=== PATIENT | female | born 1990 | race Caucasian/White ===

== ENCOUNTER → 2018-04-19 16:23 | Outpatient (CLI) | payer BC, SELFPAY | LOC: RAD 16:27 | PROVIDERS: Family Provider Family Medicine; PCP Family Medicine; Visit Provider Family Medicine | DX: M79.672 Pain in left foot (principal) | CPT/HCPCS: 73630 ==

== ENCOUNTER 2022-06-10 17:26 | Emergency (ER) | payer BC, SELFPAY ==
[2022-06-10 17:27] VITALS: BP 125/99; PULSE 90; RESP 15; TEMP 36.8; O2SAT 99; BMI 20.1
--- NOTE | 2022-06-10 17:59 | CT_ITS ---
STUDY: CT ABDOMEN AND PELVIS WITHOUT CONTRAST REASON FOR EXAM: Female, 31 years old. Right flank pain RADIATION DOSAGE (If Supplied By Facility): CTDIvol = ( 6.04 ) mGy, DLP = ( 259.71 ) mGycm TECHNIQUE: Transaxial images were obtained from the dome of the diaphragm to the symphysis pubis without oral contrast, and without intravenous contrast. Sagittal and coronal images were reconstructed. Individualized dose optimization techniques were used for this CT. COMPARISON: None. FINDINGS: The visualized lung bases are unremarkable. The visualized portions of the heart are within normal limits. Normal liver. Normal gallbladder and extrahepatic biliary system. Normal spleen. Normal pancreas. Normal bilateral adrenal glands. Normal right kidney. Normal left kidney. No stones or hydronephrosis. Normal visualized stomach. Normal small intestine. Normal colon. There is moderate stool. There is non-visualization of the appendix. Normal abdominal aorta. Normal inferior vena cava. Normal retroperitoneum. Normal urinary bladder. Normal visualized uterus. There is no free fluid in the abdomen or pelvis. Normal abdominal wall. Normal osseous structures. CT/Abdomen/Pelvis without Cont IMPRESSION: No mass or obstruction. No stones or hydronephrosis. Moderate stool. Electronically Signed: Mars Ford MD at 19:51 EDT ,
--- NOTE | 2022-06-10 18:00 | EDS_ITS ---
HPI History of Present Illness Chief Complaint: Abd Pain Informant: patient Onset/Context/Timing Onset: Yesterday Context: Gradual Onset Current Severity: Mild Maximum Severity: Moderate Narrative Narrative: Patient presents with right flank pain. She states pain started last evening. She was recently treated for UTI and completed a course of Bactrim. She states she still has slight burning at the end of urination but not nearly as severe as she had previously. No fever or chills. She denies any prior abdominal surgeries. No history of ovarian cyst. PFSH PFSH Medical History no medical history no medical history Home Medications ibuprofen 200 mg tablet 200 mg PO TID-QID PRN 11/29/17 [History Last Taken Unknown] azithromycin 250 mg tablet See Rx Instructions PO .COMPLEX #6 tabs 08/01/21 [Rx Last Taken Unknown] benzonatate 100 mg capsule 200 mg PO TID PRN cough #30 caps 08/01/21 [Rx Last Taken Unknown] Allergy/AdvReac Type Severity Reaction Status Date / Time No Known Allergies Allergy Verified 06/10/22 17:27 Social History Smoking Status: Never smoker alcohol intake: never ROS ROS ED Constitutional Constitutional ED: Denies chills or fever(s) Eyes Eyes: Denies change in vision or discharge from eye(s) ENT ENT ED: Denies discharge from eye(s), rhinorrhea or sore throat Cardiovascular Cardiovascular: Denies chest pain or palpitations Respiratory/Chest Respiratory/Chest: Denies cough or dyspnea Gastrointestinal Gastrointestinal: Reports abdominal pain; Denies diarrhea, nausea or vomiting Genitourinary Genitourinary ED: Reports dysuria Musculoskeletal Musculoskeletal: Denies back pain or extremity pain Integumentary Denies Abrasions or rash Neurologic Neurologic: Denies headache(s) or weakness Allergic/Immunologic Allergic/Immunologic ED: Denies lip swelling or urticaria EXAM Physical Exam Const Vital Signs: 06/10/22 17:27 06/10/22 19:47 Temperature 98.3 F Temperature Source Temporal Pulse Rate 90 Respiratory Rate 15 Blood Pressure 125/99 H Blood Pressure Mean 107 Pulse Ox 99 100 Oxygen Delivery Method Room Air Room Air Positive well nourished and well developed General Appearance ED: well developed HEENT Reports normocephalic and head/scalp atraumatic Eyes PERRL and EOMs intact bilaterally Neck supple Chest Wall inspection of chest normal and palpation of chest normal Resp normal respiratory effort and clear to auscultation bilaterally Cardio regular rate and regular rhythm GI non-tender Auscultation: hypoactive bowel sounds Palpation: soft Back/Spine General Back: CVA tenderness right Extremity normal to inspection Neuro oriented x3 and no sensory deficits noted Sensorium / Orientation: alert Motor Exam: strength 5/5 throughout Psych mental status grossly normal Skin no rashes or lesions noted MDM MDM MDM Narrative Medical decision making narrative: Patient given Toradol and IV fluids. Lab work obtained along with a CT flank. Urinalysis ordered. Lab Data Attestation: I reviewed the patient's lab results. Labs: Laboratory Results - last 24 hr 06/10/22 06/10/22 06/10/22 18:10 18:10 18:10 WBC 8.6 RBC 4.28 Hgb 13.9 Hct 40.5 MCV 94.6 MCH 32.5 H MCHC 34.3 RDW Std Deviation 44.1 H RDW Coeff of Jaye 12.7 Plt Count 280 MPV 9.7 Immature Gran % (Auto) 0.500 Neut % (Auto) 67.6 Lymph % (Auto) 21.6 [place] % (Auto) 8.9 Eos % (Auto) 0.8 Baso % (Auto) 0.6 Absolute Neuts (auto) 5.8 Absolute Lymphs (auto) 1.86 Nucleated RBC % 0 Sodium 139 Potassium 3.6 Chloride 107 Carbon Dioxide 25.0 Anion Gap 7 BUN 7 Creatinine 0.82 Estim Creat Clear Calc 80.23 Est GFR (MDRD) Af Amer 103 Est GFR (MDRD) Non-Af 85 BUN/Creatinine Ratio 8.5 L Glucose 89 Calcium 9.8 Serum , Qual NEGATIVE Urine Color Urine Clarity Urine pH Ur Specific [place] Urine Protein Urine Glucose (UA) Urine Ketones Urine Occult Blood Urine Nitrite Urine Bilirubin Urine Urobilinogen Ur Leukocyte Esterase Urine RBC Urine WBC Ur Squamous Epith Cells Urine Bacteria Urine Mucus 06/10/22 18:20 WBC RBC Hgb Hct MCV MCH MCHC RDW Std Deviation RDW Coeff of Jaye Plt Count MPV Immature Gran % (Auto) Neut % (Auto) Lymph % (Auto) [place] % (Auto) Eos % (Auto) Baso % (Auto) Absolute Neuts (auto) Absolute Lymphs (auto) Nucleated RBC % Sodium Potassium Chloride Carbon Dioxide Anion Gap BUN Creatinine Estim Creat Clear Calc Est GFR (MDRD) Af Amer Est GFR (MDRD) Non-Af BUN/Creatinine Ratio Glucose Calcium Serum , Qual Urine Color Straw Urine Clarity Clear Urine pH 8.0 Ur Specific [place] 1.010 Urine Protein Negative Urine Glucose (UA) Normal Urine Ketones Negative Urine Occult Blood Negative Urine Nitrite Negative Urine Bilirubin Negative Urine Urobilinogen Normal Ur Leukocyte Esterase Negative Urine RBC 0 SEEN Urine WBC 0 SEEN Ur Squamous Epith Cells 0-5 SEEN Urine Bacteria RARE Urine Mucus 0 SEEN Radiography Diagnostic Testing: Clinical Impression(s) from Imaging Studies Abdomen/Pelvis CT 06/10/22 17:59 IMPRESSION: No mass or obstruction. No stones or hydronephrosis. Moderate stool. Electronically Signed: Mars Ford MD at 19:51 EDT , Treatment and Re-Evaluation Narrative: CBC and chemistry studies unremarkable. test negative. Urinalysis reveals no sign of acute infection. CT flank reveals no mass or obstruction. Moderate stool noted. On repeat evaluation patient resting comfortably. Test results discussed with patient and at bedside. She was advised that her CT scan does show some constipation and she will fruit or nut picker a laxative. Discharge Plan Triage Chief Complaint: Abd Pain ED Provider: Evie Sanchez Dx/Rx/DC Orders Clinical Impression: Right flank pain, Constipation Instructions: ED Abdominal Pain Unkn Cause Fem, ED Constipation (Adult) Prescriptions: No Action ibuprofen 200 mg tablet 200 mg PO TID-QID PRN azithromycin 250 mg tablet See Rx Instructions PO .COMPLEX Qty: 6 0RF Rx Instructions: take 500 mg today (day 1), then 250 mg for 4 days (days 2-5) PO benzonatate 100 mg capsule 200 mg PO TID PRN (Reason: cough) Qty: 30 0RF Primary Care Provider: Ayden Esparza Referrals: Ayden Esparza DO [Primary Care Provider] - 1 Week if not improving Disposition Disposition: Home, Self Care
[2022-06-10] MEDS: Ketorolac 30 MG/ML Syringe IV (18:17)
[2022-06-10] MEDS: 0.9% Normal Saline 1,000 ML 150 ML IV (18:17)
[2022-06-10 18:25] LABS: Mucous, Urine 0 SEEN /hpf (<or=2+); Red Blood Cells-Urine 0 SEEN /hpf (0-5); White Blood Cells 0 SEEN /hpf (0-5)
[2022-06-10 18:27] LABS: Absolute Lymphocyte Count 1.86 X10^3/uL (0.83-4.51); Absolute Neutrophil Count 5.8 X10^3/uL (2.0-7.7); Basophil# 0.05 X10^3/uL; Basophil% 0.6 % (0-1); Eosinophil# 0.07 X10^3/uL; Eosinophils% 0.8 % (0-5); Hematocrit 40.5 % (37-47); Hemoglobin 13.9 g/dL (12.0-15.0); Lymphocyte # 1.86 X10^3/ul (0.83-4.51); Lymphocyte % 21.6 % (19-41); Mean Corp Hgb Conc 34.3 g/dL (32-36); Mean Corpuscular Hgb 32.5 pg (27.0-32.0); Mean Corpuscular Volume 94.6 fL (81-99); Mean Platelet Vol. 9.7 fl (6.2-12.0); Monocyte# 0.77 X10^3/uL; Monocyte% 8.9 % (0-10); NRBC Flagged by Analyzer 0 % (0-5); Neutrophil # 5.82 X10^3/uL (2.7-7.7); Neutrophil % 67.6 % (47-70); Platelet Count 280 K/mm3 (150-450); RBC Distribution Width CV 12.7 % (11.6-14.6); RBC Distribution Width SD 44.1 fl (35.1-43.9); Red Blood Count 4.28 M/mm3 (4.2-5.4); White Blood Count 8.6 K/mm3 (4.4-11.0)
[2022-06-10 18:35] LABS: Color, Urine Straw (Yellow); Glucose, Dipstick Normal (Normal); Ketone-Dipstick Negative (Negative); Leukocyte Esterase-Dipstick Negative /ul (Negative); Nitrite-Dipstick Negative (Negative); Occult Blood-Urine Negative /ul (Negative); Protein-Dipstick Negative (Negative); Urine Bilirubin Dipstick Negative (Negative); Urine Clarity Clear (Clear); Urine Urobilinogen Normal (Normal)
[2022-06-10 18:39] LABS: Anion Gap 7 (5-15); BUN 7 mg/dL (7-18); BUN/Creat Ratio 8.5 RATIO (10-20); Calcium,Total 9.8 mg/dL (8.5-10.1); Chloride 107 mmol/L (98-107); Creatinine, Serum 0.82 mg/dL (0.55-1.02); EST Glomerular Filtration Rate 85 mL/min (>60); Est Glom Filt Rate - Afr Amer 103 mL/min (>60); Estimated Creatinine Clearance 80.23 ml/min; Glucose 89 mg/dL (74-106); Potassium 3.6 mmol/L (3.5-5.1); Sodium Level 139 mmol/L (136-145)
[2022-06-10 18:41] LABS: Bacteria RARE /hpf (None Seen); Squamous Epithelial Cells - UA 0-5 SEEN /hpf (5-10)
[2022-06-10 19:04] LABS: Internal QC Validated? YES +Cl - CLEAR BKGD; Pregnancy, Serum, hCG Quali. NEGATIVE Negative
[2022-06-10 19:47] VITALS: O2SAT 100
[2022-06-10 20:34] VITALS: BP 106/75; PULSE 67; RESP 18; TEMP 36.8; O2SAT 98
== END 2022-06-10 20:41 | disposition home or self-care (01) ==
PROVIDERS: Emergency Provider Emergency Medicine; PCP Family Medicine; Visit Provider Emergency Medicine
DX: R10.9 Unspecified abdominal pain (principal); K59.00 Constipation, unspecified
CPT/HCPCS: 74176; 80048; 81001; 84703; 85025; 96374; 99283; J7030; A4216

== ENCOUNTER 2025-07-08 17:34 | Emergency (ER) | payer BC, SELFPAY ==
[2025-07-08 17:34] VITALS: BP 117/72; PULSE 82; RESP 16; TEMP 36.2; O2SAT 100; BMI 21.7
--- NOTE | 2025-07-08 18:01 | ED.VIS.FEGU ---
HPI HPI - Female History of Present Illness Chief Complaint: Vag Bld, Preg Informant: patient Pain Pain: Positive for Pelvic Pain (With heavy bleeding. Currently pain-free.) Quality: Positive for Cramping Current Severity: Gone Maximum Severity: Mild Bleeding Issue: Positive for Vaginal bleeding and Passing clots Onset: Days Context: Gradual Onset Timing: Intermittent Current Severity: Similar to period Associated Symptoms Associated Symptoms: Negative for Dysuria, Frequency or Urgency Test: Positive Sexually: Positive for Active Control: No control P: 2 Ab: 0 Narrative Narrative: 34-year-old female G3, P2 Ab0. Currently about 7 weeks . Has not seen an COUNTER CONTROL OPERATOR as of yet. Went to the care center. Had a positive test there. States she found out she was about 2 weeks ago with a home test. For the last week she has had intermittent vaginal bleeding heavy like a period and with clots. She has pelvic cramping with the bleeding but currently is completely pain-free. And currently is not bleeding. No fever. No dysuria. 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 Denies recent illness. No dysuria. Constitutional Constitutional ED: Denies chills or fever(s) Eyes Eyes: Denies blurry vision ENT ENT ED: Denies ear pain Cardiovascular Cardiovascular: Denies chest pain Respiratory/Chest Respiratory/Chest: Denies cough Gastrointestinal Gastrointestinal: Denies abdominal pain Genitourinary Genitourinary ED: Denies dysuria Musculoskeletal Musculoskeletal: Denies arthralgias Integumentary Denies abscess Neurologic Neurologic: Denies headache(s) Psychiatric Psychiatric: Denies anxiety Endocrine Endocrinology: Denies heat intolerance Hematologic/Lymphatic Hematologic/Lymphatic: Denies easy bleeding, easy bruising or lymphadenopathy Allergic/Immunologic Allergic/Immunologic ED: Denies mouth swelling, tongue swelling or urticaria EXAM Physical Exam Narrative Exam Narrative: Well-appearing 34-year-old female. Vital signs stable afebrile. Current blood pressure 117/72. Heart rate 82. She does not look septic toxic she is in no distress. She is companied by a male. H EENT exam pupils round react to light. Moist membranes. Neck nontender. Lungs clear to auscultation bilaterally. Heart regular rhythm rate about 80 no murmur. Chest wall and ribs nontender. Abdomen soft, nontender, nondistended normal bowel sounds without peritoneal suspect. Absolutely no reproducible tenderness. No uterine or suprapubic tenderness. Moving all 4 extremities. Nontender no edema. Neurologically she is awake alert. Answering questions following commands. Back nontender. Benign exam. Const Vital Signs: 07/08/25 17:34 07/08/25 19:54 07/08/25 21:00 Temperature 97.1 F L Temperature Source Temporal Pulse Rate 82 73 72 Respiratory Rate 16 18 18 Blood Pressure 117/72 115/70 Blood Pressure Mean 87 85 Pulse Ox 100 100 100 Oxygen Delivery Method Room Air Room Air Room Air MDM MDM MDM Narrative Medical decision making narrative: 34-year-old female G3, P2 Ab0 currently around 7 weeks with vaginal bleeding intermittent cramping. Currently is not bleeding nor cramping. Quant will be obtained. We know her blood type is a positive from prior labs. And a CBC will be obtained. If her quant is greater than 1500 I will obtain ultrasound. If not she will be discharged to follow-up with [facility] CONTROL OPERATOR. Repeat exam patient is doing well at 7:45 PM. They are aware of the quant and ultrasound has been ordered. I spoke to Dr. Lexi Fernandez around 10:40 PM. Patient will get a repeat quant in 48 hours. Follow-up with their office. Patient left prior to discharge. Had security look for they could not find her. I called and left a message on her cell phone to go over home-going instruction with her and her ultrasound results. She has been ordered an outpatient quant to be done in 2 days and follow-up with the [facility] CONTROL OPERATOR group. History & Record Review Discussion w/independent historian: Patient and Significant other Additional record(s) reviewed:: Prior inpatient record, Prior outpatient record, Prior ED visit and Prior labs Lab Data Attestation: I reviewed the patient's lab results. Lab results narrative: CBC shows a white count of 13.2. H&H of 10.0 and 29. Platelets 285. Quantitative hCG is 7,388. Transvaginal pelvic ultrasound shows a complex hypoechoic lesion in the endometrium measuring 19 mm. Questionable gestational sac. Labs: Laboratory Results - last 24 hr 07/08/25 18:12 WBC 13.2 H RBC 3.13 L Hgb 10.0 L Hct 29.3 L MCV 93.6 MCH 31.9 MCHC 34.1 RDW Std Deviation 44.9 H RDW Coeff of Jaye 13.2 Plt Count 285 MPV 9.5 Immature Gran % (Auto) 0.500 Neut % (Auto) 77.7 H Lymph % (Auto) 13.7 L [place] % (Auto) 6.8 Eos % (Auto) 1.0 Baso % (Auto) 0.3 Absolute Neuts (auto) 10.3 H Absolute Lymphs (auto) 1.81 Nucleated RBC % 0 HCG, Quant 7388 H Radiography Diagnostic Testing: Clinical Impression(s) from Imaging Studies Obstetrics Ultrasound 07/08/25 19:37 IMPRESSION: Complex hypoechoic lesion in the endometrium measuring up to 19 mm. This is questionable gestational sac. Beta HCG level is 7300. Repeat pelvic ultrasound in 10-14 days is recommended. Reading Location: [id number] Discharge Plan Triage Chief Complaint: Vag Bld, Preg ED Provider: Nando Espana Dx/Rx/DC Orders Clinical Impression: First trimester , Vaginal bleeding, Threatened miscarriage Instructions: Miscarriage Threatened Prescriptions: No Action lisdexamfetamine 50 mg capsule 50 mg PO DAILY Other Ambulatory Orders: hCG Titer Quant., Serum (Stat) Timeframe: [id number] Facility: [facility] - Location: Laboratory Ordered By: Dr. Nando Espana Primary Care Provider: Care Physician,No Primary Referrals: Ayden Esparza DO [Non-Staff, Medical] Lexi Fernandez MD [Med Staff - Active Staff, Obstetrics-Gynecology (OBGYN)] Care Physician,No Primary [Primary Care Provider, Medical] - As soon as possible Activity Restrictions/Additional Instructions: I spoke to the COUNTER CONTROL OPERATOR doctor on-call Dr. Lexi Fernandez. They want you to get a repeat quant in 48 hours that the blood test we did tonight. Call them Wednesday morning to be seen in their office later this week after you get the second quant. They will reevaluate you look at your ultrasound results and your blood tests and go from there. Return to the emergency department if you are feeling worse having really heavy bleeding or severe pain. It is very important you follow-up. Print Language: [place] Disposition Disposition: Home, Self Care
--- NOTE | 2025-07-08 18:22 | ED.RN ---
pt refused saline lock. requested straight stick for blood sample. updated.
--- OUTSIDE RECORDS SUMMARY | 2025-07-08 18:22 | XMS RPT_ITS | CCD ---
Author Organization [facility] Care Team Providers Care Director Of Corporate Strategy Name Role Phone Milan Velarde Primary Care Provider Kendra Guzman (Career Development Specialist Travel Agent) Primary Care Provid er Ian ELECTRIC RAZOR MECHANIC.Kendra FOSTER Primary Care Provider KENDRA GUZMAN Attending Unavailable KENDRA GUZMAN Primary Care Unavailable Ian ELECTRIC RAZOR MECHANIC.Kendra FOSTER Primary Care Provider Ian ELECTRIC RAZOR MECHANIC.Kendra FOSTER Primary Care Provider Karuna Mcdonald Attending Unavailable Ayden Esparza Referring Unavailable Ayden Esparza Primary Care Unavailable CECILIA RUSHING Referring Unavailable CECILIA RUSHING Attending Unavailable KENDRA GUZMAN Primary Care Unavailable CECILIA RUSHING Attending Unavailable KENDRA GUZMAN Primary Care Unavailable CECILIA RUSHING Referring Unavailable CECILIA RUSHING Referring Unavailable CECILIA RUSHING Attending Unavailable KENDRA GUZMAN Primary Care Unavailable CECILIA RUSHING Referring Unavailable KENDRA GUZMAN Primary Care Unavailable Medications Current Medications Medication Drug Class(es) Dates Sig (Normalized) Sig (Original) azithromycin 250 mg oral tablet (1 source) Macrolide Antimicrobial Start: 08-01-2021 Azithromycin Active 0 PO .COMPLEX August 01, 2021 1:00am take 500 mg today (day 1), then 250 mg for 4 days (days 2-5) PO benzonatate 100 mg oral capsule (1 source) Non-narcotic Antitussive Start: 08-01-2021 take 200 mg by mouth three times daily Benzonatate Active 200 MG PO THREE TIMES A DAY August 01, 2021 1:00am busPIRone hydrochloride 10 mg oral tablet (1 source) Start: 10-19-2016 End: 06-09-2022 take 1 tablet by mouth three times daily busPIRone (BUSPAR) 10 mg tablet Indications: Anxiety state Take 1 tablet by mouth three times daily. 90 tablet 1 10/19/2016 06/09/2022 Discontinued Comment on above: Take 1 tablet by kaylah th three times daily. Ethinyl Estradiol / norgestimate (2 sources) Progestin, Estrogen Start: 06-01-2016 End: 06-09-2022 take 1 tablet by mouth once daily PREVIFEM 0.25-35 mg-mcg per tablet Indications: Encounter for gynecological examination (general) (routine) without abnormal findings , Oral contraceptive prescribed Take 1 tablet by mouth once daily. 1 Package 11 06/01/2016 06/09/2022 Discontinued Start: 06-01-2016 take 1 tablet by kaylah th once daily PREVIFEM 0.25-35 mg-mcg per tablet Indications: Encounter for gynecological examination (general) (routine) without abnormal findings , Oral contraceptive prescribed Take 1 tablet by mouth once daily. 1 Package 11 06/01/2016 Active Comment on above: Take 1 tablet by kaylah th once daily. ibuprofen 200 mg oral tablet (1 source) Nonsteroidal Anti-inflammatory Drug Start: 018 take 200 mg by mouth three to four times daily Ibuprofen Active 200 MG PO 3 to 4 times per day November 29, 2017 12:00am lisdexamfetamine dimesylate 50 mg oral capsule (20 sources) Central Nervous System Stimulant Start: 024 End: 025 take 1 capsule by mouth once daily lisdexamfetamine (VYVANSE) 50 mg capsule Indications: ADHD (attention deficit hyperactivity disorder), inattentive type Take 1 capsule by mouth once daily for 30 days. Patient should start on June 18, 2025. 30 capsule 06/18/2025 07/18/2025 Active Start: 03-28-2024 End: 05-31-2024 take 1 capsule by mouth once daily lisdexamfetamine (VYVANSE) 40 mg capsule Indications: ADHD (attention deficit hyperactivity disorder), inattentive type Take 1 capsule by mouth once daily for 30 days. 30 capsule 05/01/2024 05/16/2024 Discontinued (Course of therapy completed) nitrofurantoin, macrocrystals 25 mg / nitrofurantoin, monohydrate 75 mg oral capsule (3 sources) Nitrofuran Antibacterial Start: 06-09-2022 End: 06-14-2022 take 1 capsule by mouth twice daily nitrofurantoin monohydrate and macrocrystal (MACROBID) 100 mg capsule Indications: Dysuria Take 1 capsule by mouth twice daily for 5 days. 10 capsule 0 06/09/2022 06/14/2022 Active Comment on above: Take 1 capsule by mo uth twice daily for 5 days. Completed/Discontinued Medications Medication Drug Class(es) Dates Sig (Normalized) Sig (Original) 24 hr amphetamine aspartate 5 mg / amphetamine sulfate 5 mg / dextroamphetamine saccharate 5 mg / dextroamphetamine sulfate 5 mg extended release oral capsule (20 sources) Central Nervous System Stimulant Start: 05-28-2023 End: 03-28-2024 take 1 capsule by mouth once daily amphetamine-dextro amphetamine XR (ADDERALL XR) 20 mg capsule Indications: ADHD (attention deficit hyperactivity disorder), inattentive type Take 1 capsule by mouth once daily for 30 days. 30 capsule 0 02/22/2024 03/28/2024 Discontinued (Course of therapy completed) Start: 01-23-2023 take 1 capsule by mo uth once daily amphetamine-dextroamphetamine XR (ADDERA LL XR) 20 mg biphasic capsule Indications: ADHD (attention deficit hyperactivity disorder), inattentive type Take 1 capsule by mouth once daily for 30 days. 30 capsule 0 04/13/2023 Active Start: 10-21-2022 End: 12-25-2022 take 1 capsule by mouth once daily amphetamine-dextroamphetamine XR (ADDERA LL XR) 20 mg 24 hr capsule Indications: ADHD (attention deficit hyperactivity disorder), inattentive type Take 1 capsule by mouth once daily for 30 days. 30 capsule 0 11/25/2022 12/25/2022 Active Start: 2022 End: 10-21-2022 take 1 capsule by mouth once daily amphetamine-dextroamphetamine XR (ADDERA LL XR) 10 mg 24 hr capsule Indications: ADHD (attention deficit hyperactivity disorder), inattentive type Take 1 capsule by mouth once daily for 30 days. 30 capsule 0 2022 10/21/2022 Discontinued Comment on above: Take 1 capsule by mo ut once daily for 30 days. Take 1 capsule by mo ut once daily for 30 days. Do not start before January 23, 2023. Take 1 capsule by mo ut once daily for 30 days. Do not start before February 22, 2023. Take 1 capsule by mo ut once daily for 30 days. Do not start before June 27, 2023. Take 1 capsule by mo ut once daily for 30 days. Do not start before July 27, 2023. FLUoxetine 10 mg oral capsule (10 sources) Serotonin Reuptake Inhibitor Start: End: take 3 capsules by mouth once daily FLUoxetine (PROZAC) 10 mg capsule Take 3 capsules by mouth once daily. 90 capsule 1 12/24/2023 03/28/2024 Discontinued (Course of therapy completed) Start: 06-18-2023 End: 08-17-2023 take 1 capsule by mouth once daily FLUoxetine (PROZAC) 40 mg capsule Take 1 capsule by mouth once daily. 30 capsule 1 06/18/2023 08/17/2023 Active Start: 05-28-2023 End: 06-18-2023 take 1 capsule by mouth once daily FLUoxetine (PROZAC) 20 mg capsule Take 1 capsule by mouth once daily. 30 capsule 0 05/28/2023 06/18/2023 Discontinued Comment on above: Take 1 capsule by mo [facility] once daily. Take 3 capsules by [facility] once daily. sertraline 50 mg oral tablet (2 sources) Serotonin Reuptake Inhibitor Start: 10-07-2016 End: 11-29-2017 take 50 mg by mouth once daily Sertraline Discontinued 50 MG PO DAILY October 07, 2016 1:00am November 29, 2017 11:42am Start: 07-27-2016 End: 06-09-2022 take 1 tablet by mouth once daily sertraline (ZOLOFT) 100 mg tablet Indications: Anxiety state Take 1 tablet by mouth once daily. 30 tablet 5 07/27/2016 06/09/2022 Discontinued Comment on above: [facility] venlafaxine 75 mg extended release oral capsule (12 sources) Serotonin and Norepinephrine Reuptake Inhibitor Start: 11-26-19 End: 06-16-20 take 1 capsule by mouth once daily venlafaxine ER (EFFEXOR XR) 37.5 mg 24 hr capsule Take 1 capsule by mouth once daily. 30 capsule 0 05/17/2023 06/16/2023 Active Start: 08-26-2022 End: 05-17-2023 take 1 capsule by mouth once daily venlafaxine ER (EFFEXOR XR) 75 mg 24 hr capsule Take 1 capsule by mouth once daily. Take with 37.5 mg dose. 90 capsule 0 12/24/2022 05/17/2023 Discontinued (Discontinued by Patient) Start: 07-22-2022 End: 09-04-2022 take 1 tablet by mouth once daily at mealtime, then take 2 tablets by mouth once daily at mealtime venlafaxine (EFFEXOR) 25 mg tablet Take 1 tablet by mouth daily with food for 14 days, THEN 2 tablets daily with food. 74 tablet 0 07/22/2022 08/26/2022 Discontinued (Course of therapy completed) Comment on above: Take 1 tablet by kaylah daily with food for 14 days, THEN 2 tablets daily with food. Take 1 capsule by mo uth once daily. Take 1 capsule by mo uth once daily. Take with 37.5 mg dose. Take 1 capsule by mo uth once daily. Take with 75 mg dose. Problems Active Problems Problem Classification Problem Date Documented Da te Episodic/Chronic Abdominal pain (1 source) Right flank pain; Translations: [Unspecified abdominal pain] Episodic Acute bronchitis (1 source) Acute bronchitis; Translations: [Acute bronchitis, unspecified] Episodic Administrative/social admission (2 sources) Stress; Translations: [Other specified problems related to psychosocial circumstances] 09-18-2024 Episodic Anxiety disorders (20 sources) Anxiety state; Translations: [Generalized anxiety disorder] Onset: 06-01-2016 06-01-2016 Chronic Attention-deficit, conduct, and disruptive behavior disorders (20 sources) Attention deficit hyperactivity disorder, predominantly inattentive type; Translations: [Attention-deficit hyperactivity disorder, predominantly inattentive type] Onset: 2022 Chronic Attention-deficit, conduct, and disruptive behavior disorders (1 source) Attention-deficit hyperactivity disorder, unspecified type; Translations: [Attention-deficit hyperactivity disorder, unspecified type] Onset: 02-21-2024 Chronic Attention-deficit, conduct, and disruptive behavior disorders (1 source) Attention-deficit hyperactivity disorder, predominantly inattentive type; Translations: [ADHD (attention deficit hyperactivity disorder), inattentive type] Onset: 2022 Chronic Contraceptive and procreative management (2 sources) Encounter for initial prescription of contraceptive pills; Translations: [Encounter for other general counseling and advice on contraception] Onset: 02-21-2024 06-01-2016 Episodic Genitourinary symptoms and ill-defined conditions (2 sources) Dysuria; Translations: [Dysuria] Onset: 06-09-2022 Episodic Nonspecific chest pain (1 source) Chest pain; Translations: [Chest pain, unspecified] Episodic Other aftercare (3 sources) Long-term current use of drug therapy; Translations: [Other terminal worker (current) drug therapy] 09-18-2024 Episodic Other gastrointestinal disorders (1 source) Constipation; Translations: [Constipation, unspecified] Episodic Other nutritional; endocrine; and metabolic disorders (1 source) Weight gain; Translations: [Abnormal weight gain] 03-28-2024 Episodic Other skin disorders (1 source) Callosity; Translations: [Corns and callosities] Episodic Substance-related disorders (1 source) Psychoactive substance-induced withdrawal syndrome; Translations: [Other psychoactive substance use, unspecified with withdrawal, unspecified] 05-17-2023 Episodic Unclassified (1 source) NO SHOW 11-16-2023 Past or Other Problems Problem Classification Problem Date Documented Da te Episodic/Chronic Other aftercare (20 sources) Patient encounter status; Translations: [Encounter for therapeutic drug level monitoring] Onset: 2022 Episodic Other aftercare (1 source) Other senior living (current) drug therapy; Translations: [Encounter for long-term (current) use of medications] Onset: 09-05-2024 Episodic Results Test Name Value Interpretation Reference Range Facility CNOVon 04-03-2025 CNOV Office Visit (PSWSTR ) DILLAN MELO ([id number]) 1990 F Date Time Provider Department 04/03/25 2:30 PM CECILIA RUSHING PSWSTR During your visit today, we recorded the following information about you: Pulse Respiration Blood pressure Weight 88/minute 16/minute 110/72 55.5 kg Cecilia Rushing, ELECTRIC RAZOR MECHANIC.INSTRUCTOR ROBOTICS 04/09/2025 11:53 PM Signed FOLLOW UP - PSYCHIATRIC PROGRESS NOTE Visit Type:In person Recording using ambient i.[employer] electronics software for draft documentation of the visit was discussed with the patient/authorized regional sales representative; all questions welcomed and answered. Patient/authorized regional sales representative agreed to proceed CC: Outpatient follow-up and safety monitoring of previously prescribed psychiatric medication, psychotherapy or other treatment HPI: Patient is a 34-year-old female with a history of ADHD and JOHANN, presenting for follow-up and medication management. Patient reports that life has remained "the same" since her last visit approximately 8 months ago, describing her current state as "okay" but "busy." She attributes much of her busyness to her children's activities and her new relationship with her boyfriend of 6 months. She expresses a desire for more free time, noting that her schedule feels "self-inflicted" due to her commitments. She reports that her current dose of Vyvanse 50 mg is effective in managing her ADHD symptoms, stating that it lasts well enough throughout the day. She notes that taking the medication too late on weekends can make it harder to fall asleep at her desired time. She feels that her focus and concentration at work are good, and she is able to keep up without feeling stressed. Her supervisors have always known her as a good employee since she started the medication around the same time she began her current job. She does not report any issues with anxiety, stating that she does not feel overly anxious. She describes herself as a "grazer" when it comes to eating, often consuming small bites throughout the day. She acknowledges a tendency to eat sweets and carbohydrates, particularly donuts, and expresses a desire to improve her dietary choices. She has not explored protein shakes or smoothies but is open to the idea. She reports eating more meat than usual due to her boyfriend's interest in smoking meats. She has two daughters, ages 13 and 14, whom she describes as "a little immature" in a positive way. They attend a Protestant school, which she believes helps maintain their naivety. She allows them to watch TV during the summer but monitors their alexa usage, noting that they are obedient and do not try to sneak apps like ApoVaxt. Her daughters are involved in team sports and drama programs outside of school, which keeps them busy. She shares custody of her daughters with her ex-, who lost his job twice a few months ago, causing temporary stress due to delayed child support payments. Her daughters spend time with him a couple of times a week during the summer. She receives help from her grandparents for pick-ups and drop-offs when needed. She describes herself as introverted and notes that her new relationship has been an adjustment, as she was used to being alone. Her boyfriend wants to see her as much as possible, but she prefers to meet once a week. She feels that her boyfriend is making efforts to be present with her children, which she appreciates. She reports no new physical health issues or medications. She denies any recent car accidents but admits to speeding due to running late frequently. She describes "time blindness" as a challenge, often losing track of time and running late for work. Her workplace is strict about punctuality, and she has had to take half days when running late. Risks and benefits of the medication, including any black box warnings, were discussed with the patient. Interval Progress: Slightly improved PATIENT DATA: Generalized Anxiety Disorder Scale (JOHANN-7) 06/18/2023 09/07/2023 09/05/2024 JOHANN - 7 SCORES Score 5 1 0 (0-4) minimal anxiety, (5-9) mild anxiety, (10-14) moderate anxiety, (15-21) severe anxiety Patient Health Questionnaire (PHQ-9) 06/18/2023 09/07/2023 09/05/2024 PHQ-9 Score 2 0 0 Data saved with a previous flowsheet row definition (0-4) minimal depression, (5-9) mild depression, (10-14) moderate depression, (15-19) moderately severe depression, (20-27) severe depression PROMIS Global Health 09/21/2022 12/24/2022 05/28/2023 PROMIS Global Health - (T-Scores - the mean of general population = 50. Five points is a clinically meaningful difference.) Physical T-Score 57.7 54.1 54.1 Mental T-Score 45.8 38.8 25.1 PAST MEDICAL HISTORY Diagnosis Date Altered bowel function Anxiety state Diarrhea Oral contraceptive prescribed PAST SURGICAL HISTORY Procedure Laterality Date NONE Current Outpati (more content not included)... Normal [facility] Comprehensive metabolic 2000 panelon 12-16-2024 Albumin [Mass/Vol] 4.4 g/dL Normal 3.9-4.9 [facility] Comment on above: Order Comment: Speci men Type: BLOOD SPECIMEN Ordering Facility: [facility] Address: [address] [place] [address] Performed By: #### 2 4323-8 #### [facility] CLIA [id number] [address] [place] [address] [place] ALP [Catalytic activity/Vol] 44 U/L Normal 34-123 [facility] Comment on above: Order Comment: Speci men Type: BLOOD SPECIMEN Ordering Facility: [facility] Address: [address] [place] [address] Performed By: #### 2 4323-8 #### [facility] CLIA [id number] [address] [place] [address] [place] ALT [Catalytic activity/Vol] 13 U/L Normal 7-38 [facility] Comment on above: Order Comment: Speci men Type: BLOOD SPECIMEN Ordering Facility: [facility] Address: [address] [place] [address] Performed By: #### 2 4323-8 #### [facility] CLIA [id number] [address] [place] [address] [place] Anion gap [Moles/Vol] 11 mmol/L Normal 8-15 [facility] Comment on above: Order Comment: Speci men Type: BLOOD SPECIMEN Ordering Facility: [facility] Address: [address] [place] [address] Performed By: #### 2 4323-8 #### [facility] CLIA [id number] [address] [place], [place] [id number] [place] AST [Catalytic activity/Vol] 24 U/L Normal 13-35 [facility] Comment on above: Order Comment: Speci men Type: BLOOD SPECIMEN Ordering Facility: [facility] Address: [address] [place] [address] Performed By: #### 2 4323-8 #### [facility] CLIA [id number] [address] [place] [address] [place] Bilirubin [Mass/Vol] 0.3 mg/dL Normal 0.2-1.3 [facility] Comment on above: Order Comment: Speci men Type: BLOOD SPECIMEN Ordering Facility: [facility] Address: [address] [place] [address] Performed By: #### 2 4323-8 #### [facility] CLIA [id number] [address] [place] [address] [place] Calcium [Mass/Vol] 9.7 mg/dL Normal 8.5-10.2 [facility] Comment on above: Order Comment: Speci men Type: BLOOD SPECIMEN Ordering Facility: [facility] Address: [address] [place] [address] Performed By: #### 2 4323-8 #### [facility] CLIA [id number] [address] [place], [place] [id number] [place] Chloride [Moles/Vol] 105 mmol/L Normal 98-107 [facility] Comment on above: Order Comment: Speci men Type: BLOOD SPECIMEN Ordering Facility: [facility] Address: [address] [place] [address] Performed By: #### 2 4323-8 #### [facility] CLIA [id number] [address] [place], [place] [address] [place] CO2 [Moles/Vol] 24 mmol/L Normal 22-30 [facility] Comment on above: Order Comment: Speci men Type: BLOOD SPECIMEN Ordering Facility: [facility] Address: [address] [place] [address] Performed By: #### 2 4323-8 #### [facility] CLIA [id number] [address] [place] [address] [place] Creatinine [Mass/Vol] 0.70 mg/dL Normal 0.58-0.96 [facility] Comment on above: Order Comment: Speci men Type: BLOOD SPECIMEN Ordering Facility: [facility] Address: [address] [place] [address] Performed By: #### 2 4323-8 #### [facility] CLIA [id number] [address] [place] [address] [place] Creatinine and Glomerular filtration rate.predicted panel (S/P/Bld) 116 mL/min/1.73m??? Normal >=60 [facility] Comment on above: Order Comment: Speci men Type: BLOOD SPECIMEN Ordering Facility: [facility] Address: [address] [place] [address] Result Comment: Samantha mated Glomerular Filtration Rate (eGFR) is calculated using the 2020 CKD-EPI creatinine equation. This equation utilizes serum creatinine, sex, and age as parameters. The creatinine assay has traceable calibration to isotope dilution-mass spectrometry. Refer to KDIGO guidelines for clinical interpretation. In patients with unstable renal function, e.g. those with acute kidney injury, the eGFR may not accurately reflect actual GFR. Performed By: #### 2 4323-8 #### [facility] CLIA [id number] [address] [place], [place] [address] [place] Glucose [Mass/Vol] 62 mg/dL Low 74-99 [facility] Comment on above: Order Comment: Speci men Type: BLOOD SPECIMEN Ordering Facility: [facility] Address: [address] [place] [address] Result Comment: The [place] Diabetes Association (ADA) provides guidance for cutoff values for fasting glucose and random glucose. The ADA defines fasting as no caloric intake for at least 8 hours. Fasting plasma glucose results between 100 to 125 mg/dL indicate increased risk for diabetes (prediabetes). Fasting plasma glucose results greater than or equal to 126 mg/dL meet the criteria for diagnosis of diabetes. In the absence of unequivocal hyperglycemia, results should be confirmed by repeat testing. In a patient with classic symptoms of hyperglycemia or hyperglycemic crisis, random plasma glucose results greater than or equal to 200 mg/dL meet the criteria for diagnosis of diabetes. Reference: Standards of Medical Care in Diabetes 2016, [place] Diabetes Association. Diabetes Care. 2016.39(Suppl 1). Performed By: #### 2 4323-8 #### [facility] CLIA [id number] [address] [place] [address] [place] Potassium [Moles/Vol] 5.2 mmol/L High 3.7-5.1 [facility] Comment on above: Order Comment: Speci men Type: BLOOD SPECIMEN Ordering Facility: [facility] Address: [address] [place] [address] Performed By: #### 2 4323-8 #### [facility] CLIA [id number] [address] [place] [address] [place] Protein [Mass/Vol] 7.1 g/dL Normal 6.3-8.0 [facility] Comment on above: Order Comment: Speci men Type: BLOOD SPECIMEN Ordering Facility: [facility] Address: [address] [place] [address] Performed By: #### 2 4323-8 #### [facility] CLIA [id number] [address] [place] [address] [place] Sodium [Moles/Vol] 140 mmol/L Normal 136-144 [facility] Comment on above: Order Comment: Speci men Type: BLOOD SPECIMEN Ordering Facility: [facility] Address: [address] [place] [address] Performed By: #### 2 4323-8 #### [facility] CLIA [id number] [address] [place], [place] [address] [place] Urea nitrogen [Mass/Vol] 10 mg/dL Normal 7-21 [facility] Comment on above: Order Comment: Speci men Type: BLOOD SPECIMEN Ordering Facility: [facility] Address: [address] [place] [address] Performed By: #### 2 4323-8 #### [facility] CLIA [id number] [address] [place] [address] [place] TOXICOLOGY SCREEN, ROUTINE U RINEon 12-16-2024 Amphetamines Confirm (U) [Mass/Vol] Positive Abnormal Negative [facility] Comment on above: Order Comment: Speci men Type: URINE SPECIMEN Ordering Facility: [facility] Address: [address] [place] [address] Result Comment: Cuto ff threshold at 1000 ng/mL. Performed By: #### U TOX2 #### [facility] CLIA [id number] [address] [place] [address] [place] BARBITURATES, URINE Negative Normal Negative [facility] Comment on above: Order Comment: Speci men Type: URINE SPECIMEN Ordering Facility: [facility] Address: [address] [place] [address] Result Comment: Cuto ff threshold at 200 ng/mL. Performed By: #### U TOX2 #### [facility] CLIA [id number] [address] [place] [address] [place] BENZODIAZEPINES, UR Negative Normal Negative [facility] Comment on above: Order Comment: Speci men Type: URINE SPECIMEN Ordering Facility: [facility] Address: [address] [place] [address] Result Comment: Cuto ff threshold at 200 ng/mL. Performed By: #### U TOX2 #### [facility] CLIA [id number] [address] [place] [address] [place] Cannabinoids Screen Ql (U) Negative Normal Negative [facility] Comment on above: Order Comment: Speci men Type: URINE SPECIMEN Ordering Facility: [facility] Address: [address] [place] [address] Result Comment: Cuto ff threshold at 50 ng/mL. Performed By: #### U TOX2 #### [facility] CLIA [id number] [address] [place] [address] [place] Cocaine Ql (U) Negative Normal Negative [facility] Comment on above: Order Comment: Speci men Type: URINE SPECIMEN Ordering Facility: [facility] Address: [address] [place] [address] Result Comment: Cuto ff threshold at 300 ng/mL. Performed By: #### U TOX2 #### [facility] CLIA [id number] [address] [place] [address] [place] Ethanol (U) [Mass/Vol] <11 Normal <11 [facility] Comment on above: Order Comment: Speci men Type: URINE SPECIMEN Ordering Facility: [facility] Address: [address] [place] [address] Performed By: #### U TOX2 #### [facility] CLIA [id number] [address] [place] [address] [place] Opiates Screen Ql (U) Negative Normal Negative [facility] Comment on above: Order Comment: Speci men Type: URINE SPECIMEN Ordering Facility: [facility] Address: [address] [place] [address] Result Comment: Cuto ff threshold at 300 ng/mL. Performed By: #### U TOX2 #### [facility] CLIA [id number] [address] [place] [address] [place] oxyCODONE cutoff Screen (U) [Mass/Vol] Negative Normal Negative [facility] Comment on above: Order Comment: Speci men Type: URINE SPECIMEN Ordering Facility: [facility] Address: [address] [place] [address] Result Comment: Cuto ff threshold at 100 ng/mL. Performed By: #### U TOX2 #### [facility] CLIA [id number] [address] [place] [address] [place] Phencyclidine Ql (U) Negative Normal Negative [facility] Comment on above: Order Comment: Speci men Type: URINE SPECIMEN Ordering Facility: [facility] Address: [address] [place] [address] Result Comment: Cuto ff threshold at 25 ng/mL. Performed By: #### U TOX2 #### [facility] CLIA [id number] [address] [place] [address] [place] [facility] C[facility] Telephone (PSWSTR) DILLAN MELO ([id number]) 1990 F Date Time Provider Department 12/08/24 CECILIA RUSHING PSWSTR During your visit today, we recorded the following information about you: Isaura Gann LPN 12/08/2024 3:42 PM Signed Please add order for labs prior to patient appointment. Thank you, ASHWINI Morales Nishi J, APRN.[facility] 12/11/2024 10:43 AM Signed Addended by: CECILIA RUSHING on: 12/11/2024 10:43 AM Modules accepted: Orders Cecilia Rushing APRN.[facility] 12/11/2024 10:44 AM Signed Please notify patient that the lab orders have been placed. There is one urine and one blood lab work. She does not have to fast for these labs. She will also need to complete EKG but it can be done during her next in person appointment. Isaura Gann LPN 12/11/2024 1:47 PM Signed Pt aware of orders. Isaura Gann LPN Allergies As of Date: 12/08/2024 (No Known Allergies) Date Reviewed: 09/05/2024 Reviewed by: Isaura Gann LPN - Fully Assessed Primary Visit Diagnosis:Encounter for long-term (current) use of medications [Z79.899] Order(s):TOXICOLOGY SCREEN, ROUTINE URINE [SQUTOX2] Order #: [id number] FUTURE COMPREHENSIVE METABOLIC PANEL [SQCMP] Order #: [id number] FUTURE ECG COMPLETE [ECG01] Order #: [id number] FUTURE Prescriptions as of 12/11/2024 - lisdexamfetamine (VYVANSE) 50 mg capsule Take 1 capsule by mouth once daily for 30 days. - lisdexamfetamine (VYVANSE) 50 mg capsule Take 1 capsule by mouth once daily for 30 days. Patient should start on October 05, 2024. - lisdexamfetamine (VYVANSE) 50 mg capsule Take 1 capsule by mouth once daily for 30 days. Patient should start on November 04, 2024. Problem List As Of Date 12/08/2024 Noted Resolved JOHANN (generalized anxiety disorder) [F41.1] Oral contraceptive prescribed [Z30.011] Encounter for therapeutic drug level monitoring*2022 ADHD (attention deficit hyperactivity disorder)*2022 Encounter Status:Closed by ISAURA GANN on 12/08/24 [facility] CNOVon 09-05-2024 CNOV Office Visit (PSWSTR ) DILLAN MELO ([id number]) 1990 F Date Time Provider Department 09/05/24 2:00 PM CECILIA RUSHING PSWSTR During your visit today, we recorded the following information about you: Pulse Respiration Blood pressure Weight 72/minute 16/minute 122/76 57.4 kg Cecilia Rushing, ELECTRIC RAZOR MECHANIC.[facility] 09/18/2024 11:26 PM Signed FOLLOW UP - PSYCHIATRIC PROGRESS NOTE PATIENT: Dillan Melo DATE: September 05, 2024 Visit Type:In person All information is from Patient report except when noted. This evaluation is NOT intended for forensic, disability or child custody purposes. CC: Presenting today for follow up regarding psychiatric medication management. HPI: Treatment Plan from Last Visit on 05/16/2024: TREATMENT PLAN: Increase Vyvanse to 50 mg to address ADHD symptoms. If patient continues to struggle with executive dysfunction concerns, discuss engagement in neuro divergence IOP through [facility]. Order urine tox screen and CMP at the next appointment. Practice gamifying tasks to increase urgency to help you complete them on time. Today Dillan shares that she spontaneously planned a trip to [place]. Shares that her kids are excited to go to [place]. Shares that sometimes she won't take her Vyvanse on the weekends when she sleeps in too much. The increase in Vyvanse has helped with her symptoms. Denies any side effects from the medicine. Does not notice it wearing off during the day. No dry mouth side effects. Denies changes in her overall physical health. I am one point from being fired" due to tardiness to work. She misunderstood the new policy. I have to have perfect attendance for the next 5 months". She is stressed about this and wonders if she should find a new job. She has gotten a real good review and her productivity is good. 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 She shares that her executive functioning has improved. Sometimes will have situation stress. Trying to work through changing the thought patterns". Also has stress about missing work for having appointments. Discussed talking to HR about intermittent FMLA paperwork. Discussed completing lab work for monitoring. Interval Progress: Slightly improved PATIENT DATA: Generalized Anxiety Disorder Scale (OJHANN-7) 06/18/2023 09/07/2023 09/05/2024 JOHANN - 7 SCORES Score 5 1 0 (0-4) minimal anxiety, (5-9) mild anxiety, (10-14) moderate anxiety, (15-21) severe anxiety Patient Health Questionnaire (PHQ-9) 06/18/2023 09/07/2023 09/05/2024 PHQ-9 Score 2 0 0 (0-4) minimal depression, (5-9) mild depression, (10-14) moderate depression, (15-19) moderately severe depression, (20-27) severe depression PAST MEDICAL HISTORY Diagnosis Date Altered bowel function Anxiety state Diarrhea Oral contraceptive prescribed PAST SURGICAL HISTORY Procedure Laterality Date NONE ALLERGIES No Known Allergies Current Outpatient Medications on File Prior to Visit Medication Sig lisdexamfetamine (VYVANSE) 50 mg capsule Take 1 capsule by mouth once daily for 30 days. No current facility-administered medications on file prior to visit. ROS: See HPI PFSH: See HPI VITAL SIGNS: 09/05/24 1357 BP: 122/76 Pulse: 72 Resp: 16 Weight: 57.4 kg (126 lb 9.6 oz) Last 3 Encounter BP Readings: Date: BP: 09/05/2024 122/76 05/16/2024 114/68 03/28/2024 117/81 MENTAL STATUS EXAMINATION: Appearance: Well dressed, well groomed Behavior: Behaves appropriately during the encounter Social relatedness: Euthymic Speech/Language: The patient demonstrates appropriate tone, prosody, silva, phonetics, and syntax Mood: stressed Affect: Full and appropriate to topic Orientation: Person, Place, Time and Situation Associations: Intact and linear Hallucinations: None Delusions: None Suicidal Ideation: No suicidal ideation, intent or plan. Homicidal Ideation: No homicidal ideation, intent or plan. Insight: Appropriate Judgment: Appropriate DATA REVIEWED: Psychiatric scales, Electronic medical record, and The PDMP report was reviewed and found to be appropriate without any signs of misuse or diversion. DIAGNOSIS: Encounter for long-term (current) use of medications Adhd (attention deficit hyperactivity disorder), inattentive type (primary encounter diagnosis) Johann (generalized anxiety disorder) Psychosocial stressors GAF: -70-61 Some mild symptoms or some difficulty in social, occupational, or school functioning, but generally functioning pretty well. TREATMENT PLAN: Continue Vyvanse at the 50 mg dose to address ADHD symptoms. Complete monitoring lab work prior to the next appointment. Will complete EKG for monitoring if patient continues to notice benefit from Vyvanse at this dose. Encourage (more content not included)... Normal [facility] CNOVon 05-16-2024 CNOV Office Visit (PSWSTR ) DILLAN MELO ([id number]) 1990 F Date Time Provider Department 05/16/24 8:30 AM CECILAI RUSHING PSWSTR During your visit today, we recorded the following information about you: Pulse Respiration Blood pressure Weight 68/minute 16/minute 114/68 58.1 kg Cecilia Rushing, ELECTRIC RAZOR MECHANIC.[employer] 05/16/2024 9:06 AM Signed FOLLOW UP - PSYCHIATRIC PROGRESS NOTE PATIENT: Dillan Melo DATE: May 16, 2024 Visit Type:In person All information is from Patient report except when noted. This evaluation is NOT intended for forensic, disability or child custody purposes. CC: Presenting today for follow up regarding psychiatric medication management. HPI: Treatment Plan from Last Visit on 03/28/2024: Discontinue Prozac as patient has already stopped taking it due to weight gain related to it and improvement in anxiety when ADHD symptoms were treated with a stimulant. Discontinue Adderall due to lack of efficacy and struggles with duration of action of this medication to manage her symptoms in multiple setting. Start Vyvanse to address ADHD symptoms especially targeting her executive dysfunction. Start 40 mg and share update in a ARI message to assess if dose is adequate and the duration of action is supportive. Consider increasing the dose to 50 mg if needed. Will order monitoring lab work at the next appointment. Today Dillan shares that I am doing okay. Has adjustmented well to the Vyvanse. Notices it helping with her concentration and mood. Takes Vyvanse around 7 am and does not experience a crash like she did in energy with Adderall. Wishes that her forgetfulness would improve. Still struggles to prioritize at work. Works better if she is under pressure or has a lot of demands. Discussed gamifying some of her work related tasks. I wish that I had Vyvanse in my life a long time ago as it would have made a lot of things better". Discussed increasing Vyvanse to 50 mg. Denies any concerns with physical health. Able to keep up with the demands related to work even though work load has increased due to staffing shortage. Will need to order lab work next time for monitoring purposes. Interval Progress: Slightly improved PATIENT DATA: Generalized Anxiety Disorder Scale (JOHANN-7) 05/28/2023 06/18/2023 09/07/2023 JOHANN - 7 SCORES Score 16 5 1 (0-4) minimal anxiety, (5-9) mild anxiety, (10-14) moderate anxiety, (15-21) severe anxiety Patient Health Questionnaire (PHQ-9) 05/28/2023 06/18/2023 09/07/2023 PHQ-9 Score 4 2 0 (0-4) minimal depression, (5-9) mild depression, (10-14) moderate depression, (15-19) moderately severe depression, (20-27) severe depression PAST MEDICAL HISTORY Diagnosis Date Altered bowel function Anxiety state Diarrhea Oral contraceptive prescribed PAST SURGICAL HISTORY Procedure Laterality Date NONE ALLERGIES No Known Allergies Current Outpatient Medications on File Prior to Visit Medication Sig lisdexamfetamine (VYVANSE) 40 mg capsule Take 1 capsule by mouth once daily for 30 days. No current facility-administered medications on file prior to visit. ROS: See HPI PFSH: See HPI VITAL SIGNS: 05/16/24 0832 BP: 114/68 Pulse: 68 Resp: 16 Weight: 58.1 kg (128 lb) Last 3 Encounter BP Readings: Date: BP: 05/16/2024 114/68 03/28/2024 117/81 09/07/2023 116/74 MENTAL STATUS EXAMINATION: Appearance: Well dressed, well groomed Behavior: Behaves appropriately during the encounter Social relatedness: Euthymic Speech/Language: The patient demonstrates appropriate tone, prosody, silva, phonetics, and syntax Mood: euthymic Affect: Full and appropriate to topic Orientation: Person, Place, Time and Situation Associations: Intact and linear Hallucinations: None Delusions: None Suicidal Ideation: No suicidal ideation, intent or plan. Homicidal Ideation: No homicidal ideation, intent or plan. Insight: Appropriate Judgment: Appropriate DATA REVIEWED: Psychiatric scales, Electronic medical record, and The PDMP report was reviewed and found to be appropriate without any signs of misuse or diversion. DIAGNOSIS: Adhd (attention deficit hyperactivity disorder), inattentive type (primary encounter diagnosis) Johann (generalized anxiety disorder) GAF: -70-61 Some mild symptoms or some difficulty in social, occupational, or school functioning, but generally functioning pretty well. TREATMENT PLAN: Increase Vyvanse to 50 mg to address ADHD symptoms. If patient continues to struggle with executive dysfunction concerns, discuss engagement in neuro divergence IOP through [facility]. Order urine tox screen and CMP at the next appointment. Practice gamifying tasks to increase urgency to help you complete them on time. MEDICATION CHANGES: See above Risks and benefits of the medication, includ (more content not included)... Normal [facility] Internal Medicine Office Vis pamela 02-18-2024 Internal Medicine Office Visit [facility] [address] [place] [id number] OFFICE VISIT Date of Service: 02/21/24 MR#: [id number] Acct: [id number] Name: DILLAN MELO Rep #: [id number] : 1990 Provider: Dr. Karuna mcneil MD Age/Sex: 33/F Location: [facility] Status: Signed Intake Vital Signs 06/10/22 17:27 02/21/24 14:25 Height 5 ft 3 in 5 ft 3 in Weight: 125 lb BMI 22.1 BP 120/60 Blood Pressure Location Lt brachial Position Sitting Respiration 16 Pulse 93 Pulse Source Monitor Temp 97.6 F L Temp Source Temporal Pulse Oximetry (%) 99 Oxygen Delivery Method room air Intake Visit Reasons: EST NEW PT - PPWK SENT Chief Complaint: est care Farm Product Purchaser Required: No Accompanied by: Self Is patient in pain?: No Allergies No Known Allergies Allergy (Verified 02/21/24 14:22) Medications ???Medication ???Instructions ???Recorded ???Confirmed ???Type NK 02/21/24 02/21/24 History PFSH Medical History ADHD Surgical History (Updated 02/21/24 @ 14:[address] Karuna Mcdonald MD) No pertinent past surgical history Family History Grandmother Cancer breast Colon cancer Social History (Updated 02/21/24 @ 14:[address] 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 She hasn't had a PCP before. She is due for some routine blood work. She is due for a pap smear. She doesn't want any immunizations. She doesn't smoke and doesn't take any prescription medications. She reports she is eating healthy and staying somewhat active. The patient was diagnosed with ADHD about 1.5 years ago. She was seeing a counselor while going through a divorce and was told she may have it. She did see a psychiatrist a few months ago through [facility] who started her on Adderall. She reports she stopped it about 2 months ago as she wasn't sure that she needed it any longer. She states she has been struggling since stopping it reporting she didn't realize how much it helped her. She reports she is disorganized, overstimulated and has a difficult time focusing on things. She denies any current concerns about depression or anxiety nor any thoughts of suicide. The patient is interested in getting an IUD placed and would like to discuss with an OBGYN. She has no other questions or concerns at this time. Medications reviewed: Yes Dillan likes to exercises by roller skating. They watch their diet for sodium, low fat, and low cholesterol most of the time. List of current specialists seen: None End of life planning discussed including patient's advanced directive wishes: Discussed. Patient doesn't have one in place. I am willing to follow Dillan's advanced directives PHQ-2/Depression screen They in the past two weeks denies having felt down, depressed, hopeless or with little interest or pleasure in doing things. Hearing evaluation: Normal ROS Const Constitutional: No body ache, chills, excessive sweating, fatigue, fever(s), frequent falls, headache(s), snoring, weakness, weight change or change in appetite Eyes Eyes: No blurry vision, change in vision, eye pain or Light sensitivity ENT ENT: No abnormal hearing, ear or mastoid pain, tinnitus, nasal congestion, headache(s), neck pain or sore throat Resp Respiratory: No cough, shortness of breath, snoring or wheezing Cardio Cardiology: No chest pain at rest, chest pain with exertion, excessive sweating, dyspnea on exertion, lightheadedness, orthopnea, palpitations or other (no leg swelling) Gastro GI: No abdominal pain, change in bowel habits, constipation, cramping, diarrhea, nausea/dyspepsia or vomiting Genitourinary-Female: No difficulty urinating, burning urination, painful urination, urinary incontinence, urinary frequency or abnormal periods Musc Musculoskeletal: No abnormal gait, joint pain, back pain, limited range of motion, muscle weakness, neck pain, numbness or tingling Skin Skin: No dry skin, redness, lesions, itchy eyes, rash or wounds Neuro Neurology: No abnormal gait, abnormal hearing, dizziness, weakness, frequent falls, headache(s), memory loss, numbness, tingling or fainting Psych Psychiatric: No anxiety, No change in appetite, No depression (more content not included)... Normal [facility] ECG COMPLETEon 2022 Atrial Rate 80 BPM [facility] Calculated P [place] 71 degrees [facility] Calculated R [place] 55 degrees [facility] Calculated T [place] 31 degrees [facility] P-R Interval 130 ms [facility] QRS Duration 80 ms [facility] QT Interval 362 ms [facility] QTC Calculation (Bazett) 412 ms [facility] Ventricular Rate 78 BPM [facility] [place] 06-12-2022 JORGE LUIS Telephone (VLADIMIR) DILLAN MELO ([id number]) 1990 F Date Time Provider Department 06/12/22 KENDRA GUZMAN During your visit today, we recorded the following information about you: Beth Camacho MA 06/12/2022 8:23 AM Signed ----- Message from Kendra Guzman APRN.[employer] sent at 06/11/2022 5:00 PM EDT ----- Antibiotic is appropriate for her infection Beth Camacho MA 06/12/2022 8:24 AM Signed Left message informing patient, phone number to reach the office was left for any questions or concerns. Beth Camacho MA Allergies As of Date: 06/12/2022 (No Known Allergies) Date Reviewed: 06/09/2022 Reviewed by: Kendra Guzman APRN.[employer] - Fully Assessed Reason for Visit: Results [95] Prescriptions as of 06/12/2022 - nitrofurantoin monohydrate and macrocrystal (MACROBID) 100 mg capsule Take 1 capsule by mouth twice daily for 5 days. Problem List As Of Date 06/12/2022 Noted Resolved Anxiety state [F41.1] Oral contraceptive prescribed [Z30.011] Encounter Status:Closed by BETH CAMACHO on 06/12/22 Normal [facility] Absolute lymphocyte counton 06-10-2022 Lymphocytes Auto (Unsp spec) [#/Vol] 1.86 10*3/uL 0.83-4.51 [facility] Work Phone: Basophil percentageon 2021 Basophil percentage 0 SEEN /hpf 0-5 [facility] Work Phone: Basophils/100 WBC (Bld) 0.6 % 0-1 [facility] Work Phone: Chloride [Moles/Vol] 107 mmol/L 98-107 [facility] Work Phone: Eosinophils/100 WBC (Bld) 0.8 % 0-5 [facility] Work Phone: Glucose [Mass/Vol] 89 mg/dL 74-106 [facility] Work Phone: Neutrophils (Bld) [#/Vol] 5.8 10*3/uL 2.0-7.7 [facility] Work Phone: Neutrophils/100 WBC (Bld) 67.6 % 47-70 [facility] Work Phone: Potassium [Moles/Vol] 3.6 mmol/L 3.5-5.1 [facility] Work Phone: Sodium [Moles/Vol] 139 mmol/L 136-145 [place] [facility] Work Phone: WBC (Bld) [#/Vol] 8.6 10*3/uL 4.4-11.0 [place] [facility] Work Phone: Beta hCG serum qualon 2021 Beta HCG ( test) Ql Negative [facility] Work Phone: Bilirubin Test strip Ql (U)o n 06-10-2022 Bilirubin Ql (U) Negative Negative [facility] Work Phone: Blood erythrocytes count (nu mber/volume)on 06-10-2022 RBC (Bld) [#/Vol] 4.28 10*6/uL 4.2-5.4 [facility]: Blood hemoglobin measurement (mass/volume)on 06-10-2022 Hemoglobin (Bld) [Mass/Vol] 13.9 g/dL 12.0-15.0 [facility] Work Phone: Blood lymphocytes/100 leukoc yteson 06-10-2022 Lymphocytes/100 WBC (Bld) 21.6 % 19-41 [facility] Work Phone: Blood monocytes/100 leukocyt eson 06-10-2022 Monocytes/100 WBC (Bld) 8.9 % 0-10 [facility] Work Phone: Blood platelet mean volumeon 06-10-2022 Platelet mean volume (Bld) [Entitic vol] 9.7 fL 6.2-12.0 [facility] Work Phone: Determination of erythrocyte mean corpuscular volume (MCV)on 06-10-2022 MCV (RBC) [Entitic vol] 94.6 fL 81-99 [facility] Work Phone: Hematocrit Auto (Bld) [Volum e fraction]on 06-10-2022 Hematocrit (Bld) [Volume fraction] 40.5 % 37-47 [facility] Work Phone: Ketones Test strip Ql (U)on 06-10-2022 Ketones Ql (U) Negative Negative [facility] Work Phone: Laboratory - Chemistry and C hemistry - challengeon 06-10-2022 CO2 [Moles/Vol] 25.0 mmol/L 21.0-32.0 [facility] Work Phone: Urea nitrogen/Creatinine [Mass ratio] 8.5 mg/mg - [facility] Work Phone: Laboratory - Hematology and Cell countson 06-10-2022 Erythrocyte distribution width (RBC) [Entitic vol] 44.1 fL 35.1-43.9 [facility] Work Phone: Erythrocyte distribution width (RBC) [Ratio] 12.7 % 11.6-14.6 [facility] Work Phone: Immature granulocytes/100 WBC (Bld) 0.500 % 0.0-0.9 [facility] Work Phone: Comment on above: IG% - Immature Granu locytes (promyelocytes, myelocytes and metamyelocytes) > 1% indicates that a LEFT SHIFT is Present. MCH (RBC) [Entitic mass] 32.5 pg 27.0-32.0 [facility] Work Phone: Nucleated RBC/100 WBC (Bld) [Ratio] 0 % 0-5 [facility] Work Phone: MCHC Auto (RBC) [Mass/Vol]on 06-10-2022 MCHC (RBC) [Mass/Vol] 34.3 g/dL 32-36 [facility] Work Phone: Mucus LM Ql (Urine sed)on Mucus Ql (Urine sed) 0 SEEN /hpf [facility] Work Phone: Nitrite Test strip Ql (U)on 06-10-2022 Nitrite Ql (U) Negative Negative [facility] Work Phone: No Panel Informationon 06-10 Estimated Creatinine Clearance Calc 80.23 ml/min [facility] Work Phone: Estimated GFR (MDRD) Amer 103 mL/min >60 [facility] Work Phone: Comment on above: GFR Calc Estimated GFR (MDRD) Non-Af Amer 85 mL/min >60 [facility] Work Phone: Comment on above: Non- GFR Calc Platelets bldon 06-10-2022 Platelets (Bld) [#/Vol] 280 10*3/uL 150-450 [facility] Work Phone: Protein Test strip Ql (U)on 06-10-2022 Protein Ql (U) Negative Negative [facility] Work Phone: Serum or plasma calcium erika urement (mass/volume)on 06-10-2022 Calcium [Mass/Vol] 9.8 mg/dL 8.5-10.1 [facility] Work Phone: Serum or plasma creatinine m easurement (mass/volume)on 06-10-2022 Creatinine [Mass/Vol] 0.82 mg/dL 0.55-1.02 [facility] Work Phone: Comment on above: The validity of the calculated GFR & GFRAA in patients over 70 years has not been determined. Clinical correlation is essential. Serum or plasma urea nitroge n measurement (mass/volume)on 06-10-2022 Urea nitrogen [Mass/Vol] 7 mg/dL 7-18 [facility] Work Phone: Squamous epithelial cells de tection in urine sediment by light microscopyon 06-10-2022 Epithelial cells.squamous LM Ql (Urine sed) 0-5 SEEN /hpf 5-10 [facility] Work Phone: Thin prep Papanicolaou smear with manual screeningon 06-10-2022 Thin prep Papanicolaou smear with manual screening 7 5-15 [facility] Work Phone: Urine blood detectionon 05-23 RBC Ql (U) Negative Negative [facility] Work Phone: RBC Ql (U) 0 SEEN /hpf 0-5 [facility] Work Phone: Urine clarityon 06-10-2022 Clarity (U) Clear Clear [facility] Work Phone: Urine color determinationon 06-10-2022 Color (U) Straw Yellow [facility] Work Phone: Urine glucose detectionon Glucose Ql (U) Normal mg/dl Normal [facility] Work Phone: Urine leukocyte esterase det ection by dipstickon 06-10-2022 Leukocyte esterase Test strip Ql (U) Negative Negative [facility] Work Phone: Urine pHon 06-10-2022 pH (U) 8.0 [pH] 5.0 - 8.0 [facility] Work Phone: Urine sediment bacteria coun t by microscopy (number/high power field)on 06-10-2022 Bacteria LM.HPF (Urine sed) [#/Area] RARE /hpf None Seen [facility] Work Phone: Urine specific gravity measu rementon 06-10-2022 Specific gravity (U) [Rel density] 1.010 1.002-1.030 [facility] Work Phone: Urobilinogen Auto test strip Ql (U)on 06-10-2022 Urobilinogen Ql (U) Normal mg/dl Normal [facility] Work Phone: Bacteria Ur Culton 2 Bacteria identified Cx Nom (U) ORGANISM ID: 1 10,000 -<50,000 CFU/ml Staphylococcus saprophyticus Routine susceptibility testing of S. saprophyticus urine isolates is not performed because uncomplicated UTIs respond to urine concentrations of agents commonly used (e.g. Nitrofurantoin, TMP/SMX, or a quinolone). Normal [facility] Comment on above: Performed By: #### 6 30-4 #### [facility] CLIA [id number] [address] [facility] CNOVon 06-09-2022 CNOV Office Visit (AGINTMLW) DILLAN MELO ([id number]) 1990 F Date Time Provider Department 06/09/22 7:20 AM KENDRA GUZMAN AGINTMLW During your visit today, we recorded the following information about you: Temperature Pulse Respiration Blood pressure 98.2 degrees 82/minute 18/minute 110/70 Weight Height 53.1 kg 1.575 m Kendra Guzman APRN.[employer] 06/09/2022 8:11 AM Signed This note was created using [employer]. Subjective Dillan Melo is a 31 year old female here to discuss medications for depression and anxiety. Pt is new to me. She is in counseling. She feels she is in need for ADHD medication. She reports she was told to see her doctor about medication for ADHD by her counselor. Reports she was told she had PTSD and she should look into being treated for ADHD. She reports some anxiety but feels a lot on her symptoms are related to inability to concentrate. She currently is not taking anything for this. Also concerns she has been fighting a UTI. Reports her symptoms started last week with blood in in her urine, and burning when she urinates. She has been drinking cranberry juice and baking soda water. ALLERGIES No Known Allergies Current Outpatient Medications Medication Sig Dispense Refill busPIRone (BUSPAR) 10 mg tablet Take 1 tablet by mouth three times daily. 90 tablet 1 sertraline (ZOLOFT) 100 mg tablet Take 1 tablet by mouth once daily. 30 tablet 5 PREVIFEM 0.25-35 mg-mcg per tablet Take 1 tablet by mouth once daily. 1 Package 11 No current facility-administered medications for this visit. ACTIVE PROBLEM LIST Anxiety State Oral Contraceptive Prescribed PAST MEDICAL HISTORY Diagnosis Date Altered bowel function Anxiety state Diarrhea Oral contraceptive prescribed PAST SURGICAL HISTORY Procedure Laterality Date NONE Social History Tobacco Use Smoking status: Never Smokeless tobacco: Never Substance Use Topics Alcohol use: Yes Comment: Type: wine; Comments: Occasionally Drug use: No Family History Problem Relation Age of Onset Breast Cancer Maternal Grandmother Colon Cancer Maternal Grandmother 60's other (Cancer - other:) Maternal Grandmother other (Colorectal cancer) Maternal Grandmother Review of Systems Constitutional: Negative for activity change, appetite change, chills, diaphoresis, fatigue, fever and unexpected weight change. Respiratory: Negative for cough, shortness of breath and wheezing. Cardiovascular: Negative for chest pain, palpitations and leg swelling. Neurological: Negative for dizziness and headaches. Psychiatric/Behaviora l: Positive for decreased concentration. Negative for confusion, dysphoric mood and sleep disturbance. The patient is nervous/anxious. Objective 06/09/22 0725 BP: 110/70 BP Site: Right Arm BP Position: Sitting BP Cuff Size: Regular Adult Pulse: 82 Resp: 18 Temp: 36.8 ?C (98.2 ?F) TempSrc: Oral SpO2: 99% Weight: 53.1 kg (117 lb) Height: 157.5 cm (5' 2") Physical Exam Vitals and nursing note reviewed. Constitutional: Appearance: Normal appearance. Cardiovascular: Rate and Rhythm: Normal rate and regular rhythm. Pulses: Normal pulses. Heart sounds: Normal heart sounds. Pulmonary: Effort: Pulmonary effort is normal. No respiratory distress. Breath sounds: Normal breath sounds. No wheezing, rhonchi or rales. Abdominal: General: Abdomen is flat. Palpations: Abdomen is soft. Tenderness: There is no abdominal tenderness. There is no right CVA tenderness or left CVA tenderness. Neurological: Mental Status: She is alert and oriented to person, place, and time. Psychiatric: Mood and Affect: Mood normal. Behavior: Behavior normal. Thought Content: Thought content normal. Judgment: Judgment normal. Office Visit on 06/09/2022 Component Date Value Ref Range Status GLUCOSE UA (POCT) 06/09/2022 Negative Negative mg/dL Final BILIRUBIN UA (POCT) 06/09/2022 Negative Negative Final KETONE UA (POCT) 06/09/2022 Negative Negative mg/dL Final SPECIFIC GRAVITY UA (POCT) 06/09/2022 1.015 1.005 - 1.030 Final HEMOGLOBIN/BLOOD UA (POCT) 06/09/2022 Trace-intact (A) Negative Final PH UA (POCT) 06/09/2022 8.5 (A) 4.5 - 8.0 Final PROTEIN UA (POCT) 06/09/2022 Negative Negative mg/dL Final UROBILINOGEN UA (POCT) 06/09/2022 0.2 Normal E.U./dL Final NITRITE UA (POCT) 06/09/2022 Negative Negative Final LEUKOCYTES UA (POCT) 06/09/2022 Small (A) Negative Final COLOR UA (POCT) 06/09/2022 Yellow Final CLARITY UA (POCT) 06/09/2022 Cloudy Final Negative HCG today. ASSESSMENT/PLAN: 1. Anxiety state - ICD9: 300.00, ICD10: F41.1 (primary diagnosis) - pt with hx of anxiety. Counselor recommended treatement for posssible ADHD. I reviewed with pt that I do not dx or treat ADHD. I will refer to psychiatry for evaluation and management. She verbalized understanding. - support p (more content not included)... Normal [facility] UA DIP, URINE (POC)on 2021 BILIRUBIN UA (POCT) Negative Negative [facility] CLARITY UA (POCT) Cloudy [facility] COLOR UA (POCT) Yellow [facility] GLUCOSE UA (POCT) Negative Negative mg/dL [facility] HEMOGLOBIN/BLOOD UA (POCT) Trace-intact Abnormal Negative [facility] KETONE UA (POCT) Negative Negative mg/dL [facility] LEUKOCYTES UA (POCT) Small Abnormal Negative [facility] NITRITE UA (POCT) Negative Negative [facility] PH UA (POCT) 8.5 Abnormal 4.5 - 8.0 [facility] Protein Ql (U) Negative Negative mg/dL [facility] SPECIFIC GRAVITY UA (POCT) 1.015 1.005 - 1.030 [facility] UROBILINOGEN UA (POCT) 0.2 E.U./dL Normal E.U./dL [facility] Otheron 06-05-2016 CONVERTED ELECTRONIC SIGNATURE MARISABEL GORDILLO CT(ASCP) (Electronic signature on file) Final Signed Out: 06/05/2016 15:17 [facility] CONVERTED FINAL DIAGNOSIS Relevant History: LMP: 05/27/2016 SPECIMEN ADEQUACY SATISFACTORY FOR EVALUATION. ENDOCERVICAL/TRANSFOR MATION ZONE COMPONENTS PRESENT. INTERPRETATION/RESULT NEGATIVE FOR INTRAEPITHELIAL LESION OR MALIGNANCY. [facility] CONVERTED GROSS DESCRIPTION SPECIMEN: TP CX REFLEX TO HPV ASCUS/TARIK [facility] CONVERTED ORDERING PROVIDER Ordering Provider: KENDRA GUZMAN [facility] CONVERTED PAP DISCLAIMER The Pap test serves as a screening tool for early detection of cervical cancer. The Pap test does not represent a final diagnostic test for cervical cancer. Furthermore, the Pap test was not designed to screen for other malignancies (endometrial, ovarian cancer, etc....). False negatives and false positives have occurred. If clinically indicated, further patient evaluation is recommended. [facility] Vital Signs Date Time Vital Sign Value Performing Clinician Maria Ines monahan 04-03-2025 14:41-0400 Body mass index (BMI) [Ratio] 21.68 kg/m2 Cecilia Rushing APRN.[employer] Work Phone: [facility] 04-03-2025 14:41-0400 Body weight 55.52 kg Cecilia Rushing APRN.[employer] Work Phone: [facility] 04-03-2025 14:41-0400 Diastolic blood pressure 72 mm[Hg] Cecilia Rushing APRN.[employer] Work Phone: [facility] 04-03-2025 14:41-0400 Heart rate 88 /min Cecilia Rushing APRN.[employer] Work Phone: [facility] 04-03-2025 14:41-0400 Respiratory rate 16 /min Cecilia Rushing APRN.[employer] Work Phone: [facility] 04-03-2025 14:41-0400 SaO2% (BldA) [Mass fraction] 99 % Cecilia Rushing APRN.[employer] Work Phone: [facility] 04-03-2025 14:41-0400 Systolic blood pressure 110 mm[Hg] Cecilia Rushing APRN.[employer] Work Phone: [facility] 09-05-2024 13:57-0500 Body mass index (BMI) [Ratio] 22.43 kg/m2 Cecilia Rajguru [employer]LECTRIC [employer]ZOR MECHANIC.[employer] Work Phone: [facility] 09-05-2024 13:57-0500 Body weight 57.42 kg Cecilia Rajguru [employer] MECH[employer]IC.[employer] Work Phone: [facility] 09-05-2024 13:57-0500 Diastolic blood pressure 76 mm[Hg] Cecilia Rajguru [employer] MECH[employer]IC.[employer] Work Phone: [facility] 09-05-2024 13:57-0500 Heart rate 72 /min Cecilia Rajguru [employer] MECH[employer]IC.[employer] Work Phone: [facility] 09-05-2024 13:57-0500 Respiratory rate 16 /min Cecilia Rajguru [employer]LECT[employer]IC [employer] MECH[employer]IC.[employer] Work Phone: [facility] 09-05-2024 13:57-0500 Systolic blood pressure 122 mm[Hg] Cecilia Rajguru [employer]LECTRIC [employer] MECH[employer]IC.[employer] Work Phone: [facility] 05-16-2024 08:32-0400 Body mass index (BMI) [Ratio] 22.67 kg/m2 Cecilia Rajguru [employer] MECH[employer]IC.[employer] Work Phone: [facility] 05-16-2024 08:32-0400 Body weight 58.06 kg Cecilia Rajguru [employer]LECT[employer]IC [employer] MECH[employer]IC.[employer] Work Phone: [facility] 05-16-2024 08:32-0400 Diastolic blood pressure 68 mm[Hg] Cecilia Rajguru [employer]LECT[employer]IC [employer] MECHANIC.[employer] Work Phone: [facility] 05-16-2024 08:32-0400 Heart rate 68 /min Cecilia Rajguru [employer]LECT[employer]IC [employer] MECH[employer]IC.[employer] Work Phone: [facility] 05-16-2024 08:32-0400 Respiratory rate 16 /min Cecilia Rajguru ELECTRIC [employer] MECH[employer]IC.[employer] Work Phone: [facility] 05-16-2024 08:32-0400 Systolic blood pressure 114 mm[Hg] Cecilia Rajguru [employer]LECTRIC [employer] MECH[employer]IC.[employer] Work Phone: [facility] 03-28-2024 08:30-0400 Body mass index (BMI) [Ratio] 22.96 kg/m2 Cecilia Rajguru [employer]LECTRIC [employer] MECH[employer]IC.[employer] Work Phone: [facility] 03-28-2024 08:30-0400 Body weight 58.8 kg Cecilia Rajguru ELECTRIC [employer] MECH[employer]IC.[employer] Work Phone: [facility] 03-28-2024 08:30-0400 Diastolic blood pressure 81 mm[Hg] Cecilia Rajguru ELECTRIC [employer] MECH[employer]IC.[employer] Work Phone: [facility] 03-28-2024 08:30-0400 Heart rate 94 /min Cecilia Rajguru ELECTRIC [employer] MECH[employer]IC.[employer] Work Phone: [facility] 03-28-2024 08:30-0400 Respiratory rate 14 /min Cecilia Rajguru [employer]LECT[employer]IC [employer] MECH[employer]IC.[employer] Work Phone: [facility] 03-28-2024 08:30-0400 Systolic blood pressure 117 mm[Hg] Cecilia Rajguru ELECTRIC [employer] MECHANIC.[employer] Work Phone: [facility] 11-25-2022 14:24-0400 Body weight 51.26 kg Cecilia Rajguru ELECTRIC [employer] MECH[employer]IC.[employer] Work Phone: [facility] 11-25-2022 14:24-0400 Diastolic blood pressure 66 mm[Hg] Cecilia Rajguru ELECT[employer]IC [employer] MECH[employer]IC.[employer] Work Phone: [facility] 11-25-2022 14:24-0400 Heart rate 80 /min Cecilia Rajguru [employer]LECT[employer]IC [employer] MECH[employer]IC.[employer] Work Phone: [facility] 11-25-2022 14:24-0400 Systolic blood pressure 124 mm[Hg] Cecilia Rajguru E[employer] MECH[employer]IC.[employer] Work Phone: [facility] 10-21-2022 09:35-0500 Body weight 52.62 kg Cecilia Rajguru ELECTRIC [employer] MECHANIC.[employer] Work Phone: [facility] 10-21-2022 09:35-0500 Diastolic blood pressure 58 mm[Hg] Cecilia Rajguru ELECTRIC [employer] MECH[employer]IC.[employer] Work Phone: [facility] 10-21-2022 09:35-0500 Heart rate 88 /min Cecilia Rajguru ELECTRIC [employer]OR MECHANIC.[employer] Work Phone: [facility] 10-21-2022 09:35-0500 Systolic blood pressure 104 mm[Hg] Cecilia Rajguru ELECTRIC [employer] MECHANIC.[employer] Work Phone: [facility] 2022 09:17-0500 Body weight 53.52 kg Cecilia Rajguru ELECTRIC [employer] MECH[employer]IC.[employer] Work Phone: [facility] 2022 09:17-0500 Diastolic blood pressure 54 mm[Hg] Cecilia Rajguru ELECTRIC [employer] MECH[employer]IC.[employer] Work Phone: [facility] 2022 09:17-0500 Heart rate 78 /min Cecilia Rajguru ELECTRIC [employer] MECH[employer]IC.[employer] Work Phone: [facility] 2022 09:17-0500 Systolic blood pressure 118 mm[Hg] Cecilia Rajguru ELECTRIC [employer] MECHANIC.[employer] Work Phone: [facility] 08-26-2022 09:15-0500 Body weight 52.62 kg Cecilia Rajguru ELECTRIC [employer] MECH[employer]IC.[employer] Work Phone: [facility] 08-26-2022 09:15-0500 Diastolic blood pressure 62 mm[Hg] Cecilia Rajguru [employer] MECH[employer]IC.[employer] Work Phone: [facility] 08-26-2022 09:15-0500 Heart rate 84 /min Cecilia Rajguru [employer] MECH[employer]IC.[employer] Work Phone: [facility] 08-26-2022 09:15-0500 Systolic blood pressure 102 mm[Hg] Cecilia Rajguru [employer] MECH[employer]IC.[employer] Work Phone: [facility] 07-22-2022 08:40-0500 Body height 160 cm Cecilia Rajguru [employer] MECH[employer]IC.[employer] Work Phone: [facility] 07-22-2022 08:40-0500 Body weight 53.07 kg Cecilia Rajguru E[employer] MECH[employer]IC.[employer] Work Phone: [facility] 07-22-2022 08:40-0500 Diastolic blood pressure 70 mm[Hg] Cecilia Rushing E[employer]RIC [employer] MECH[employer]IC.[employer] Work Phone: [facility] 07-22-2022 08:40-0500 Heart rate 84 /min Cecilia Rushing E[employer]RIC [employer] MECH[employer]IC.[employer] Work Phone: [facility] 07-22-2022 08:40-0500 Systolic blood pressure 126 mm[Hg] Cecilia Rushing [employer]IC [employer] MECH[employer]IC.[employer] Work Phone: [facility] 06-10-2022 20:34-0400 Body temperature 98.2 [degF] [facility] Work Phone: 06-10-2022 20:34-0400 Diastolic blood pressure 75 mm[Hg] [facility] Work Phone: 06-10-2022 20:34-0400 Heart rate 67 /min [facility] Work Phone: 06-10-2022 20:34-0400 Respiratory rate 18 /min [facility] Work Phone: 06-10-2022 20:34-0400 SaO2% (BldA) [Mass fraction] 98 % [facility] Work Phone: 06-10-2022 20:34-0400 Systolic blood pressure 106 mm[Hg] [facility] Work Phone: 06-10-2022 17:27-0400 Body height 160.02 cm [facility] Work Phone: 06-10-2022 17:27-0400 Body mass index (BMI) [Ratio] 20.1 kg/m2 [facility] Work Phone: 06-10-2022 17:27-0400 Body weight 51.6 kg [facility] Work Phone: 06-09-2022 07:25-0400 Body height 157.5 cm Kendra Guzman [employer] ME[employer]IC.[employer] Work Phone: [facility] 06-09-2022 07:25-0400 Body temperature 98.2 [degF] Kendra Ian [employer] MECH[employer]IC.[employer] Work Phone: [facility] 06-09-2022 07:25-0400 Body weight 53.07 kg Kendra Guzman [employer] MECH[employer]IC.[employer] Work Phone: [facility] 06-09-2022 07:25-0400 Diastolic blood pressure 70 mm[Hg] Kendra Ian [employer] MECH[employer]IC.[employer] Work Phone: [facility] 06-09-2022 07:25-0400 Heart rate 82 /min Kendra Ian [employer] MECH[employer]IC.[employer] Work Phone: [facility] 06-09-2022 07:25-0400 Respiratory rate 18 /min Kendra Guzman [employer] MECH[employer]IC.[employer] Work Phone: [facility] 06-09-2022 07:25-0400 SaO2% (BldA) [Mass fraction] 99 % Kendra Guzman [employer] MECH[employer]IC.[employer] Work Phone: [facility] 06-09-2022 07:25-0400 Systolic blood pressure 110 mm[Hg] Kendra Sebastianel [employer] MECH[employer]IC.[employer] Work Phone: [facility] Encounters Encounter Date Encounter Type Care Provider Facility Start: 04-03-2025 End: 04-09-2025 Office outpatient visit 25 minutes Cecilia Rushing [employer] Work Phone: Psychiatry Comment on above: ADHD (attention defi cit hyperactivity disorder), inattentive type (Primary Dx); JOHANN (generalized anxiety disorder); Psychosocial stressors; Encounter for long-term (current) use of medications Start: 04-03-2025 End: 04-03-2025 ambulatory CECILIA RUSHING Facility:[facility] Start: 03-26-2025 End: 03-26-2025 Refill Cecilia Rushing APRN.CRISTIAN Work Phone: Psychiatry Comment on above: Refill Request Start: 02-20-2025 End: 02-20-2025 Refill Cecilia Rushing APRN.[employer] Work Phone: Psychiatry Comment on above: Refill Request Start: 02-15-2025 End: 02-19-2025 ambulatory Cecilia Rushing APRN.[employer] Work Phone: Psychiatry Start: 02-15-2025 End: 02-19-2025 Patient encounter procedure Cecilia Rushing APRN.[employer] Work Phone: Psychiatry Comment on above: Appointment change a nd meds renewal Start: 01-25-2025 End: 01-31-2025 E-mail encounter from caregiver Cecilia Rushing APRN.[employer] Work Phone: Psychiatry Start: 01-25-2025 End: 01-31-2025 Patient encounter procedure Cecilia Rushing APRN.[employer] Work Phone: Psychiatry Comment on above: Appointment on cancelled and rescheduled Start: 01-16-2025 End: 01-16-2025 Refill Cecilia Rushing APRN.[employer] Work Phone: Psychiatry Comment on above: Refill Request Start: 12-16-2024 End: 12-16-2024 ambulatory CECILIA RUSHING Facility:[facility] Start: 12-12-2024 End: 12-12-2024 ambulatory Cecilia Rushing APRN.[employer] Work Phone: Psychiatry Comment on above: Cancelled meds? Start: 12-11-2024 End: 12-11-2024 ambulatory Cecilia Rushing APRN.[employer] Work Phone: Psychiatry Comment on above: Meds and lab work Start: 12-08-2024 End: 12-08-2024 Telephone encounter Cecilia Rushing APRN.[employer] Work Phone: Psychiatry Start: 09-05-2024 End: 09-05-2024 Office outpatient visit 25 minutes Cecilia Rushing APRN.[employer] Work Phone: Psychiatry Comment on above: ADHD (attention defi cit hyperactivity disorder), inattentive type (Primary Dx); Encounter for long-term (current) use of medications; JOHANN (generalized anxiety disorder); Psychosocial stressors Start: 09-05-2024 End: 09-05-2024 ambulatory CECILIA RUSHING Facility:[facility] Start: 07-27-2024 End: 07-27-2024 ambulatory Cecilia Rushing [employer] MECH[employer]IC.[employer] Work Phone: Psychiatry Comment on above: Appt and meds Start: 06-15-2024 End: 06-15-2024 Refill Cecilia Rushing [employer] MECH[employer]IC.[employer] Work Phone: Psychiatry Comment on above: Refill Request Start: 05-16-2024 End: 05-16-2024 ambulatory CECILIA RUSHING Facility:[facility] Start: 05-16-2024 End: 05-16-2024 Patient encounter procedure Cecilia Rushing [employer] MECH[employer]IC.[employer] Work Phone: Psychiatry Comment on above: ADHD (attention defi cit hyperactivity disorder), inattentive type (Primary Dx); JOHANN (generalized anxiety disorder) Start: 05-01-2024 End: 05-01-2024 Refill Cecilia Rushing [employer] MECH[employer]IC.[employer] Work Phone: Psychiatry Comment on above: Refill Request Start: 03-28-2024 ambulatory Cecilia Dover u ELECTRIC RA[employer]OR MECH[employer]IC.[employer] Work Phone: Psychiatry Comment on above: Insurance Start: 03-28-2024 End: 03-28-2024 Patient encounter procedure Cecilia Rushing ELECTRIC [employer]OR MECHANIC.[employer] Work Phone: Psychiatry Comment on above: ADHD (attention defi cit hyperactivity disorder), inattentive type (Primary Dx); JOHANN (generalized anxiety disorder); Weight gain due to medication Start: 02-21-2024 Encounter for genera l adult medical examination without abnormal findings [facility] Start: 02-21-2024 End: 02-21-2024 ambulatory Cecilia Rushing ELECT[employer]IC [employer]OR MECH[employer]IC.[employer] Work Phone: Psychiatry Start: 02-21-2024 Patient encounter procedure Cecilia Rushing [employer]RIC [employer] MECH[employer]IC.[employer] Work Phone: Psychiatry Comment on above: Missed appointments Start: 12-24-2023 ambulatory Cecilia garsia [employer] MECH[employer]IC.[employer] Work Phone: Psychiatry Comment on above: Adderall and prozac Start: 11-16-2023 End: 11-16-2023 Patient encounter procedure Cecilia Rushing [employer]OR MECH[employer]IC.[employer] Work Phone: Psychiatry Comment on above: NO SHOW (Primary Dx) Start: 11-12-2023 ambulatory Cecilia garsia [employer] MECH[employer]IC.[employer] Work Phone: Psychiatry Comment on above: Meds Start: 10-13-2023 Refill Cecilia garsia [employer] MECH[employer]IC.[employer] Work Phone: Psychiatry Comment on above: Refill Request Start: 06-18-2023 End: 06-18-2023 [facility] Cecilia Rushing ELECTRIC RA[employer]OR MECHANIC.[employer] Work Phone: Psychiatry Comment on above: ADHD (attention defi cit hyperactivity disorder), inattentive type (Primary Dx); JOHANN (generalized anxiety disorder) Start: 05-17-2023 ambulatory Cecilia garsia [employer]IC [employer] MECH[employer]IC.[employer] Work Phone: Psychiatry Comment on above: Antidepressant withd pradip Start: 11-25-2022 End: 11-25-2022 Patient encounter procedure Cecilia Rushing [employer]IC [employer] MECH[employer]IC.[employer] Work Phone: Psychiatry Comment on above: JOHANN (generalized anx iety disorder) (Primary Dx); ADHD (attention deficit hyperactivity disorder), inattentive type Start: 10-21-2022 End: 10-21-2022 Patient encounter procedure Cecilia Rushing [employer] Work Phone: Psychiatry Comment on above: JOHANN (generalized anx iety disorder) (Primary Dx); ADHD (attention deficit hyperactivity disorder), inattentive type Start: 2022 End: 2022 Patient encounter procedure Ceciila Rushing [employer] MECH[employer] Work Phone: Psychiatry Comment on above: Encounter for therap eutic drug level monitoring (Primary Dx); ADHD (attention deficit hyperactivity disorder), inattentive type; JOHANN (generalized anxiety disorder) Start: 08-26-2022 End: 08-26-2022 Patient encounter procedure Cecilia Rushing APRN.CNP Work Phone: Psychiatry Comment on above: JOHANN (generalized anx iety disorder) (Primary Dx) Start: 07-22-2022 End: 07-22-2022 Patient encounter procedure Cecilia Rushing APRN.CNP Work Phone: Psychiatry Comment on above: JOHANN (generalized anx iety disorder) (Primary Dx); Encounter for therapeutic drug level monitoring Start: 06-12-2022 Telephone encounter Kendra Guzman APRN.CNP Work Phone: [facility] Comment on above: Results Start: 06-10-2022 End: 06-10-2022 Emergency department patient visit [facility] Start: 06-09-2022 Telephone encounter Cecilia wheeler APRN.INSTRUCTOR [employer] Work Phone: Psychiatry Comment on above: Referral Information Start: 06-09-2022 End: 06-09-2022 ambulatory KENDRA GUZMAN Facility:[facility] Start: 06-09-2022 End: 06-09-2022 Patient encounter procedure Kendra Guzman APRN.CNP Work Phone: [facility] Comment on above: Anxiety state (Prima ry Dx); Dysuria Start: 06-01-2016 End: 06-01-2016 Patient encounter procedure Kendra Adorno (Alice Foster) Ian Work Phone: [facility] Start: 06-01-2016 Results Only Kendra Adorno (Ap azalia Foster) Ian Work Phone: [facility] Procedures Date Procedure Procedure Detail Performing Clinician Start: 06-10-2022 CT of abdomen and pelvis without contrast Start: 06-09-2022 Urnls dip stick/tablet rgnt auto w/o microscopy Kendra Guzman APRN.CNP Work Phone: Start: 06-01-2016 CONVERTED CYTOLOGY GREY STOCK RECORDER Kendra Adorno (Alice Foster) Ian Work Phone: Oral contraceptive prescribed Oral contraceptive prescribed Kendra Guzman APRN.CNP Work Phone: Plan of Treatment Date Care Activity Detail Author Start: 09-25-2025 End: 09-25-2025 Patient encounter procedure 09/25/2025 4:30 PM EST Office Visit Psychiatry [address] [facility] [place] [id number] Cecilia Rushing, ELECT[employer]OR MECHANIC.[employer] [address] [facility] [place] [place] [address] Psychiatry Start: 04-23-2025 Influenza vaccination [facility] Start: 04-03-2025 End: 04-03-2025 Patient encounter procedure 04/03/2025 2:30 PM EDT Office Visit Psychiatry [address] [facility] [place] [address] Cecilia Rushing, ELECT[employer] RAZOR MECHANIC.[employer] [address] [place] [address] reschedule follow up Psychiatry Comment on above: reschedule follow up Start: 03-13-2025 End: 03-13-2025 Patient encounter procedure 03/13/2025 11:00 AM EDT Office [facility] [address] [facility] [place] [address] Cecilia Rushing, ELECTR[employer] RA[employer]OR MECHANIC.[employer] [address] [place] [address] Follow up with EKG Psychiatry Comment on above: Follow up with EKG Start: 01-30-2025 End: 01-30-2025 Patient encounter procedure Psychiatry Comment on above: Follow up Follow up with EKG Start: 09-05-2024 End: 12-05-2024 Comprehensive metabolic 2000 panel - Serum or Plasma COMPREHENSIVE METABOLIC PANEL Lab Routine Encounter for long-term (current) use of medications Expected: 09/05/2024, Expires: 12/05/2024 [facility] Comment on above: Expected: 09/05/2024 , Expires: 12/05/2024 Start: 09-05-2024 End: 09-05-2024 Patient encounter procedure 09/05/2024 2:00 PM EST Office Visit Psychiatry [address] [place] [address] Cecilia Rushing, [employer]LECTR[employer]ZOR MECHANIC.[employer] [address] [place] [address] Provider Ordered Follow up Psychiatry Comment on above: Provider Ordered Fol low up Start: 09-05-2024 End: 12-05-2024 TOXICOLOGY SCREEN, ROUTINE URINE TOXICOLOGY SCREEN, ROUTINE URINE Lab Routine Encounter for long-term (current) use of medications Expected: 09/05/2024, Expires: 12/05/2024 [facility] Work Phone: Comment on above: Expected: 09/05/2024 , Expires: 12/05/2024 Start: 05-16-2024 End: 05-16-2024 Patient encounter procedure 05/16/2024 8:30 AM EDT Office Visit Psychiatry [address] [facility] [place] [address] Cecilia Rushing, ELECTRIC RAZOR MECHANIC.[employer] [address] [facility] [place] [address] follow up Psychiatry Comment on above: follow up Start: 04-23-2024 Covid-19 Vaccine ( season) Covid-19 Vaccine ( season) [facility] Start: 04-23-2024 Covid-19 Vaccine ( season) Covid-19 Vaccine ( season) [facility] Start: 04-23-2024 Influenza vaccination [facility] Start: 03-28-2024 End: 03-28-2024 Patient encounter procedure 03/28/2024 8:30 AM EDT Office Visit Psychiatry [address] [place] [address] Cecilia Rushing, ELECTRIC RAZOR MECHANIC.[employer] [address] [place] [address] FOLLOW UP Psychiatry Comment on above: FOLLOW UP Start: 02-01-2024 End: 02-01-2024 Patient encounter procedure 02/01/2024 3:30 PM EDT Office Visit Psychiatry [address] [place] [id number] Cecilia Rushing, ELECTRIC RAZOR MECHANIC.[employer] [address] [place] [id number] FOLLOW UP Psychiatry Comment on above: FOLLOW UP Start: 01-26-2024 End: 01-26-2024 Patient encounter procedure 01/26/2024 2:00 PM EDT Office Visit [facility] [address] [place], [place] [id number] Kendra Guzman, ELECTRIC RAZOR MECHANIC.[employer] [address] [place] [address] MEDICATION REVIEW FOR REFILLS [facility] Comment on above: MEDICATION REVIEW FO R REFILLS Start: 08-23-2023 Depression Assessment Depression Ass [facility] Start: 04-23-2023 Covid-19 Vaccine ( season) Covid-19 Vaccine ( season) [facility] Start: 04-23-2023 Influenza vaccination [facility] Start: 08-23-2022 DEPRESSION ASSESSMENT DEPRESSION ASS [facility] Start: 07-22-2022 End: 09-21-2022 TOX SCREEN ROUT UR TOX SCREEN ROUT UR Lab Routine Encounter for therapeutic drug level monitoring Expected: 07/22/2022, Expires: 09/21/2022 [facility] Work Phone: Comment on above: Expected: 07/22/2022 , Expires: 09/21/2022 Start: 04-23-2022 Influenza vaccination INFLUENZA (#1) [facility] Start: 08-23-2021 [facility] Start: 06-01-2021 PAP TESTING PAP TESTING [facility] Start: 06-01-2021 Screening for malign ant neoplasm of cervix Pap Testing [facility] Start: 04-23-2020 Influenza vaccination INFLUENZA (#1) [facility] Start: 2019 HPV TESTING HPV TESTING [facility] Start: 2019 Screening for malign ant neoplasm of cervix HPV Testing [facility] Start: 06-01-2019 Screening for malign ant neoplasm of cervix Cervical Cancer Screening [facility] Start: 2016 HPV Vaccine (1 - 3-d ose SCDM series) HPV Vaccine (1 - 3-dose SCDM series) [facility] Start: 2008 Hepatitis B Vaccine (1 of 3 - 19+ 3-dose series) Hepatitis B Vaccine (1 of 3 - 19+ 3-dose series) [facility] Start: 2008 Urine microalbumin profile [facility] Start: 2007 Depression Screening Depression Scre ening [facility] Start: 2007 HEPATITIS C SCREENING HEPATITIS [facility] Start: 2007 Hepatitis C screening Hepatitis C [facility] Start: 2007 HIV SCREENING HIV SCREENING [facility] Start: 2007 HIV screening HIV Screening [facility] Start: 03-23-1990 COVID-19 VACCINE (#1) COVID-19 VACCI NE (#1) [facility] Start: 1989 HEPATITIS B (1 of 3 - 3-dose series) HEPATITIS B (1 of 3 - 3-dose series) [facility] Start: 1989 Hepatitis B Vaccine (1 of 3 - 3-dose series) Hepatitis B Vaccine (1 of 3 - 3-dose series) [facility] Bacteria identified in Urine by Culture URINE CULTURE Microbiology Routine Dysuria Ordered: 06/09/2022 [facility] Work Phone: Comment on above: Ordered: 06/09/2022 Choriogonadotropin ( test) [Presence] in Urine HCG QUAL UR Lab Routine Encounter for therapeutic drug level monitoring Ordered: 07/22/2022 [facility] Work Phone: Comment on above: Ordered: 07/22/2022 End: 07-22-2023 ECG COMPLETE ECG COMPLETE ECG Routine Encounter for therapeutic drug level monitoring 1 Occurrences starting 07/22/2022 until 07/22/2023 [facility] Work Phone: Comment on above: 1 Occurrences starti ng 07/22/2022 until 07/22/2023 Patient Education ED Abdominal P ain Unkn Cause Fem ED Constipation (Adult) [facility] Work Phone: Patient referral [facility] Work Phone: Urine test visual color cmprsn meths HCG QUAL UR B/O Lab Routine Dysuria Ordered: 06/09/2022 [facility] Work Phone: Comment on above: Ordered: 06/09/2022 [facility] Immunizations Immunization Date Immunization Notes Care Provider Bella motta 06-01-2016 influenza virus vacc ine, unspecified formulation Cecilia Rushing ELECTRIC RAZOR MECHANIC.INSTRUCTOR [employer] Work Phone: [facility] Payers Date Payer Category Payer Self-pay [id number] 2022 [employer] BLUE CARD PPO OOS [id number] 2022 Unknown [id number] 2021 Unknown [id number] 2021 Unknown [id number] 2015 Medicaid [employer] [id number] 2015-Present Medicaid [id number] 2015 Unknown [employer] [id number] Unknown [id number] Social History Date Type Detail Facility Start: 06-01-2016 End: 06-09-2022 Tobacco smoking status NHIS Never smoker [facility] Start: 06-01-2016 End: 04-03-2025 Alcohol intake Current drinker of alcohol (finding) [facility] Start: 1990 Sex Assigned At Not on file [facility] Start: 06-09-2022 Tobacco use and exposure Smokeless tobacco non-user [facility] Start: 05-30-2022 End: 07-22-2022 Exposure to SARS-CoV-2 (event) Not sure [facility] Start: 06-10-2022 Tobacco smoking stat us SCIS Unknown if ever smoked [facility] Work Phone: Start: 1990 Sex Assigned At Female [facility] Work Phone: Start: 11-25-2022 End: 05-28-2023 History of Social function [facility] Start: 11-25-2022 End: 05-28-2023 Tobacco use panel [facility] Start: 07-24-2012 Adult Depression Screening Assessment 0 [facility] Clinical Notes 06-09-2022 to 04-09-2025 Patient InstructionsCecilia Rushing APRN.INSTRUCTOR [employer] - 04/03/2025 2:51 PM EDTTelephone Encounter - Cecilia Rushing APRN.INSTRUCTOR [employer] - 03/26/2025 1:59 PM EDTPatient InstructionsPatient Instructions Note Date & Type Note Facility 04-09-2025 Instructions Cecilia Rushing APRN.INSTRUCTOR [employer] - 04/09/2025 11:53 PM EDT We discussed your ADHD: - Continue taking Vyvanse 50 mg daily as prescribed. This dose appears to be working well for you. - Your next prescription refill is due on April 23. Please call the pharmacy to request the refill, as controlled medications cannot be auto-filled. - You will have enough medication until July 18. Please request your refill a little early, as this date is close to . - If you feel this dose is no longer effective before our next visit, please contact me, and I can adjust the prescription as needed. - Remember that Vyvanse can make you more sensitive to heat. Stay hydrated, especially during hot weather. We discussed your overall health and nutrition: - Your blood pressure and weight are within a healthy range. Keep up the good work. - To help maintain consistent energy levels and reduce cravings for sweets and carbs, aim to increase your protein intake. - Consider incorporating protein shakes or Venezuelan yogurt protein smoothies into your routine. These are convenient, affordable, and available in low-sugar options. - You can also explore kid-friendly protein options that your children might enjoy as well. - Continue to stay hydrated throughout the day. We discussed your next appointment: - Your next follow-up appointment is scheduled for September 28 at 4:30 PM. - If you need to reschedule or have any concerns before then, please contact our office. Please continue to monitor your symptoms and overall well-being. Let me know if you experience any new or worsening issues, such as difficulty focusing, increased anxiety, or trouble sleeping. For those experiencing a suicidal crisis: --call the National Suicide Prevention Lifeline at 362 (580-237-3512) --text the Crisis Text Line (text HOME to 960131) --call 361 and let them know you are having a mental health crisis or go to your nearest Emergency Room for stabilization. --You can also call Mobile Crisis at [phone]. -- You may call the department appointment line at [phone] to schedule your appointment. -- Please call my nurse at [phone] or send me a message in [employer] with any questions or concerns between appointments. documented in this encounter [facility] 04-03-2025 Note HNO ID: [id number] Author: CECILIA RUSHING APRN.CRISTIAN Service: ? Author Type: Nurse Practitioner Type: Progress Notes Filed: 04/09/2025 23:53 Note Text: FOLLOW UP - PSYCHIATRIC PROGRESS NOTE Visit Type:In person Recording using [employer] software for draft documentation of the visit was discussed with the patient/authorized regional sales representative; all questions welcomed and answered. Patient/authorized regional sales representative agreed to proceed CC: Outpatient follow-up and safety monitoring of previously prescribed psychiatric medication, psychotherapy or other treatment HPI: Patient is a 34-year-old female with a history of ADHD and JOHANN, presenting for follow-up and medication management. Patient reports that life has remained "the same" since her last visit approximately 8 months ago, describing her current state as "okay" but "busy." She attributes much of her busyness to her children's activities and her new relationship with her boyfriend of 6 months. She expresses a desire for more free time, noting that her schedule feels "self-inflicted" due to her commitments. She reports that her current dose of Vyvanse 50 mg is effective in managing her ADHD symptoms, stating that it lasts "well enough" throughout the day. She notes that taking the medication too late on weekends can make it harder to fall asleep at her desired time. She feels that her focus and concentration at work are good, and she is able to keep up without feeling stressed. Her supervisors have always known her as a good employee since she started the medication around the same time she began her current job. She does not report any issues with anxiety, stating that she does not feel "overly anxious." She describes herself as a "grazer" when it comes to eating, often consuming small bites throughout the day. She acknowledges a tendency to eat sweets and carbohydrates, particularly donuts, and expresses a desire to improve her dietary choices. She has not explored protein shakes or smoothies but is open to the idea. She reports eating more meat than usual due to her boyfriend's interest in smoking meats. She has two daughters, ages 13 and 14, whom she describes as "a little immature" in a positive way. They attend a Protestant school, which she believes helps maintain their naivety. She allows them to watch TV during the summer but monitors their alexa usage, noting that they are obedient and do not try to sneak apps like [employer]. Her daughters are involved in team sports and drama programs outside of school, which keeps them busy. She shares custody of her daughters with her ex-, who lost his job twice a few months ago, causing temporary stress due to delayed child support payments. Her daughters spend time with him a couple of times a week during the summer. She receives help from her grandparents for pick-ups and drop-offs when needed. She describes herself as introverted and notes that her new relationship has been an adjustment, as she was used to being alone. Her boyfriend wants to see her as much as possible, but she prefers to meet once a week. She feels that her boyfriend is making efforts to be present with her children, which she appreciates. She reports no new physical health issues or medications. She denies any recent car accidents but admits to speeding due to running late frequently. She describes "time blindness" as a challenge, often losing track of time and running late for work. Her workplace is strict about punctuality, and she has had to take half days when running late. Risks and benefits of the medication, including any black box warnings, were discussed with the patient. Interval Progress: Slightly improved PATIENT DATA: Generalized Anxiety Disorder Scale (JOHANN-7) 06/18/2023 09/07/2023 09/05/2024 JOHANN - 7 SCORES Score 5 1 0 (0-4) minimal anxiety, (5-9) mild anxiety, (10-14) moderate anxiety, (15-21) severe anxiety Patient Health Questionnaire (PHQ-9) 06/18/2023 09/07/2023 09/05/2024 PHQ-9 Score 2 0 0 Data saved with a previous flowsheet row definition (0-4) minimal depression, (5-9) mild depression, (10-14) moderate depression, (15-19) moderately severe depression, (20-27) severe depression PROMIS Global Health 09/21/2022 12/24/2022 05/28/2023 PROMIS Global Health - (T-Scores - the mean of general population = 50. Five points is a clinically meaningful difference.) Physical T-Score 57.7 54.1 54.1 Mental T-Score 45.8 38.8 25.1 PAST MEDICAL HISTORY Diagnosis Date Altered bowel function Anxiety state Diarrhea Oral contraceptive prescribed PAST SURGICAL HISTORY Procedure Laterality Date NONE Current Outpatient Medications Medication Sig Dispense Refill lisdexamfetamine (VYVANSE) 50 mg capsule Take 1 capsule by mouth once daily for 30 days. 30 capsule 0 [START ON 04/23/2025] lisdexamfetamine (VYVANSE) 50 mg capsule Take 1 capsule by mouth once daily for 30 days (more content not included)... [facility] 04-03-2025 History of Presen t illness Narrative Images from the original note were not included. FOLLOW UP - PSYCHIATRIC PROGRESS NOTE Visit Type:In person Recording using [employer] software for draft documentation of the visit was discussed with the patient/authorized regional sales representative; all questions welcomed and answered. Patient/authorized regional sales representative agreed to proceed CC: Outpatient follow-up and safety monitoring of previously prescribed psychiatric medication, psychotherapy or other treatment HPI: Patient is a 34-year-old female with a history of ADHD and JOHANN, presenting for follow-up and medication management. Patient reports that life has remained "the same" since her last visit approximately 8 months ago, describing her current state as "okay" but "busy." She attributes much of her busyness to her children's activities and her new relationship with her boyfriend of 6 months. She expresses a desire for more free time, noting that her schedule feels "self-inflicted" due to her commitments. She reports that her current dose of Vyvanse 50 mg is effective in managing her ADHD symptoms, stating that it lasts "well enough" throughout the day. She notes that taking the medication too late on weekends can make it harder to fall asleep at her desired time. She feels that her focus and concentration at work are good, and she is able to keep up without feeling stressed. Her supervisors have always known her as a good employee since she started the medication around the same time she began her current job. She does not report any issues with anxiety, stating that she does not feel "overly anxious." She describes herself as a "grazer" when it comes to eating, often consuming small bites throughout the day. She acknowledges a tendency to eat sweets and carbohydrates, particularly donuts, and expresses a desire to improve her dietary choices. She has not explored protein shakes or smoothies but is open to the idea. She reports eating more meat than usual due to her boyfriend's interest in smoking meats. She has two daughters, ages 13 and 14, whom she describes as "a little immature" in a positive way. They attend a Protestant school, which she believes helps maintain their naivety. She allows them to watch TV during the summer but monitors their alexa usage, noting that they are obedient and do not try to sneak apps like [employer]. Her daughters are involved in team sports and drama programs outside of school, which keeps them busy. She shares custody of her daughters with her ex-, who lost his job twice a few months ago, causing temporary stress due to delayed child support payments. Her daughters spend time with him a couple of times a week during the summer. She receives help from her grandparents for pick-ups and drop-offs when needed. She describes herself as introverted and notes that her new relationship has been an adjustment, as she was used to being alone. Her boyfriend wants to see her as much as possible, but she prefers to meet once a week. She feels that her boyfriend is making efforts to be present with her children, which she appreciates. She reports no new physical health issues or medications. She denies any recent car accidents but admits to speeding due to running late frequently. She describes "time blindness" as a challenge, often losing track of time and running late for work. Her workplace is strict about punctuality, and she has had to take half days when running late. Risks and benefits of the medication, including any black box warnings, were discussed with the patient. Interval Progress: Slightly improved PATIENT DATA: Generalized Anxiety Disorder Scale (JOHANN-7) 06/18/2023 09/07/2023 09/05/2024 JOHANN - 7 SCORES Score 5 1 0 (0-4) minimal anxiety, (5-9) mild anxiety, (10-14) moderate anxiety, (15-21) severe anxiety Patient Health Questionnaire (PHQ-9) 06/18/2023 09/07/2023 09/05/2024 PHQ-9 Score 2 0 0 Data saved with a previous flowsheet row definition (0-4) minimal depression, (5-9) mild depression, (10-14) moderate depression, (15-19) moderately severe depression, (20-27) severe depression PROMIS Global Health 09/21/2022 12/24/2022 05/28/2023 PROMIS Global Health - (T-Scores - the mean of general population = 50. Five points is a clinically meaningful difference.) Physical T-Score 57.7 54.1 54.1 Mental T-Score 45.8 38.8 25.1 PAST MEDICAL HISTORY Diagnosis Date Altered bowel function Anxiety state Diarrhea Oral contraceptive prescribed PAST SURGICAL HISTORY Procedure Laterality Date NONE Current Outpatient Medications Medication Sig Dispense Refill lisdexamfetamine (VYVANSE) 50 mg capsule Take 1 capsule by mouth once daily for 30 days. 30 capsule 0 [START ON 04/23/2025] lisdexamfetamine (VYVANSE) 50 mg capsule Take 1 capsule by mouth once daily for 30 days. Patient should start on April 23, 2025. 30 capsule 0 [START ON 05/21/2025] lisdexamfetamine (VYVANSE) 50 mg capsule Take 1 capsule by mouth once daily for 30 days. Patient should start on May 21, 2025. 30 capsule 0 [START ON 06/18/2025] lisdexamfetamine (VYVANSE) 50 mg capsule Take 1 capsule by mouth once daily for 30 days. Patient should start on June 18, 2025. 30 capsule 0 No current facility-administered medications for this visit. ROS: See HPI PFSH: see HPI VITAL SIGNS: 04/03/25 1441 BP: 110/72 Pulse: 88 Resp: 16 SpO2: 99% Weight: 55.5 kg (122 lb 6.4 oz) MENTAL STATUS EXAM: Mental Status Exam General/Sensorium: Alert Orientation: AAOx3 Appearance: Appears well groomed and stated age Eye contact: Appropriate Demeanor: Appropriately interactive Motor activity: Calm Speech: Articulate with appropriate rhythm and volume Mood: Euthymic Affect: Congruent with mood Thought process: Linear, logical, and goal-directed Associations: Normal Thought content: Discussing stressors, future goals or plans and focused on history, symptoms, and management Suicidal ideation: SI: no Plan: no Intent: no Homicidal ideation: HI: no Plan: no Intent: no Abnormal/psychotic thoughts: Absent Perceptions: She does not appear internally stimulated. Attention: - improved with Vyvanse Memory: Short-term: Intact Long-term: Intact Language: Intact Fund of knowledge: Appropriate Insight: Good Judgment: Good DATA REVIEWED: [facility] website checked and validated. All prescriptions have been APPROPRIATELY filled. No suspicious activity was identified. 04/03/2025 by Cecilia Rushing APRN.CRISTIAN Psychiatric scales, Labs, and Electronic medical record ASSESSMENT & PLAN: 1. 1. ADHD (attention deficit hyperactivity disorder), inattentive type (F90.0) Symptoms are well-managed on Vyvanse 50 mg daily. Patient reports effective focus and concentration at work, with medication lasting throughout the day. No recent car accidents or significant issues related to time management. - Continue Vyvanse 50 mg daily. - Provided refills for three months, with next pickup on April 23. - Scheduled follow-up appointment in six months on September 25 at 1630. - Advised patient to monitor for any changes in effectiveness and to report if the current dose becomes insufficient. 2. JOHANN (generalized anxiety disorder) (F41.1) Anxiety symptoms are well-controlled with current medication regimen. 3. Psychosocial stressors (Z65.8) Patient reports being busy with work, children's activities, and a new relationship. No significant stressors from ex-partner; relationship with boyfriend is positive and supportive. - Encouraged patient to maintain a balanced diet with adequate protein intake to support energy levels and reduce cravings. - Discussed the importance of hydration, especially during heat waves, due to increased heat sensitivity from Vyvanse. 4. Encounter for long-term (current) use of medications (Z79.899) Patient is on long-term Vyvanse 50 mg daily for ADHD management. Current medication regimen unchanged. Prescriptions given Medical Decision Making: Problems: Moderate: 2+ stable chronic illnesses Risk: Moderate: Drug management and Moderate risk from testing/treatment Medical Decision Making Level: 4 - Moderate ADD ON PSYCHOTHERAPY CODE : No SIGNATURE: Cecilia Rushing APRN.[facility] PATIENT NAME: Dillan Melo DATE: April 03, 2025 TIME: 2:51 PM documented in this encounter [facility] 03-26-2025 Telephone encounter Note The PDMP report was reviewed and found to be appropriate without any signs of misuse or diversion. 30 day refill sent. Patient has a follow up visit scheduled this month with the provider. [facility] 03-26-2025 Miscellaneous Notes The PDMP report was reviewed and found to be appropriate without any signs of misuse or diversion. 30 day refill sent. Patient has a follow up visit scheduled this month with the provider. Last: 09/05/24 TREATMENT PLAN: Continue Vyvanse at the 50 mg dose to address ADHD symptoms. Complete monitoring lab work prior to the next appointment. Will complete EKG for monitoring if patient continues to notice benefit from Vyvanse at this dose. Encouraged patient to contact HR to and send paperwork to provider to obtain intermittent FMLA to attend appointments without being penalized. Follow up in 3 months or sooner if needed. Next: 04/03/25 documented in this encounter [facility] 03-26-2025 Telephone encounter Note Last: 09/05/24 TREATMENT PLAN: Continue Vyvanse at the 50 mg dose to address ADHD symptoms. Complete monitoring lab work prior to the next appointment. Will complete EKG for monitoring if patient continues to notice benefit from Vyvanse at this dose. Encouraged patient to contact HR to and send paperwork to provider to obtain intermittent FMLA to attend appointments without being penalized. Follow up in 3 months or sooner if needed. Next: 04/03/25 [facility] 02-19-2025 Telephone encounter Note The PDMP report was reviewed and found to be appropriate without any signs of misuse or diversion. 30 day refill of Vyvanse sent. Message forwarded so patient could get assistance in rescheduling her appointment with the provider. [facility] 02-19-2025 Miscellaneous Notes The PDMP report was reviewed and found to be appropriate without any signs of misuse or diversion. 30 day refill of Vyvanse sent. Message forwarded so patient could get assistance in rescheduling her appointment with the provider. documented in this encounter [facility] 01-31-2025 Telephone encounter Note The PDMP report was reviewed and found to be appropriate without any signs of misuse or diversion. Refill for Vyvanse sent to the pharmacy. [facility] 01-31-2025 Miscellaneous Notes The PDMP report was reviewed and found to be appropriate without any signs of misuse or diversion. Refill for Vyvanse sent to the pharmacy. Pt rescheduled to 03/13/25 @11 AM. Will need vyvanse 50 mg by 02/15/25 sent to [facility]. Isaura Gann LPN documented in this encounter [facility] 01-25-2025 Telephone encounter Note Pt rescheduled to 03/13/25 @11 AM. Will need vyvanse 50 mg by 02/15/25 sent to [facility]. Isaura Gann LPN [facility] 01-16-2025 Telephone encounter Note Last: 09/05/24 TREATMENT PLAN: Continue Vyvanse at the 50 mg dose to address ADHD symptoms. Complete monitoring lab work prior to the next appointment. Will complete EKG for monitoring if patient continues to notice benefit from Vyvanse at this dose. Encouraged patient to contact HR to and send paperwork to provider to obtain intermittent FMLA to attend appointments without being penalized. Follow up in 3 months or sooner if needed. Next: 01/30/25 [facility] 01-16-2025 Miscellaneous Notes Last: 09/05/24 TREATMENT PLAN: Continue Vyvanse at the 50 mg dose to address ADHD symptoms. Complete monitoring lab work prior to the next appointment. Will complete EKG for monitoring if patient continues to notice benefit from Vyvanse at this dose. Encouraged patient to contact HR to and send paperwork to provider to obtain intermittent FMLA to attend appointments without being penalized. Follow up in 3 months or sooner if needed. Next: 01/30/25 documented in this encounter [facility] 12-13-2024 Note Addended by: CECILIA RUSHING on: 12/13/2024 12:45 PM Modules accepted: Orders [facility] 12-13-2024 Miscellaneous Notes Addended by: CECILIA RUSHING on: 12/13/2024 12:45 PM Modules accepted: Orders documented in this encounter [facility] 12-11-2024 Telephone encounter Note The PDMP report was reviewed and found to be appropriate without any signs of misuse or diversion. Refill for Vyvanse sent to the patient's pharmacy. Lab orders placed again per patient request. [facility] 12-11-2024 Miscellaneous Notes The PDMP report was reviewed and found to be appropriate without any signs of misuse or diversion. Refill for Vyvanse sent to the patient's pharmacy. Lab orders placed again per patient request. documented in this encounter [facility] 12-08-2024 Telephone encounter Note Please add order for labs prior to patient appointment. Thank you, Isaura Gann LPN [facility] 12-08-2024 Miscellaneous Notes Please add order for labs prior to patient appointment. Thank you, Isaura Gann LPN documented in this encounter [facility] 09-18-2024 Instructions Cecilia Rushing APRN.CNP - 09/18/2024 11:25 PM EST TREATMENT PLAN: Continue Vyvanse at the 50 mg dose to address ADHD symptoms. Complete monitoring lab work prior to the next appointment. Will complete EKG for monitoring if patient continues to notice benefit from Vyvanse at this dose. Encouraged patient to contact HR to and send paperwork to provider to obtain intermittent FMLA to attend appointments without being penalized. Follow up in 3 months or sooner if needed. For those experiencing a suicidal crisis: --call the National Suicide Prevention Lifeline at 988 (270.222.3001) --text the Crisis Text Line (text HOME to 860488) --call 911 and let them know you are having a mental health crisis or go to your nearest Emergency Room for stabilization. --You can also call Mobile Crisis at [phone]. -- You may call the department appointment line at [phone] to schedule your appointment. -- Please call my nurse at [phone] or send me a message in [employer] with any questions or concerns between appointments. documented in this encounter [facility] 09-05-2024 Note HNO ID: [id number] Author: CECILIA RUSHING APRN.[employer] Service: ? Author Type: Nurse Practitioner Type: Progress Notes Filed: 09/18/2024 23:26 Note Text: FOLLOW UP - PSYCHIATRIC PROGRESS NOTE PATIENT: Dillan Melo DATE: September 05, 2024 Visit Type:In person All information is from Patient report except when noted. This evaluation is NOT intended for forensic, disability or child custody purposes. CC: Presenting today for follow up regarding psychiatric medication management. HPI: Treatment Plan from Last Visit on 05/16/2024: TREATMENT PLAN: Increase Vyvanse to 50 mg to address ADHD symptoms. If patient continues to struggle with executive dysfunction concerns, discuss engagement in neuro divergence IOP through [facility]. Order urine tox screen and CMP at the next appointment. Practice gamifying tasks to increase urgency to help you complete them on time. Today Dillan shares that she spontaneously planned a trip to [place]. Shares that her kids are excited to go to [place]. Shares that sometimes she won't take her Vyvanse on the weekends when she sleeps in too much. The increase in Vyvanse has helped with her symptoms. Denies any side effects from the medicine. Does not notice it wearing off during the day. No dry mouth side effects. Denies changes in her overall physical health. I am one point from being fired" due to tardiness to work. She misunderstood the new policy. I have to have perfect attendance for the next 5 months". She is stressed about this and wonders if she should find a new job. She has gotten a real good review and her productivity is good. 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 She shares that her executive functioning has improved. Sometimes will have situation stress. Trying to work through changing the thought patterns". Also has stress about missing work for having appointments. Discussed talking to HR about intermittent FMLA paperwork. Discussed completing lab work for monitoring. Interval Progress: Slightly improved PATIENT DATA: Generalized Anxiety Disorder Scale (JOHANN-7) 06/18/2023 09/07/2023 09/05/2024 JOHANN - 7 SCORES Score 5 1 0 (0-4) minimal anxiety, (5-9) mild anxiety, (10-14) moderate anxiety, (15-21) severe anxiety Patient Health Questionnaire (PHQ-9) 06/18/2023 09/07/2023 09/05/2024 PHQ-9 Score 2 0 0 (0-4) minimal depression, (5-9) mild depression, (10-14) moderate depression, (15-19) moderately severe depression, (20-27) severe depression PAST MEDICAL HISTORY Diagnosis Date Altered bowel function Anxiety state Diarrhea Oral contraceptive prescribed PAST SURGICAL HISTORY Procedure Laterality Date NONE ALLERGIES No Known Allergies Current Outpatient Medications on File Prior to Visit Medication Sig lisdexamfetamine (VYVANSE) 50 mg capsule Take 1 capsule by mouth once daily for 30 days. No current facility-administered medications on file prior to visit. ROS: See HPI PFSH: See HPI VITAL SIGNS: 09/05/24 1357 BP: 122/76 Pulse: 72 Resp: 16 Weight: 57.4 kg (126 lb 9.6 oz) Last 3 Encounter BP Readings: Date: BP: 09/05/2024 122/76 05/16/2024 114/68 03/28/2024 117/81 MENTAL STATUS EXAMINATION: Appearance: Well dressed, well groomed Behavior: Behaves appropriately during the encounter Social relatedness: Euthymic Speech/Language: The patient demonstrates appropriate tone, prosody, silva, phonetics, and syntax Mood: stressed Affect: Full and appropriate to topic Orientation: Person, Place, Time and Situation Associations: Intact and linear Hallucinations: None Delusions: None Suicidal Ideation: No suicidal ideation, intent or plan. Homicidal Ideation: No homicidal ideation, intent or plan. Insight: Appropriate Judgment: Appropriate DATA REVIEWED: Psychiatric scales, Electronic medical record, and The PDMP report was reviewed and found to be appropriate without any signs of misuse or diversion. DIAGNOSIS: Encounter for long-term (current) use of medications Adhd (attention deficit hyperactivity disorder), inattentive type (primary encounter diagnosis) Johann (generalized anxiety disorder) Psychosocial stressors GAF: -70-61 Some mild symptoms or some difficulty in social, occupational, or school functioning, but generally functioning pretty well. TREATMENT PLAN: Continue Vyvanse at the 50 mg dose to address ADHD symptoms. Complete monitoring lab work prior to the next appointment. Will complete EKG for monitoring if patient continues to notice benefit from Vyvanse at this dose. Encouraged patient to contact HR to and send paperwork to provider to obtain intermittent FMLA to attend appointments without being penalized. Follow up in 3 months or sooner if needed. MEDICATION CHANGES: Current medication regimen unchanged. Prescriptions given (more content not included)... [facility] 09-05-2024 History of Presen t illness Narrative Images from the original note were not included. FOLLOW UP - PSYCHIATRIC PROGRESS NOTE PATIENT: Dillan Melo DATE: September 05, 2024 Visit Type:In person All information is from Patient report except when noted. This evaluation is NOT intended for forensic, disability or child custody purposes. CC: Presenting today for follow up regarding psychiatric medication management. HPI: Treatment Plan from Last Visit on 05/16/2024: TREATMENT PLAN: Increase Vyvanse to 50 mg to address ADHD symptoms. If patient continues to struggle with executive dysfunction concerns, discuss engagement in neuro divergence IOP through [facility]. Order urine tox screen and CMP at the next appointment. Practice gamifying tasks to increase urgency to help you complete them on time. Today Dillan shares that she spontaneously planned a trip to [place]. Shares that her kids are excited to go to [place]. Shares that sometimes she won't take her Vyvanse on the weekends when she sleeps in too much. The increase in Vyvanse has helped with her symptoms. Denies any side effects from the medicine. Does not notice it wearing off during the day. No dry mouth side effects. Denies changes in her overall physical health. I am one point from being fired" due to tardiness to work. She misunderstood the new policy. I have to have perfect attendance for the next 5 months". She is stressed about this and wonders if she should find a new job. She has gotten a real good review and her productivity is good. 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 She shares that her executive functioning has improved. Sometimes will have situation stress. Trying to work through changing the thought patterns". Also has stress about missing work for having appointments. Discussed talking to HR about intermittent FMLA paperwork. Discussed completing lab work for monitoring. Interval Progress: Slightly improved PATIENT DATA: Generalized Anxiety Disorder Scale (JOHANN-7) 06/18/2023 09/07/2023 09/05/2024 JOHANN - 7 SCORES Score 5 1 0 (0-4) minimal anxiety, (5-9) mild anxiety, (10-14) moderate anxiety, (15-21) severe anxiety Patient Health Questionnaire (PHQ-9) 06/18/2023 09/07/2023 09/05/2024 PHQ-9 Score 2 0 0 (0-4) minimal depression, (5-9) mild depression, (10-14) moderate depression, (15-19) moderately severe depression, (20-27) severe depression PAST MEDICAL HISTORY Diagnosis Date Altered bowel function Anxiety state Diarrhea Oral contraceptive prescribed PAST SURGICAL HISTORY Procedure Laterality Date NONE ALLERGIES No Known Allergies Current Outpatient Medications on File Prior to Visit Medication Sig lisdexamfetamine (VYVANSE) 50 mg capsule Take 1 capsule by mouth once daily for 30 days. No current facility-administered medications on file prior to visit. ROS: See HPI PFSH: See HPI VITAL SIGNS: 09/05/24 1357 BP: 122/76 Pulse: 72 Resp: 16 Weight: 57.4 kg (126 lb 9.6 oz) Last 3 Encounter BP Readings: Date: BP: 09/05/2024 122/76 05/16/2024 114/68 03/28/2024 117/81 MENTAL STATUS EXAMINATION: Appearance: Well dressed, well groomed Behavior: Behaves appropriately during the encounter Social relatedness: Euthymic Speech/Language: The patient demonstrates appropriate tone, prosody, sliva, phonetics, and syntax Mood: stressed Affect: Full and appropriate to topic Orientation: Person, Place, Time and Situation Associations: Intact and linear Hallucinations: None Delusions: None Suicidal Ideation: No suicidal ideation, intent or plan. Homicidal Ideation: No homicidal ideation, intent or plan. Insight: Appropriate Judgment: Appropriate DATA REVIEWED: Psychiatric scales, Electronic medical record, and The PDMP report was reviewed and found to be appropriate without any signs of misuse or diversion. DIAGNOSIS: Encounter for long-term (current) use of medications Adhd (attention deficit hyperactivity disorder), inattentive type (primary encounter diagnosis) Johann (generalized anxiety disorder) Psychosocial stressors GAF: -70-61 Some mild symptoms or some difficulty in social, occupational, or school functioning, but generally functioning pretty well. TREATMENT PLAN: Continue Vyvanse at the 50 mg dose to address ADHD symptoms. Complete monitoring lab work prior to the next appointment. Will complete EKG for monitoring if patient continues to notice benefit from Vyvanse at this dose. Encouraged patient to contact HR to and send paperwork to provider to obtain intermittent FMLA to attend appointments without being penalized. Follow up in 3 months or sooner if needed. MEDICATION CHANGES: Current medication regimen unchanged. Prescriptions given Risks and benefits of the medication, including any black box warnings, were discussed with the patient. Patient is aware to reach out with any questions, concerns, or worsening of symptoms prior to the next appointment. Patient educated on risks of substance use in combination with medications and advised that any substance use along with medications may alter their effectiveness. Follow Up: See Treatment Plan Medical Decision Making: Problems: Moderate: 2+ stable chronic illnesses Data: Unique source(s) for external note(s) reviewed: 3+ Unique test(s) ordered: 3+ Independent interpretation of test from other physician/QHCP Risk: Moderate: Drug management Medical Decision Making Level: 4 - Moderate ADD ON PSYCHOTHERAPY CODE : No SIGNATURE: Cecilia Rushing APRN.CNP PATIENT NAME: Dillan Melo DATE: September 05, 2024 TIME: 2:12 PM documented in this encounter [facility] 06-15-2024 Telephone encounter Note The PDMP report was reviewed and found to be appropriate without any signs of misuse or diversion. 30 day refill provided. [facility] 06-15-2024 Miscellaneous Notes The PDMP report was reviewed and found to be appropriate without any signs of misuse or diversion. 30 day refill provided. Last: 05/16/24 TREATMENT PLAN: 1.Increase Vyvanse to 50 mg to address ADHD symptoms. 2.If patient continues to struggle with executive dysfunction concerns, discuss engagement in neuro divergence IOP through [facility]. 3.Order urine tox screen and CMP at the next appointment. 4.Practice gamifying tasks to increase urgency to help you complete them on time. Follow up in 2 months Next: NA documented in this encounter [facility] 06-15-2024 Telephone encounter Note Last: 05/16/24 TREATMENT PLAN: 1.Increase Vyvanse to 50 mg to address ADHD symptoms. 2.If patient continues to struggle with executive dysfunction concerns, discuss engagement in neuro divergence IOP through [facility]. 3.Order urine tox screen and CMP at the next appointment. 4.Practice gamifying tasks to increase urgency to help you complete them on time. Follow up in 2 months Next: NA [facility] 05-16-2024 Instructions Cecilia Rushing APRN.CNP - 05/16/2024 9:03 AM EDT Megan Mayer, It was good to talk with you today. Below is a summary of the plan that we discussed during your appointment for reference. Of course, if you have any questions or concerns do not hesitate to reach out to me via a message or call. Cecilia Herrera APRN.CNP PLAN AND FOLLOW UP: TREATMENT PLAN: Increase Vyvanse to 50 mg to address ADHD symptoms. If patient continues to struggle with executive dysfunction concerns, discuss engagement in neuro divergence IOP through [facility]. Order urine tox screen and CMP at the next appointment. Practice gamifying tasks to increase urgency to help you complete them on time. For those experiencing a suicidal crisis: --call the National Suicide Prevention Lifeline at 988 (074-971-4867) --text the Crisis Text Line (text HOME to 302002) --call 911 and let them know you are having a mental health crisis or go to your nearest Emergency Room for stabilization. --You can also call Mobile Crisis at [phone]. Next appointment: --Schedule in 2 months or sooner if needed -- You may call the department appointment line at [phone] to schedule your appointment. -- Please call my nurse at [phone] or send me a message in [employer] with any questions or concerns between appointments. documented in this encounter [facility] 05-16-2024 Note HNO ID: [id number] Author: CECILIA RUSHING APRN.CRISTIAN Service: ? Author Type: Nurse Practitioner Type: Progress Notes Filed: 05/16/2024 09:06 Note Text: FOLLOW UP - PSYCHIATRIC PROGRESS NOTE PATIENT: Dillan Melo DATE: May 16, 2024 Visit Type:In person All information is from Patient report except when noted. This evaluation is NOT intended for forensic, disability or child custody purposes. CC: Presenting today for follow up regarding psychiatric medication management. HPI: Treatment Plan from Last Visit on 03/28/2024: Discontinue Prozac as patient has already stopped taking it due to weight gain related to it and improvement in anxiety when ADHD symptoms were treated with a stimulant. Discontinue Adderall due to lack of efficacy and struggles with duration of action of this medication to manage her symptoms in multiple setting. Start Vyvanse to address ADHD symptoms especially targeting her executive dysfunction. Start 40 mg and share update in a ARI message to assess if dose is adequate and the duration of action is supportive. Consider increasing the dose to 50 mg if needed. Will order monitoring lab work at the next appointment. Today Dillan shares that I am doing okay. Has adjustmented well to the Vyvanse. Notices it helping with her concentration and mood. Takes Vyvanse around 7 am and does not experience a crash like she did in energy with Adderall. Wishes that her forgetfulness would improve. Still struggles to prioritize at work. Works better if she is under pressure or has a lot of demands. Discussed gamifying some of her work related tasks. I wish that I had Vyvanse in my life a long time ago as it would have made a lot of things better". Discussed increasing Vyvanse to 50 mg. Denies any concerns with physical health. Able to keep up with the demands related to work even though work load has increased due to staffing shortage. Will need to order lab work next time for monitoring purposes. Interval Progress: Slightly improved PATIENT DATA: Generalized Anxiety Disorder Scale (JOHANN-7) 05/28/2023 06/18/2023 09/07/2023 JOHANN - 7 SCORES Score 16 5 1 (0-4) minimal anxiety, (5-9) mild anxiety, (10-14) moderate anxiety, (15-21) severe anxiety Patient Health Questionnaire (PHQ-9) 05/28/2023 06/18/2023 09/07/2023 PHQ-9 Score 4 2 0 (0-4) minimal depression, (5-9) mild depression, (10-14) moderate depression, (15-19) moderately severe depression, (20-27) severe depression PAST MEDICAL HISTORY Diagnosis Date Altered bowel function Anxiety state Diarrhea Oral contraceptive prescribed PAST SURGICAL HISTORY Procedure Laterality Date NONE ALLERGIES No Known Allergies Current Outpatient Medications on File Prior to Visit Medication Sig lisdexamfetamine (VYVANSE) 40 mg capsule Take 1 capsule by mouth once daily for 30 days. No current facility-administered medications on file prior to visit. ROS: See HPI PFSH: See HPI VITAL SIGNS: 05/16/24 0832 BP: 114/68 Pulse: 68 Resp: 16 Weight: 58.1 kg (128 lb) Last 3 Encounter BP Readings: Date: BP: 05/16/2024 114/68 03/28/2024 117/81 09/07/2023 116/74 MENTAL STATUS EXAMINATION: Appearance: Well dressed, well groomed Behavior: Behaves appropriately during the encounter Social relatedness: Euthymic Speech/Language: The patient demonstrates appropriate tone, prosody, silva, phonetics, and syntax Mood: euthymic Affect: Full and appropriate to topic Orientation: Person, Place, Time and Situation Associations: Intact and linear Hallucinations: None Delusions: None Suicidal Ideation: No suicidal ideation, intent or plan. Homicidal Ideation: No homicidal ideation, intent or plan. Insight: Appropriate Judgment: Appropriate DATA REVIEWED: Psychiatric scales, Electronic medical record, and The PDMP report was reviewed and found to be appropriate without any signs of misuse or diversion. DIAGNOSIS: Adhd (attention deficit hyperactivity disorder), inattentive type (primary encounter diagnosis) Johann (generalized anxiety disorder) GAF: -70-61 Some mild symptoms or some difficulty in social, occupational, or school functioning, but generally functioning pretty well. TREATMENT PLAN: Increase Vyvanse to 50 mg to address ADHD symptoms. If patient continues to struggle with executive dysfunction concerns, discuss engagement in neuro divergence IOP through [facility]. Order urine tox screen and CMP at the next appointment. Practice gamifying tasks to increase urgency to help you complete them on time. MEDICATION CHANGES: See above Risks and benefits of the medication, including any black box warnings, were discussed with the patient. Patient is aware to reach out with any questions, concerns, or worsening of symptoms prior to the next appointment. Patient educated on risks of substance use in combination with medications and (more content not included)... [facility] 05-16-2024 History of Presen t illness Narrative Images from the original note were not included. FOLLOW UP - PSYCHIATRIC PROGRESS NOTE PATIENT: Dillan Melo DATE: May 16, 2024 Visit Type:In person All information is from Patient report except when noted. This evaluation is NOT intended for forensic, disability or child custody purposes. CC: Presenting today for follow up regarding psychiatric medication management. HPI: Treatment Plan from Last Visit on 03/28/2024: Discontinue Prozac as patient has already stopped taking it due to weight gain related to it and improvement in anxiety when ADHD symptoms were treated with a stimulant. Discontinue Adderall due to lack of efficacy and struggles with duration of action of this medication to manage her symptoms in multiple setting. Start Vyvanse to address ADHD symptoms especially targeting her executive dysfunction. Start 40 mg and share update in a ARI message to assess if dose is adequate and the duration of action is supportive. Consider increasing the dose to 50 mg if needed. Will order monitoring lab work at the next appointment. Today Dillan shares that I am doing okay. Has adjustmented well to the Vyvanse. Notices it helping with her concentration and mood. Takes Vyvanse around 7 am and does not experience a crash like she did in energy with Adderall. Wishes that her forgetfulness would improve. Still struggles to prioritize at work. Works better if she is under pressure or has a lot of demands. Discussed gamifying some of her work related tasks. I wish that I had Vyvanse in my life a long time ago as it would have made a lot of things better". Discussed increasing Vyvanse to 50 mg. Denies any concerns with physical health. Able to keep up with the demands related to work even though work load has increased due to staffing shortage. Will need to order lab work next time for monitoring purposes. Interval Progress: Slightly improved PATIENT DATA: Generalized Anxiety Disorder Scale (JOHANN-7) 05/28/2023 06/18/2023 09/07/2023 JOHANN - 7 SCORES Score 16 5 1 (0-4) minimal anxiety, (5-9) mild anxiety, (10-14) moderate anxiety, (15-21) severe anxiety Patient Health Questionnaire (PHQ-9) 05/28/2023 06/18/2023 09/07/2023 PHQ-9 Score 4 2 0 (0-4) minimal depression, (5-9) mild depression, (10-14) moderate depression, (15-19) moderately severe depression, (20-27) severe depression PAST MEDICAL HISTORY Diagnosis Date Altered bowel function Anxiety state Diarrhea Oral contraceptive prescribed PAST SURGICAL HISTORY Procedure Laterality Date NONE ALLERGIES No Known Allergies Current Outpatient Medications on File Prior to Visit Medication Sig lisdexamfetamine (VYVANSE) 40 mg capsule Take 1 capsule by mouth once daily for 30 days. No current facility-administered medications on file prior to visit. ROS: See HPI PFSH: See HPI VITAL SIGNS: 05/16/24 0832 BP: 114/68 Pulse: 68 Resp: 16 Weight: 58.1 kg (128 lb) Last 3 Encounter BP Readings: Date: BP: 05/16/2024 114/68 03/28/2024 117/81 09/07/2023 116/74 MENTAL STATUS EXAMINATION: Appearance: Well dressed, well groomed Behavior: Behaves appropriately during the encounter Social relatedness: Euthymic Speech/Language: The patient demonstrates appropriate tone, prosody, silva, phonetics, and syntax Mood: euthymic Affect: Full and appropriate to topic Orientation: Person, Place, Time and Situation Associations: Intact and linear Hallucinations: None Delusions: None Suicidal Ideation: No suicidal ideation, intent or plan. Homicidal Ideation: No homicidal ideation, intent or plan. Insight: Appropriate Judgment: Appropriate DATA REVIEWED: Psychiatric scales, Electronic medical record, and The PDMP report was reviewed and found to be appropriate without any signs of misuse or diversion. DIAGNOSIS: Adhd (attention deficit hyperactivity disorder), inattentive type (primary encounter diagnosis) Johann (generalized anxiety disorder) GAF: -70-61 Some mild symptoms or some difficulty in social, occupational, or school functioning, but generally functioning pretty well. TREATMENT PLAN: Increase Vyvanse to 50 mg to address ADHD symptoms. If patient continues to struggle with executive dysfunction concerns, discuss engagement in neuro divergence IOP through [facility]. Order urine tox screen and CMP at the next appointment. Practice gamifying tasks to increase urgency to help you complete them on time. MEDICATION CHANGES: See above Risks and benefits of the medication, including any black box warnings, were discussed with the patient. Patient is aware to reach out with any questions, concerns, or worsening of symptoms prior to the next appointment. Patient educated on risks of substance use in combination with medications and advised that any substance use along with medications may alter their effectiveness. Follow Up: 2 months I spent a total of 25 minutes on the date of the service which included preparing to see the patient, [id number] patient care, completing clinical documentation, and counseling and educating the patient/family/caregiver, ordering medications/labs. ADD ON PSYCHOTHERAPY CODE : No SIGNATURE: Cecilia Rushing APRN.CNP PATIENT NAME: Dillan Melo DATE: May 16, 2024 TIME: 8:47 AM documented in this encounter [facility] 05-01-2024 Telephone encounter Note The PDMP report was reviewed and found to be appropriate without any signs of misuse or diversion. 30 day refill provided. [facility] 05-01-2024 Miscellaneous Notes The PDMP report was reviewed and found to be appropriate without any signs of misuse or diversion. 30 day refill provided. Prescription Refill Information The patient has been identified by name and date of : Yes Caregiver verified no other encounters exist for this prescription request: Yes Caregiver confirmed with patient/requestor that no other refills are due, in the near future, with this provider at this time: Yes The last office visit in the department: 03/28/2024 Does the patient have a future office visit with this provider/department: Yes, 05/16/2024 Requested Prescriptions Pending Prescriptions Disp Refills lisdexamfetamine (VYVANSE) 40 mg capsule 30 capsule 0 Sig: Take 1 capsule by mouth once daily for 30 days. JHONNY Posey May 01, 2024 8:14 AM documented in this encounter [facility] 05-01-2024 Telephone encounter Note Prescription Refill Information The patient has been identified by name and date of : Yes Caregiver verified no other encounters exist for this prescription request: Yes Caregiver confirmed with patient/requestor that no other refills are due, in the near future, with this provider at this time: Yes The last office visit in the department: 03/28/2024 Does the patient have a future office visit with this provider/department: Yes, 05/16/2024 Requested Prescriptions Pending Prescriptions Disp Refills lisdexamfetamine (VYVANSE) 40 mg capsule 30 capsule 0 Sig: Take 1 capsule by mouth once daily for 30 days. JHONNY Posey May 01, 2024 8:14 AM [facility] 03-28-2024 Instructions Cecilia Rushing APRN.CNP - 03/28/2024 9:59 AM EDT Megan Mayer, It was good to talk with you today. Below is a summary of the plan that we discussed during your appointment for reference. Of course, if you have any questions or concerns do not hesitate to reach out to me via a message or call. Best, Cecilia Rushing APRN.CNP PLAN AND FOLLOW UP: 1) Stop Adderall. 2) Start Vyvanse 40 mg to address ADHD symptoms. 3) Send [facility] message in 3 weeks to share if 40 mg is effective and supporting her for a longer duration. For those experiencing a suicidal crisis: --call the National Suicide Prevention Lifeline at 988 (475.887.2443) --text the Crisis Text Line (text HOME to 226802) --call 911 and let them know you are having a mental health crisis or go to your nearest Emergency Room for stabilization. --You can also call Mobile Crisis at [phone]. Next appointment: May 16 at 8:30 am in person -- You may call the department appointment line at [phone] to schedule your appointment. -- Please call my nurse Raquel at [phone] or send me a message in [employer] with any questions or concerns between appointments. documented in this encounter [facility] 03-28-2024 History of Presen t illness Narrative Images from the original note were not included. FOLLOW UP - PSYCHIATRIC PROGRESS NOTE PATIENT: Dillan Melo DATE: March 28, 2024 Visit Type:In person All information is from Patient report except when noted. This evaluation is NOT intended for forensic, disability or child custody purposes. CC: Presenting today for follow up regarding psychiatric medication management. HPI: Treatment Plan from Last Visit on 09/07/2023: 1. Decrease Prozac to 30 mg due to patient reporting weight gain with the increase in dose to 40 mg. 2. Continue Adderall at the same dose. 3. Restart individual psychotherapy once her insurance coverage is reestablished. Would like to return to old counselor Yamileth Valencia in [place]. Patient missed her last appointment with the provider. Was concerned about significant weight gain from Prozac which was distressing. This caused her to decrease Prozac and discontinue. Today Dillan shares that she quit the Adderall alsp for 1 month as she did not want to be on any medications. 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 When she is not taking the Adderall, she struggles significantly with executive functioning. She is not able to remember things well to manage work related responsibilities. Discussed stress with a recent work audit. Struggles with getting her thoughts organized. Is late for work often and gets penalized for it. This makes it hard for her to make time for appointments. Does not feel that she has Struggles with communicating well. Did not feel that Adderall at 20 mg is helping her executive dysfunction. Shares that she is hard on herself when she is not able to function. Anxiety symptoms are improved when she is taking medication to address ADHD. Decreased anxiety when able to get support regarding her executive dysfunction. She has struggled with weight gain since utilizing Prozac in the past. Has not been able to lose weight that she has gained from taking Prozac previously. Tends to comfort eat and eat to stimulate herself to address ADHD symptoms. Drinks 2 cups of coffee in the morning. Discussed trying Vyvanse instead of Adderall as she feels that she has struggled with noticing benefit from Adderall at the current dose. It's duration of action doesn't support her symptoms during the work hours and as she transitions home. Interval Progress: Slightly worse PATIENT DATA: Generalized Anxiety Disorder Scale (JOHANN-7) 05/28/2023 06/18/2023 09/07/2023 JOHANN - 7 SCORES Score 16 5 1 (0-4) minimal anxiety, (5-9) mild anxiety, (10-14) moderate anxiety, (15-21) severe anxiety Patient Health Questionnaire (PHQ-9) 05/28/2023 06/18/2023 09/07/2023 PHQ-9 Score 4 2 0 (0-4) minimal depression, (5-9) mild depression, (10-14) moderate depression, (15-19) moderately severe depression, (20-27) severe depression PAST MEDICAL HISTORY No date: Altered bowel function No date: Anxiety state No date: Diarrhea No date: Oral contraceptive prescribed PAST SURGICAL HISTORY No date: NONE ALLERGIES No Known Allergies Current Outpatient Medications on File Prior to Visit Medication Sig amphetamine-dextroamphetamine XR (ADDERALL XR) 20 mg capsule Take 1 capsule by mouth once daily for 30 days. amphetamine-dextroamphetamine XR (ADDERALL XR) 20 mg capsule Take 1 capsule by mouth once daily for 30 days. FLUoxetine (PROZAC) 10 mg capsule Take 3 capsules by mouth once daily. amphetamine-dextroamphetamine XR (ADDERALL XR) 20 mg capsule Take 1 capsule by mouth once daily for 30 days. Do not start before July 27, 2023. No current facility-administered medications on file prior to visit. ROS: See HPI PFSH: See HPI VITAL SIGNS: 03/28/24 0830 BP: 117/81 Pulse: 94 Resp: 14 Weight: 58.8 kg (129 lb 10.1 oz) Last 3 Encounter BP Readings: Date: BP: 03/28/2024 117/81 09/07/2023 116/74 11/25/2022 124/66 MENTAL STATUS EXAMINATION: Appearance: Well dressed, well groomed Behavior: Behaves appropriately during the encounter Social relatedness: Euthymic Speech/Language: The patient demonstrates appropriate tone, prosody, silva, phonetics, and syntax Mood: Stressed and anxious Affect: Full and appropriate to topic Orientation: Person, Place, Time and Situation Associations: Intact and linear Hallucinations: None Delusions: None Suicidal Ideation: No suicidal ideation, intent or plan. Homicidal Ideation: No homicidal ideation, intent or plan. Insight: Appropriate Judgment: Appropriate DATA REVIEWED: Psychiatric scales, Electronic medical record, and PDMP report. The PDMP report was reviewed and found to be appropriate without any signs of misuse or diversion. DIAGNOSIS: Adhd (attention deficit hyperactivity disorder), inattentive type (primary encounter diagnosis) Johann (generalized anxiety disorder) Weight gain due to medication Weight gain was due to Prozac which has been discontinued. GAF: -60-51 Moderate symptoms or moderate difficulty in social, occupational or school functioning. TREATMENT PLAN: Discontinue Prozac as patient has already stopped taking it due to weight gain related to it and improvement in anxiety when ADHD symptoms were treated with a stimulant. Discontinue Adderall due to lack of efficacy and struggles with duration of action of this medication to manage her symptoms in multiple setting. Start Vyvanse to address ADHD symptoms especially targeting her executive dysfunction. Start 40 mg and share update in a [employer] message to assess if dose is adequate and the duration of action is supportive. Consider increasing the dose to 50 mg if needed. Will order monitoring lab work at the next appointment. MEDICATION CHANGES: - Stop Adderall and Start Vyvanse Risks and benefits of the medication, including any black box warnings, were discussed with the patient. Patient is aware to reach out with any questions, concerns, or worsening of symptoms prior to the next appointment. Patient educated on risks of substance use in combination with medications and advised that any substance use along with medications may alter their effectiveness. Follow Up: As scheduled in April I spent a total of 36 minutes on the date of the service which included preparing to see the patient, [id number] patient care, completing clinical documentation, and counseling and educating the patient/family/caregiver, ordering medications/labs, communication with other health care providers and coordination of care. ADD ON PSYCHOTHERAPY CODE : No SIGNATURE: Cecilia Rushing APRN.CNP PATIENT NAME: Dillan Melo DATE: March 28, 2024 TIME: 8:37 AM documented in this encounter [facility] 11-16-2023 History of Presen t illness Narrative Patient did not come in for her appointment with the provider today. documented in this encounter [facility] 11-12-2023 Miscellaneous Notes Patient has been identified by name and date of : Yes Requested Prescriptions Pending Prescriptions Disp Refills amphetamine-dextroamphetamine XR (ADDERALL XR) 20 mg capsule 30 capsule 0 Sig: Take 1 capsule by mouth once daily for 30 days. FLUoxetine (PROZAC) 10 mg capsule 90 capsule 1 Sig: Take 3 capsules by mouth once daily. RX INSTRUCTIONS: Patient aware RX will be sent to pharmacy. No need to notify patient. Follow up 11/16/2023. Raquel Nobles LPN documented in this encounter [facility] 10-13-2023 Miscellaneous Notes Last: 09/07/23 Next: 11/16/23 documented in this encounter [facility] 06-18-2023 History of Presen t illness Narrative FOLLOW UP - PSYCHIATRIC PROGRESS NOTE Visit Type:Virtual Visit utilizing two-way audio and video for at least a portion of the visit. Consent for virtual visit obtained verbally. Confidentiality limitations with virtual visits reviewed with the patient and guardian, if present, who have accepted the risk verbally prior to proceeding with encounter. I have communicated my name and active licensure. The patient's identity and physical location were verified at the time of this visit. Either the patient or their legal regional sales representative has been informed of the risks and benefits of -- and alternatives to -- treatment through a remote evaluation and consents to proceed with the evaluation remotely. Reason for Visit: Outpatient follow-up and safety monitoring of previously prescribed psychiatric medication, psychotherapy or other treatment CC: Follow up regarding cross tapering to Prozac. HPI: Today Dillan shares that she is home. Shares that things have been better after switching to Prozac. She continues to struggle with some feelings of anxiety. She notices that she gets stressed easily and finds herself worrying a lot. Denies any side effects with the Prozac. She started a new job a few week ago. Has been taking the Adderall more regularly. She is enjoying her new job. 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 Likes the people at work. Denies any changes in her sleep or appetite. She is no longer able to engage in therapy. Her insurance switched and her therapist is no longer covered. Risks and benefits of the medication, including any black box warnings, were discussed with the patient. Interval Progress: Slightly improved PATIENT DATA: Generalized Anxiety Disorder Scale (JOHANN-7) JOHANN - 7 SCORES 12/24/2022 05/28/2023 06/18/2023 JOHANN-7 Score 4 16 5 (0-4) minimal anxiety, (5-9) mild anxiety, (10-14) moderate anxiety, (15-21) severe anxiety Patient Health Questionnaire (PHQ-9) PHQ-9 12/24/2022 05/28/2023 06/18/2023 Score 1 4 2 (0-4) minimal depression, (5-9) mild depression, (10-14) moderate depression, (15-19) moderately severe depression, (20-27) severe depression PROMIS Global Health PROMIS Global Health - (T-Scores - the mean of general population = 50. Five points is a clinically meaningful difference.) 09/21/2022 12/24/2022 05/28/2023 Physical T-Score 57.7 54.1 54.1 Mental T-Score 45.8 38.8 25.1 PAST MEDICAL HISTORY Diagnosis Date Altered bowel function Anxiety state Diarrhea Oral contraceptive prescribed PAST SURGICAL HISTORY Procedure Laterality Date NONE Current Outpatient Medications Medication Sig Dispense Refill FLUoxetine (PROZAC) 20 mg capsule Take 1 capsule by mouth once daily. 30 capsule 0 [START ON 06/27/2023] amphetamine-dextroamphetamine XR (ADDERALL XR) 20 mg capsule Take 1 capsule by mouth once daily for 30 days. Do not start before June 27, 2023. 30 capsule 0 amphetamine-dextroamphetamine XR (ADDERALL XR) 20 mg capsule Take 1 capsule by mouth once daily for 30 days. 30 capsule 0 [START ON 07/27/2023] amphetamine-dextroamphetamine XR (ADDERALL XR) 20 mg capsule Take 1 capsule by mouth once daily for 30 days. Do not start before July 27, 2023. 30 capsule 0 No current facility-administered medications for this visit. ROS: GENERAL: Negative for malaise, significant weight loss and fever. HEENT: No changes in hearing or vision, no nose bleeds or other nasal problems. RESPIRATORY: Negative for cough, wheezing and shortness of breath. CARDIOVASCULAR: Negative for chest pain, leg swelling and palpitations. GI: Negative for abdominal discomfort, blood in stools or black stools. : Negative for dysuria, frequency and incontinence. MUSCULOSKELETAL: Negative for joint pain or swelling, back pain, and muscle pain. SKIN: Negative for lesions, rash, and itching. HEMATOLOGY/LYMPHOLOGY Negative for prolonged bleeding, bruising easily, and swollen nodes. ENDOCRINE: Negative for cold or heat intolerance, polyuria, polydipsia and goiter. NEURO: Negative for headaches, syncope, seizures and paralysis. PFSH: See HPI VITAL SIGNS: There were no vitals filed for this visit. MENTAL STATUS EXAM: CONSTITUTIONAL: Well groomed, Appropriately dressed ORIENTATION: Person, Place, Time and Situation MEMORY: Recent intact, Remote intact, Immediate intact CONCENTRATION: Normal MOOD: anxious AFFECT: Full and appropriate to topic SPEECH : Clear & distinct LANGUAGE : Normal ASSOCIATIONS: Intact THOUGHT PROCESS : Logical, Coherent, and Rational PROGRESSION : There was no evidence of disturbance in thought perception or progression. FUND OF KNOWLEDGE : Appropriate and Adequate SUICIDE: None HOMICIDE: None DATA REVIEWED: Psychiatric scales and Electronic medical record DIAGNOSIS: PRIMARY: ADHD, predominantly inattentive type Secondary : Generalized Anxiety Disorder GAF: -60-51 Moderate symptoms or moderate difficulty in social, occupational or school functioning. TREATMENT PLAN: 1. Increase Prozac dose to address anxiety symptoms. 2. Continue Adderall at the same dose. 3. Follow up in person next time to monitor blood pressure and weight. MEDICATION CHANGES: Prozac dose increased to 40 mg. Follow Up: 4 to 6 weeks I spent a total of 26 minutes on the date of the service which included preparing to see the patient, [id number] patient care, completing clinical documentation, obtaining and/or reviewing separately obtained history, counseling and educating the patient/family/caregiver, ordering medications, tests, or procedures, and independently interpreting results (not separately reported). ADD ON PSYCHOTHERAPY CODE : No SIGNATURE: Cecilia Rushing APRN.CNP PATIENT NAME: Dillan Melo DATE: June 18, 2023 TIME: 4:39 PM documented in this encounter [facility] 05-17-2023 Miscellaneous Notes This patient gave consent to this Medical Advice Message and is aware that it may result in a bill to their insurance, as well as the possibility of receiving a bill for a copay and/or deductible. They are an established patient, but are not seeking information exclusively about a problem treated during an in person or video visit in the last seven days. I did not recommend an in person or video visit within seven days of my reply. See the [employer] message reply for my assessment and plan. I spent a total of 10 minutes reviewing the patient's prior medical records and current request for medical advice, prescribing medications or ordering tests (if applicable), replying to the patient, and documenting the encounter. documented in this encounter [facility] 11-25-2022 Instructions Cecilia Rushing APRN.CNP - 11/25/2022 3:11 PM EDT Megan Mayer, It was good to talk with you today. Below is a summary of the plan that we discussed during your appointment for reference. Of course, if you have any questions or concerns do not hesitate to reach out to me via a message or call. Best, Cecilia Rushing APRN.CNP PLAN AND FOLLOW UP: YOU SHOULD SEEK IMMEDIATE MEDICAL ATTENTION AT THE NEAREST EMERGENCY DEPARTMENT OR BY CALLING 911, IF ANY OF THE FOLLOWING OCCURS: - New or worsening thoughts of harming yourself (suicidal thoughts) or others (homicidal thoughts) - Not feeling safe at home or worrying about your ability to remain safe at home If you are having thoughts of harming yourself or others, then you can: - Call the National Suicide Hotline at 4-068-BBOCSCE ( ) or 8-716-918-TALK (1336) - Text 4HPVX to 531708 Medication Update: Venlafaxine 75 mg XR - take 1 capsule once daily; take with 37.5 mg dose. Venlafaxine 37.5 mg XR - take 1 capsule once daily; take with 75 mg dose. Continue Adderall at the same dose. Next appointment: December 24 at 8 am virtual -- Please call my nurse Raquel at [phone] or send me a message in [employer] with any questions or concerns between appointments. documented in this encounter [facility] 11-25-2022 History of Presen t illness Narrative Images from the original note were not included. PSYC FOLLOW UP - PSYCHIATRIC PROGRESS NOTE DIAGNOSIS: ADHD, predominantly inattentive type Generalized Anxiety Disorder GAF: -60-51 Moderate symptoms or moderate difficulty in social, occupational or school functioning. TREATMENT PLAN: Increase Venlafaxine to address anxiety concerns. Continue Adderall at the same dose. Continue individual psychotherapy. Follow up in 4 weeks. Reach out sooner if there is worsening of anxiety or irritability prior to the next appointment. Medication Update: Venlafaxine 75 mg XR - take 1 capsule once daily; take with 37.5 mg dose. Venlafaxine 37.5 mg XR - take 1 capsule once daily; take with 75 mg dose. Continue Adderall at the same dose. The effects and side effects of all the medications were reviewed in detail with the patient. She is in agreement with the treatment plan and aware to reach out with any questions, concerns, or worsening of symptoms prior to the next appointment. PDMP report was reviewed and found to be appropriate without any signs of misuse or diversion. CC: Follow up regarding anxiety and ADHD HPI: Dillan Melo is a 32 year old Female with a history of JOHANN and ADHD presenting today for follow-up. Date of last visit: 10/21/2022 Plan from last visit: Increase Adderall to 20 mg to address her ADHD symptoms. Continue Venlafaxine at the same dose. Continue individual psychotherapy. Follow up in 4 to 6 weeks. Today Dillan shares that her anxiety and irritability has returned. She has noticed that it started to worsen 2 weeks ago. The increase in the Adderall has been helpful as it has helped her get on track with some education at work. She is able to follow conversations better. Unable to recall a specific trigger to worsening her anxiety symptoms. She continues to work on finalizing her divorce. Her is not cooperating. She would have primary custody of the children. She has noticed more irritability in the evening when the Adderall is wearing off. She feels bad about interacting with her children and others in this manner. Does not think that it is in response to her children acting out. Interval Progress: Slightly worse Risks and benefits of the medication, including any black box warnings, were discussed with the patient. Social History: See HPI PATIENT DATA: Generalized Anxiety Disorder Scale (JOHANN-7) JOHANN - 7 SCORES 09/21/2022 10/21/2022 11/25/2022 JOHANN-7 Score 1 2 8 (0-4) minimal anxiety, (5-9) mild anxiety, (10-14) moderate anxiety, (15-21) severe anxiety Patient Health Questionnaire (PHQ-9) PHQ-9 09/21/2022 10/21/2022 11/25/2022 Score 3 2 1 (0-4) minimal depression, (5-9) mild depression, (10-14) moderate depression, (15-19) moderately severe depression, (20-27) severe depression ROS: See HPI General: Negative for fever, malaise, unintentional weight loss HEENT: Negative for recent changes in vision or hearing, no nasal drainage Respiratory: Negative for cough, wheezing or SOB Cardiovascular: Negative for chest pain GI: Negative for nausea, vomiting, change in bowel habits MUSCULOSKELETAL: Negative for acute back or joint pain SKIN: Negative for rash NEURO: Negative for headaches, seizures, focal neurological deficits All other systems negative. VITAL SIGNS: BP 124/66 (11/25/22 1424) Temp Pulse 80 (11/25/22 1424) Resp SpO2 MENTAL STATUS EXAMINATION: Appearance: Appropriately groomed, appears stated age Behavior: Appropriately engaged Psychomotor: No psychomotor agitation Cognition Level of Consciousness: Awake and alert. No fluctuation in wakefulness. Orientation: Grossly oriented Memory: Intact Attention/Concentration: Good Fund of Knowledge: Able to demonstrate an awareness of current events. Mood: Anxious Affect: Congruent to mood Speech/Language: Appropriate tone, prosody, silva, phonetics, and syntax Thought Form: Goal-directed. No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 the patient. She is in agreement with the treatment plan and aware to reach out with any questions, concerns, or worsening of symptoms prior to the next appointment. DISPOSITION: Follow up in 4 to 5 weeks. I spent a total of 60 minutes on the date of the service which included preparing to see the patient, [id number] patient care, completing clinical documentation, obtaining and/or reviewing separately obtained history, performing a medically appropriate examination, counseling and educating the patient/family/caregiver, ordering medications, tests, or procedures, communicating with other HCPs (not separately reported), independently interpreting results (not separately reported), and communicating results to the patient/family/caregiver. ADD ON PSYCHOTHERAPY CODE : No SIGNATURE: Cecilia Rushing APRN.CNP PATIENT NAME: Dillan Melo DATE: July 22, 2022 TIME: 8:44 AM PAGER : documented in this encounter [facility] 06-12-2022 Miscellaneous Notes Left message informing patient, phone number to reach the office was left for any questions or concerns. Beth Camacho MA ----- Message from Kendra Guzman APRN.CRISTIAN sent at 06/11/2022 5:00 PM EDT ----- Antibiotic is appropriate for her infection documented in this encounter [facility] 06-09-2022 Miscellaneous Notes New order has been placed Referral needs to be CONSULT TO BEHAVIORAL HEALTH. Please see Psych referral and advise patient. documented in this encounter [facility] 06-09-2022 Miscellaneous Notes Addended by: THERESE YAÑEZ on: 06/09/2022 10:03 AM Modules accepted: Orders documented in this encounter [facility] 06-09-2022 Note HNO ID: [id number] Author: Kendra Guzman APRN.INSTRUCTOR ROBOTICS Service: ? Author Type: Nurse Practitioner Type: Progress Notes Filed: 06/09/2022 8:11 AM Note Text: This note was created using [employer]. Subjective Dillan Melo is a 31 year old female here to discuss medications for depression and anxiety. Pt is new to me. She is in counseling. She feels she is in need for ADHD medication. She reports she was told to see her doctor about medication for ADHD by her counselor. Reports she was told she had PTSD and she should look into being treated for ADHD. She reports some anxiety but feels a lot on her symptoms are related to inability to concentrate. She currently is not taking anything for this. Also concerns she has been fighting a UTI. Reports her symptoms started last week with blood in in her urine, and burning when she urinates. She has been drinking cranberry juice and baking soda water. ALLERGIES No Known Allergies Current Outpatient Medications Medication Sig Dispense Refill busPIRone (BUSPAR) 10 mg tablet Take 1 tablet by mouth three times daily. 90 tablet 1 sertraline (ZOLOFT) 100 mg tablet Take 1 tablet by mouth once daily. 30 tablet 5 PREVIFEM 0.25-35 mg-mcg per tablet Take 1 tablet by mouth once daily. 1 Package 11 No current facility-administered medications for this visit. ACTIVE PROBLEM LIST Anxiety State Oral Contraceptive Prescribed PAST MEDICAL HISTORY Diagnosis Date Altered bowel function Anxiety state Diarrhea Oral contraceptive prescribed PAST SURGICAL HISTORY Procedure Laterality Date NONE Social History Tobacco Use Smoking status: Never Smokeless tobacco: Never Substance Use Topics Alcohol use: Yes Comment: Type: wine; Comments: Occasionally Drug use: No Family History Problem Relation Age of Onset Breast Cancer Maternal Grandmother Colon Cancer Maternal Grandmother 60's other (Cancer - other:) Maternal Grandmother other (Colorectal cancer) Maternal Grandmother Review of Systems Constitutional: Negative for activity change, appetite change, chills, diaphoresis, fatigue, fever and unexpected weight change. Respiratory: Negative for cough, shortness of breath and wheezing. Cardiovascular: Negative for chest pain, palpitations and leg swelling. Neurological: Negative for dizziness and headaches. Psychiatric/Behavioral: Positive for decreased concentration. Negative for confusion, dysphoric mood and sleep disturbance. The patient is nervous/anxious. Objective 06/09/22 0725 BP: 110/70 BP Site: Right Arm BP Position: Sitting BP Cuff Size: Regular Adult Pulse: 82 Resp: 18 Temp: 36.8 ?C (98.2 ?F) TempSrc: Oral SpO2: 99% Weight: 53.1 kg (117 lb) Height: 157.5 cm (5' 2") Physical Exam Vitals and nursing note reviewed. Constitutional: Appearance: Normal appearance. Cardiovascular: Rate and Rhythm: Normal rate and regular rhythm. Pulses: Normal pulses. Heart sounds: Normal heart sounds. Pulmonary: Effort: Pulmonary effort is normal. No respiratory distress. Breath sounds: Normal breath sounds. No wheezing, rhonchi or rales. Abdominal: General: Abdomen is flat. Palpations: Abdomen is soft. Tenderness: There is no abdominal tenderness. There is no right CVA tenderness or left CVA tenderness. Neurological: Mental Status: She is alert and oriented to person, place, and time. Psychiatric: Mood and Affect: Mood normal. Behavior: Behavior normal. Thought Content: Thought content normal. Judgment: Judgment normal. Office Visit on 06/09/2022 Component Date Value Ref Range Status GLUCOSE UA (POCT) 06/09/2022 Negative Negative mg/dL Final BILIRUBIN UA (POCT) 06/09/2022 Negative Negative Final KETONE UA (POCT) 06/09/2022 Negative Negative mg/dL Final SPECIFIC GRAVITY UA (POCT) 06/09/2022 1.015 1.005 - 1.030 Final HEMOGLOBIN/BLOOD UA (POCT) 06/09/2022 Trace-intact (A) Negative Final PH UA (POCT) 06/09/2022 8.5 (A) 4.5 - 8.0 Final PROTEIN UA (POCT) 06/09/2022 Negative Negative mg/dL Final UROBILINOGEN UA (POCT) 06/09/2022 0.2 Normal E.U./dL Final NITRITE UA (POCT) 06/09/2022 Negative Negative Final LEUKOCYTES UA (POCT) 06/09/2022 Small (A) Negative Final COLOR UA (POCT) 06/09/2022 Yellow Final CLARITY UA (POCT) 06/09/2022 Cloudy Final Negative HCG today. ASSESSMENT/PLAN: 1. Anxiety state - ICD9: 300.00, ICD10: F41.1 (primary diagnosis) - pt with hx of anxiety. Counselor recommended treatement for posssible ADHD. I reviewed with pt that I do not dx or treat ADHD. I will refer to psychiatry for evaluation and management. She verbalized understanding. - support provided - CONSULT TO PSYCHIATRY 2. Dysuria - ICD9: 788.1, ICD10: R30.0 acute - UA positive for tod esterase and hematuria - Send urine for culture - Begin treatment with Macrobid 100 mg BID for 5 days - Patient education for prevention given - URINE CULTURE - HCG QUAL UR B/O - NITROFURANTOIN MON (more content not included)... [facility] 06-09-2022 Instructions Kendra Guzman APRN.CRISTIAN - 06/09/2022 7:51 AM EDT ASSESSMENT/PLAN: 1. Anxiety state - ICD9: 300.00, ICD10: F41.1 (primary diagnosis) - CONSULT TO PSYCHIATRY 2. Dysuria - ICD9: 788.1, ICD10: R30.0 acute - UA positive for tod esterase and hematuria - Send urine for culture - Begin treatment with Macrobid 100 mg BID for 5 days - Patient education for prevention given - URINE CULTURE - HCG QUAL UR B/O - NITROFURANTOIN MONOHYDRATE & MACROCRYSTAL 100 MG ORAL CAP Kendra Guzman APRN.INSTRUCTOR ROBOTICS documented in this encounter [facility] 06-09-2022 History of Presen t illness Narrative This note was created using [employer]. Subjective Dillan Melo is a 31 year old female here to discuss medications for depression and anxiety. Pt is new to me. She is in counseling. She feels she is in need for ADHD medication. She reports she was told to see her doctor about medication for ADHD by her counselor. Reports she was told she had PTSD and she should look into being treated for ADHD. She reports some anxiety but feels a lot on her symptoms are related to inability to concentrate. She currently is not taking anything for this. Also concerns she has been fighting a UTI. Reports her symptoms started last week with blood in in her urine, and burning when she urinates. She has been drinking cranberry juice and baking soda water. ALLERGIES No Known Allergies Current Outpatient Medications Medication Sig Dispense Refill busPIRone (BUSPAR) 10 mg tablet Take 1 tablet by mouth three times daily. 90 tablet 1 sertraline (ZOLOFT) 100 mg tablet Take 1 tablet by mouth once daily. 30 tablet 5 PREVIFEM 0.25-35 mg-mcg per tablet Take 1 tablet by mouth once daily. 1 Package 11 No current facility-administered medications for this visit. ACTIVE PROBLEM LIST Anxiety State Oral Contraceptive Prescribed PAST MEDICAL HISTORY Diagnosis Date Altered bowel function Anxiety state Diarrhea Oral contraceptive prescribed PAST SURGICAL HISTORY Procedure Laterality Date NONE Social History Tobacco Use Smoking status: Never Smokeless tobacco: Never Substance Use Topics Alcohol use: Yes Comment: Type: wine; Comments: Occasionally Drug use: No Family History Problem Relation Age of Onset Breast Cancer Maternal Grandmother Colon Cancer Maternal Grandmother 60's other (Cancer - other:) Maternal Grandmother other (Colorectal cancer) Maternal Grandmother Review of Systems Constitutional: Negative for activity change, appetite change, chills, diaphoresis, fatigue, fever and unexpected weight change. Respiratory: Negative for cough, shortness of breath and wheezing. Cardiovascular: Negative for chest pain, palpitations and leg swelling. Neurological: Negative for dizziness and headaches. Psychiatric/Behavioral: Positive for decreased concentration. Negative for confusion, dysphoric mood and sleep disturbance. The patient is nervous/anxious. Objective 06/09/22 0725 BP: 110/70 BP Site: Right Arm BP Position: Sitting BP Cuff Size: Regular Adult Pulse: 82 Resp: 18 Temp: 36.8 C (98.2 F) TempSrc: Oral SpO2: 99% Weight: 53.1 kg (117 lb) Height: 157.5 cm (5' 2") Physical Exam Vitals and nursing note reviewed. Constitutional: Appearance: Normal appearance. Cardiovascular: Rate and Rhythm: Normal rate and regular rhythm. Pulses: Normal pulses. Heart sounds: Normal heart sounds. Pulmonary: Effort: Pulmonary effort is normal. No respiratory distress. Breath sounds: Normal breath sounds. No wheezing, rhonchi or rales. Abdominal: General: Abdomen is flat. Palpations: Abdomen is soft. Tenderness: There is no abdominal tenderness. There is no right CVA tenderness or left CVA tenderness. Neurological: Mental Status: She is alert and oriented to person, place, and time. Psychiatric: Mood and Affect: Mood normal. Behavior: Behavior normal. Thought Content: Thought content normal. Judgment: Judgment normal. Office Visit on 06/09/2022 Component Date Value Ref Range Status GLUCOSE UA (POCT) 06/09/2022 Negative Negative mg/dL Final BILIRUBIN UA (POCT) 06/09/2022 Negative Negative Final KETONE UA (POCT) 06/09/2022 Negative Negative mg/dL Final SPECIFIC GRAVITY UA (POCT) 06/09/2022 1.015 1.005 - 1.030 Final HEMOGLOBIN/BLOOD UA (POCT) 06/09/2022 Trace-intact (A) Negative Final PH UA (POCT) 06/09/2022 8.5 (A) 4.5 - 8.0 Final PROTEIN UA (POCT) 06/09/2022 Negative Negative mg/dL Final UROBILINOGEN UA (POCT) 06/09/2022 0.2 Normal E.U./dL Final NITRITE UA (POCT) 06/09/2022 Negative Negative Final LEUKOCYTES UA (POCT) 06/09/2022 Small (A) Negative Final COLOR UA (POCT) 06/09/2022 Yellow Final CLARITY UA (POCT) 06/09/2022 Cloudy Final Negative HCG today. ASSESSMENT/PLAN: 1. Anxiety state - ICD9: 300.00, ICD10: F41.1 (primary diagnosis) - pt with hx of anxiety. Counselor recommended treatement for posssible ADHD. I reviewed with pt that I do not dx or treat ADHD. I will refer to psychiatry for evaluation and management. She verbalized understanding. - support provided - CONSULT TO PSYCHIATRY 2. Dysuria - ICD9: 788.1, ICD10: R30.0 acute - UA positive for tod esterase and hematuria - Send urine for culture - Begin treatment with Macrobid 100 mg BID for 5 days - Patient education for prevention given - URINE CULTURE - HCG QUAL UR B/O - NITROFURANTOIN MONOHYDRATE & MACROCRYSTAL 100 MG ORAL CAP Kendra Guzman APRN.INSTRUCTOR ROBOTICS documented in this encounter [facility] Evaluation note Diagnosis Anxiety state- Primary Anxiety state, unspecified Dysuria [facility] Diagnosis Anxiety state- Primary Anxiety state, unspecified [facility]No [facility] information [facility]: Evaluation note* Diagnosis JOHANN (generalized anxiety disorder)- Primary Generalized anxiety disorder Encounter for therapeutic drug level monitoring Encounter for therapeutic drug monitoring documented in this encounter [facility] note* Diagnosis JOHANN (generalized anxiety disorder)- Primary Generalized anxiety disorder [facility] Diagnosis Encounter for therapeutic drug level monitoring- Primary Encounter for therapeutic drug monitoring ADHD (attention deficit hyperactivity disorder), 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 JOHANN (generalized anxiety disorder) Generalized anxiety disorder documented in this encounter [facility] note* Diagnosis JOHANN (generalized anxiety disorder)- Primary Generalized anxiety disorder ADHD (attention deficit hyperactivity disorder), 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 [facility]* Diagnosis JOHANN (generalized anxiety disorder)- Primary Generalized anxiety disorder ADHD (attention deficit hyperactivity disorder), 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 [facility]* Diagnosis Withdrawal from other psychoactive substance (HCC)- Primary [facility]* Diagnosis ADHD (attention deficit hyperactivity disorder), inattentive type- Primary Attention deficit disorder without mention of hyperactivity JOHANN (generalized anxiety disorder) Generalized anxiety disorder documented in this encounter [facility] note* Diagnosis ADHD (attention deficit hyperactivity disorder), 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 documented in this encounter [facility] note* Diagnosis ADHD (attention deficit hyperactivity disorder), 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 [facility]* Diagnosis NO SHOW- Primary documented in this encounter [facility] note* Diagnosis ADHD (attention deficit hyperactivity disorder), 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 documented in this encounter [facility] note* Diagnosis ADHD (attention deficit hyperactivity disorder), 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 [facility] ADHD (attention deficit hyperactivity disorder), inattentive type- Primary Attention deficit disorder without mention of hyperactivity JOHANN (generalized anxiety disorder) Generalized anxiety disorder Weight gain due to medication Other symptoms concerning nutrition, metabolism, and development [facility] Diagnosis ADHD (attention deficit hyperactivity disorder), 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 [facility] Diagnosis ADHD (attention deficit hyperactivity disorder), inattentive type- Primary Attention deficit disorder without mention of hyperactivity JOHANN (generalized anxiety disorder) Generalized anxiety disorder [facility] Diagnosis ADHD (attention deficit hyperactivity disorder), 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 JOHANN (generalized anxiety disorder) Generalized anxiety disorder [facility] Diagnosis ADHD (attention deficit hyperactivity disorder), 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 JOHANN (generalized anxiety disorder) Generalized anxiety disorder [facility] Diagnosis ADHD (attention deficit hyperactivity disorder), inattentive type- Primary Attention deficit disorder without mention of hyperactivity Encounter for long-term (current) use of medications Encounter for long-term (current) use of other medications JOHANN (generalized anxiety disorder) Generalized anxiety disorder Psychosocial stressors Other psychological or physical stress, not elsewhere classified [facility] Diagnosis ADHD (attention deficit hyperactivity disorder), inattentive type- Primary Attention deficit disorder without mention of hyperactivity Encounter for long-term (current) use of medications Encounter for long-term (current) use of other medications [facility] Diagnosis ADHD (attention deficit hyperactivity disorder), 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 [facility] Diagnosis ADHD (attention deficit hyperactivity disorder), 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 [facility] Diagnosis ADHD (attention deficit hyperactivity disorder), 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 [facility] Diagnosis ADHD (attention deficit hyperactivity disorder), inattentive type- Primary Attention deficit disorder without mention of hyperactivity JOHANN (generalized anxiety disorder) Generalized anxiety disorder Psychosocial stressors Other psychological or physical stress, not elsewhere classified Encounter for long-term (current) use of medications Encounter for long-term (current) use of other medications documented in this encounter [facility] for referral (narrative)* Outpatient Procedure (Routine) - Pending Review Specialty Diagnoses / Procedures Referred By Contac t Referred To Contact [facility] Diagnoses Encounter for therapeutic drug level monitoring Procedures ECG COMPLETE ECG ROUTINE ECG W/LEAST 12 LDS W/I&R Cecilia Rushing APRN.[employer] [address] [place] [address] [facility] [address] [place] [address] Referral ID Status Reason Start Date Expiration Date Visits Requested Visits Authorized [id number] Pending Review Auto-Generat ed Referral 2 07/22/2023 1 1 [facility] for referral (narrative)* Outpatient Procedure (Routine) - Closed Specialty Diagnoses / Procedures Referred By Contac t Referred To Contact [facility] Diagnoses Encounter for therapeutic drug level monitoring Procedures ECG COMPLETE ECG ROUTINE ECG W/LEAST 12 LDS W/I&R Cecilia Rushing APRN.[employer] [address] [place] [address] [facility] [address] [place] [address] Referral ID Status Reason Start Date Expiration Date V isits Requested Visits Authorized [id number] Closed Auto-Generate d Referral 2022 2023 1 1 [facility] Reason for Referral Specialty Diagnoses / Procedures Referred By Contac t Referred To Contact [facility] Department Diagnoses Anxiety state Procedures CONSULT TO PSYCHIATRY OFFICE[facility] 60-74 [facility]UTES Kendra Guzman APRN.[employer] [address] [place] [address] Cecilia Rushing APRN.[employer] [address] [place] [address] Referral ID Status Reason Start Date Expiration Date Visits Requested Visits Authorized [id number] Pending Review PCP Requested Referral 2 09/07/2022 1 1 Specialty Diagnoses / Procedures Referred By Tonia phillip Referred To Contact Diagnoses ADHD (attention deficit hyperactivity disorder), inattentive type Cecilia Rushing, ELECTRIC RAZOR MECHANIC.[employer] [address] [facility] [place] [address] Referral ID Status Reason Start Date Expiration Date Visits Re quested Visits Authorized [id number] Closed 1 1 Chief Complaint and Reason for Visit Chief Complaint ABD PAIN Advance Directives No Advanced Directives Records Found Advance Directive Response Recorded Date/ Time Living Will No June 10 5:40pm Power of Produce Specialist No June 10, 2022 5:40pm Summary Purpose Family History No Family History Records FoundNo Family History Records FoundNo Family History Records Found Additional Source Comments Source Comments (unrecognize d section and content) In the event this informatio n is protected by the Federal Confidentiality of Alcohol and Drug Abuse Patient Records regulations: The Federal rules restrict any use of the information to criminally investigate or prosecute any alcohol or drug abuse patient.[facility] the event this information is protected by the Federal Confidentiality of Alcohol and Drug Abuse Patient Records regulations: The Federal rules restrict any use of the information to criminally investigate or prosecute any alcohol or drug abuse patient.[facility] the event this information is protected by the Federal Confidentiality of Alcohol and Drug Abuse Patient Records regulations: The Federal rules restrict any use of the information to criminally investigate or prosecute any alcohol or drug abuse patient.[facility] the event this information is protected by the Federal Confidentiality of Alcohol and Drug Abuse Patient Records regulations: The Federal rules restrict any use of the information to criminally investigate or prosecute any alcohol or drug abuse patient.[facility] the event this information is protected by the Federal Confidentiality of Alcohol and Drug Abuse Patient Records regulations: The Federal rules restrict any use of the information to criminally investigate or prosecute any alcohol or drug abuse patient.[facility] the event this information is protected by the Federal Confidentiality of Alcohol and Drug Abuse Patient Records regulations: The Federal rules restrict any use of the information to criminally investigate or prosecute any alcohol or drug abuse patient.[facility] the event this information is protected by the Federal Confidentiality of Alcohol and Drug Abuse Patient Records regulations: The Federal rules restrict any use of the information to criminally investigate or prosecute any alcohol or drug abuse patient.[facility] the event this information is protected by the Federal Confidentiality of Alcohol and Drug Abuse Patient Records regulations: The Federal rules restrict any use of the information to criminally investigate or prosecute any alcohol or drug abuse patient.[facility] the event this information is protected by the Federal Confidentiality of Alcohol and Drug Abuse Patient Records regulations: The Federal rules restrict any use of the information to criminally investigate or prosecute any alcohol or drug abuse patient.[facility] the event this information is protected by the Federal Confidentiality of Alcohol and Drug Abuse Patient Records regulations: The Federal rules restrict any use of the information to criminally investigate or prosecute any alcohol or drug abuse patient.[facility] the event this information is protected by the Federal Confidentiality of Alcohol and Drug Abuse Patient Records regulations: The Federal rules restrict any use of the information to criminally investigate or prosecute any alcohol or drug abuse patient.[facility] Hospital[facility] the event this information is protected by the Federal Confidentiality of Alcohol and Drug Abuse Patient Records regulations: The Federal rules restrict any use of the information to criminally investigate or prosecute any alcohol or drug abuse patient.[facility] Hospital[facility] the event this information is protected by the Federal Confidentiality of Alcohol and Drug Abuse Patient Records regulations: The Federal rules restrict any use of the information to criminally investigate or prosecute any alcohol or drug abuse patient.[facility] HospitalIn the event this information is protected by the Federal Confidentiality of Alcohol and Drug Abuse Patient Records regulations: The Federal rules restrict any use of the information to criminally investigate or prosecute any alcohol or drug abuse patient.[facility] HospitalIn the event this information is protected by the Federal Confidentiality of Alcohol and Drug Abuse Patient Records regulations: The Federal rules restrict any use of the information to criminally investigate or prosecute any alcohol or drug abuse patient.[facility] Hospital[facility] the event this information is protected by the Federal Confidentiality of Alcohol and Drug Abuse Patient Records regulations: The Federal rules restrict any use of the information to criminally investigate or prosecute any alcohol or drug abuse patient.[facility] HospitalIn the event this information is protected by the Federal Confidentiality of Alcohol and Drug Abuse Patient Records regulations: The Federal rules restrict any use of the information to criminally investigate or prosecute any alcohol or drug abuse patient.[facility] the event this information is protected by the Federal Confidentiality of Alcohol and Drug Abuse Patient Records regulations: The Federal rules restrict any use of the information to criminally investigate or prosecute any alcohol or drug abuse patient.[facility] Hospital[facility] the event this information is protected by the Federal Confidentiality of Alcohol and Drug Abuse Patient Records regulations: The Federal rules restrict any use of the information to criminally investigate or prosecute any alcohol or drug abuse patient.[facility] HospitalIn the event this information is protected by the Federal Confidentiality of Alcohol and Drug Abuse Patient Records regulations: The Federal rules restrict any use of the information to criminally investigate or prosecute any alcohol or drug abuse patient.[facility] HospitalIn the event this information is protected by the Federal Confidentiality of Alcohol and Drug Abuse Patient Records regulations: The Federal rules restrict any use of the information to criminally investigate or prosecute any alcohol or drug abuse patient.[facility] the event this information is protected by the Federal Confidentiality of Alcohol and Drug Abuse Patient Records regulations: The Federal rules restrict any use of the information to criminally investigate or prosecute any alcohol or drug abuse patient.[facility] HospitalIn the event this information is protected by the Federal Confidentiality of Alcohol and Drug Abuse Patient Records regulations: The Federal rules restrict any use of the information to criminally investigate or prosecute any alcohol or drug abuse patient.[facility] HospitalIn the event this information is protected by the Federal Confidentiality of Alcohol and Drug Abuse Patient Records regulations: The Federal rules restrict any use of the information to criminally investigate or prosecute any alcohol or drug abuse patient.[facility] HospitalIn the event this information is protected by the Federal Confidentiality of Alcohol and Drug Abuse Patient Records regulations: The Federal rules restrict any use of the information to criminally investigate or prosecute any alcohol or drug abuse patient.[facility] HospitalIn the event this information is protected by the Federal Confidentiality of Alcohol and Drug Abuse Patient Records regulations: The Federal rules restrict any use of the information to criminally investigate or prosecute any alcohol or drug abuse patient.[facility] HospitalIn the event this information is protected by the Federal Confidentiality of Alcohol and Drug Abuse Patient Records regulations: The Federal rules restrict any use of the information to criminally investigate or prosecute any alcohol or drug abuse patient.[facility] HospitalIn the event this information is protected by the Federal Confidentiality of Alcohol and Drug Abuse Patient Records regulations: The Federal rules restrict any use of the information to criminally investigate or prosecute any alcohol or drug abuse patient.[facility] HospitalIn the event this information is protected by the Federal Confidentiality of Alcohol and Drug Abuse Patient Records regulations: The Federal rules restrict any use of the information to criminally investigate or prosecute any alcohol or drug abuse patient.[facility] HospitalIn the event this information is protected by the Federal Confidentiality of Alcohol and Drug Abuse Patient Records regulations: The Federal rules restrict any use of the information to criminally investigate or prosecute any alcohol or drug abuse patient.[facility] HospitalIn the event this information is protected by the Federal Confidentiality of Alcohol and Drug Abuse Patient Records regulations: The Federal rules restrict any use of the information to criminally investigate or prosecute any alcohol or drug abuse patient.[facility] HospitalIn the event this information is protected by the Federal Confidentiality of Alcohol and Drug Abuse Patient Records regulations: The Federal rules restrict any use of the information to criminally investigate or prosecute any alcohol or drug abuse patient.[facility] Care Teams (unrecognized sec tion and content) Director Of Corporate Strategy Relationship Specialty Start Date End Date Kendra Guzman, ELECTRIC RAZOR MECHANIC.IN[employer] [address] [place], [place] [id number] PCP - General Internal Medicine 07/27/16 Director Of Corporate Strategy Relationship Specialty Start Date End Date Kendra Guzman, ELECTRIC RAZOR MECHANIC.[employer] [address] [place] [address] PCP - General Internal Medicine 07/27/16 Director Of Corporate Strategy Relationship Specialty Start Date End Date Kendra Guzman, ELECTRIC RAZOR MECHANIC.[employer] [address] [place] [address] PCP - General Internal Medicine 07/27/16 Director Of Corporate Strategy Relationship Specialty Start Date End Date Kendra Guzman, ELECTRIC RAZOR MECHANIC.IN[employer] [address] [place] [address] PCP - General Internal Medicine 07/27/16 Director Of Corporate Strategy Relationship Specialty Start Date End Date Kendra Guzman, ELECTRIC RAZOR MECHANIC.[employer] [address] [place] [address] PCP - General Internal Medicine 07/27/16 Director Of Corporate Strategy Relationship Specialty Start Date End Date Kendra Guzman, ELECTRIC RAZOR MECHANIC.[employer] [address] [place] [address] PCP - General Internal Medicine 07/27/16 Director Of Corporate Strategy Relationship Specialty Start Date End Date Kendra Guzman, ELECTRIC RAZOR MECHANIC.[employer] [address] [place] [address] PCP - General Internal Medicine 07/27/16 Director Of Corporate Strategy Relationship Specialty Start Date End Date Kendra Guzman, ELECTRIC RAZOR MECHANIC.[employer] [address] [place] [address] PCP - General Internal Medicine 07/27/16 Director Of Corporate Strategy Relationship Specialty Start Date End Date Kendra Guzman, ELECTRIC RAZOR MECHANIC.[employer] [address] [place] [address] PCP - General Internal Medicine 07/27/16 Director Of Corporate Strategy Relationship Specialty Start Date End Date Kendra Guzman, ELECTRIC RAZOR MECHANIC.[employer] [address] [place] [address] PCP - General Internal Medicine 07/27/16 Director Of Corporate Strategy Relationship Specialty Start Date End Date Kendra Guzman, ELECTRIC RAZOR MECHANIC.[employer] [address] [place] [address] PCP - General Internal Medicine 07/27/16 Director Of Corporate Strategy Relationship Specialty Start Date End Date Kendra Guzman, ELECTRIC RAZOR MECHANIC.[employer] [address] [place] [address] PCP - General Internal Medicine 07/27/16 Director Of Corporate Strategy Relationship Specialty Start Date End Date Kendra Guzman, ELECTRIC RAZOR MECHANIC.IN[employer] [address] [place] [address] PCP - General Internal Medicine 07/27/16 Director Of Corporate Strategy Relationship Specialty Start Date End Date Kendra Guzman, ELECTRIC RAZOR MECHANIC.IN[employer]CTOR [employer] [address] [place] [address] PCP - General Internal Medicine 07/27/16 Director Of Corporate Strategy Relationship Specialty Start Date End Date Kendra Guzman, ELECTRIC RAZOR MECHANIC.IN[employer] [address] [place] [address] PCP - General Internal Medicine 07/27/16 Director Of Corporate Strategy Relationship Specialty Start Date End Date Kendra Guzman, ELECTRIC RAZOR MECHANIC.IN[employer]CTOR [employer] [address] [place] [address] PCP - General Internal Medicine 07/27/16 Director Of Corporate Strategy Relationship Specialty Start Date End Date Kendra Guzman, ELECTRIC RAZOR MECHANIC.IN[employer] [address] [place] [address] PCP - General Internal Medicine 07/27/16 Director Of Corporate Strategy Relationship Specialty Start Date End Date Kendra Guzman ELECTRIC RAZOR MECHANIC.INSTRUCTOR [employer] [address] [place] [address] PCP - General Internal Medicine 07/27/16 Director Of Corporate Strategy Relationship Specialty Start Date End Date Kendra Guzman, ELECTRIC RAZOR MECHANIC.INSTRUCTOR [employer] [address] [place] [address] PCP - General Internal Medicine 07/27/16 Reason for Visit (unrecogniz ed section and content) Reason Comments Referral Information Reason Comments Results Reason Comments New Patient Evaluation Reason Comments Follow Up Specialty Diagnoses / Procedures Referred By Contac t Referred To Contact Diagnoses Anxiety state Procedures CONSULT BEHAVIORAL HEALTH Kendra Guzman, ELECTRIC RAZOR MECHANIC.[employer] [address] [place] [address] Cecilia Rushing, ELECTRIC RAZOR MECHANIC.[employer] [address] [place] [address] Referral ID Status Reason Start Date Expiration Date Visits Requested Visits Authorized [id number] Ref Not Required PCP Requested Referral 2 09/07/2022 1 1 Reason Comments Follow Up Specialty Diagnoses / Procedures Referred By Contac t Referred To Contact Psychiatry / ADULT PSYCHIATRY Diagnoses follow up Procedures [facility] ADULT Cecilia Rushing, ELECTRIC RAZOR MECHANIC.[employer] [address] [place] [address] Cecilia Rushing, ELECTRIC RAZOR MECHANIC.[employer] [address] [place] [address] Referral ID Status Reason Start Date Expiration Date V isits Requested Visits Authorized [id number] Pending Review 2022 12/22/2022 1 1 Specialty Diagnoses / Procedures Referred By Contac t Referred To Contact Psychiatry / ADULT PSYCHIATRY Diagnoses 4 week follow up Procedures [facility] ADULT Self Cecilia Rushing, ELECTRIC RAZOR MECHANIC.[employer] [address] [place] [address] Referral ID Status Reason Start Date Expiration Date Visits Requested Visits Authorized [id number] Outside PCP OON/Self Pay Override 10/21/2022 04/19/2023 1 1 Reason Comments Refill Request Reason Comments No Show Reason Comments Follow Up ADHD Reason Onset Date Comments Refill Request 05/01/2024 Reason Comments ADD/ADHD Follow up Specialty Diagnoses / Procedures Referred By Contac t Referred To Contact Psychiatry / ADULT PSYCHIATRY Diagnoses follow up Procedures EST [facility] ADULT Cecilia Rushing, ELECTRIC RAZOR MECHANIC.INSTRUCTOR [employer] [address] [place] [address] Cecilia Rushing, ELECTRIC RAZOR MECHANIC.IN[employer] [address] [place] [address] Referral ID Status Reason Start Date Expiration Date V isits Requested Visits Authorized [id number] New Request 05/16/2024 08/14/2024 1 1 Reason Onset Date Comments Refill Request 06/15/2024 Reason Comments Follow Up ADHD/Anxiety Specialty Diagnoses / Procedures Referred By Contac t Referred To Contact Psychiatry / ADULT PSYCHIATRY Diagnoses Provider Ordered Follow up Procedures EST [facility] ADULT Cecilia Rushing, ELECTRIC RAZOR MECHANIC.IN[employer] [address] [place] [address] Cecilia Rushing, ELECTRIC RAZOR MECHANIC.INSTRU[employer] [address] [place] [address] Referral ID Status Reason Start Date Expiration Date V isits Requested Visits Authorized [id number] New Request 09/05/2024 12/04/2024 1 1 Reason Onset Date Comments Refill Request 02/20/2025 Reason Onset Date Comments Refill Request 03/26/2025 Reason Comments Established Patient Follow up for anxiet y and ADHD Specialty Diagnoses / Procedures Referred By Contac t Referred To Contact Psychiatry / ADULT PSYCHIATRY Diagnoses reschedule follow up Procedures VIDEO PSYC/PSYL EST Cecilia Rushing, ELECTRIC RAZOR MECHANIC.IN[employer] [address] [place] [address] Phone: tel: fax: Cecilia Rushing, ELECTRIC RAZOR MECHANIC.INSTRUCTOR [employer] [address] [place] [address] Phone: tel: fax: Referral ID Status Reason Start Date Expiration Date V isits Requested Visits Authorized [id number] New Request 04/03/2025 07/02/2025 1 1 Goals (unrecognized section and content) Goals may be documented in a n alternate section INFORMATION SOURCE (unrecogn ized section and content) DATE CREATED AUTHOR 06/14/2022 [facility] DATE CREATED AUTHOR AUTHOR'S ORGANIZ ATION 02/22/2024 [facility] DATE CREATED AUTHOR AUTHOR'S ORGANIZ ATION 04/11/2025 [facility] FOR RECORDS PERTAINING TO PATIENTS WHO ARE OR HAVE BEEN ENROLLED IN A CHEMICAL DEPENDENCY/SUBSTANCEABUSE PROGRAM, SOME INFORMATION MAY BE OMITTED. This clinical summary was aggregated from multiple sources. Caution should be exercised in using it in the provision of clinical care. This summary normalizes information from multiple sources, and as a consequence, information in this document may materially change the coding, format and clinical context of patient data. In addition, data may be omitted in some cases. CLINICAL DECISIONS SHOULD BE BASED ON THE PRIMARY CLINICAL RECORDS. [employer] [facility]. provides no warranty or guarantee of the accuracy or completeness of information in this document.
[2025-07-08 18:23] LABS: Hematocrit 29.3 % (37-47); Hemoglobin 10.0 g/dL (12.0-15.0); Immature Granulocytes Count 0.070 X10^3/uL (0.0-0.0); Mean Corp Hgb Conc 34.1 g/dL (32-36); Mean Corpuscular Volume 93.6 fL (81-99); Mean Platelet Vol. 9.5 fl (6.2-12.0); NRBC Flagged by Analyzer 0 % (0-5); Platelet Count 285 K/mm3 (150-450); RBC Distribution Width CV 13.2 % (11.6-14.6); RBC Distribution Width SD 44.9 fl (35.1-43.9); Red Blood Count 3.13 M/mm3 (4.2-5.4); White Blood Count 13.2 K/mm3 (4.4-11.0)
[2025-07-08 19:21] LABS: hCG Titer Quant., Serum 7388 mIU/mL (<9 non-preg)
--- NOTE | 2025-07-08 19:27 | CM.ED ---
Social Work Date of referral: 07/08/25 Reason for referral: Primary Care Physician (PCP) not on file. Referred by: Social Work identification Patient provided consent to social work visit. Patient confirmed she is not currently connected to a PCP. Gluing Machine Operator Electronic offered to provide patient with resources which patient respectfully declined, stating she won't go. Gluing Machine Operator Electronic provided verbal education on benefits of having a PCP which patient verbalized she understood. Evie Rashid, JACK TAMP OPERATOR, DRUG DEPARTMENT WORKER
--- NOTE | 2025-07-08 19:37 | US_ITS ---
EXAM: US , Transvaginal CLINICAL INDICATION: 7 WEEKS . VAGINAL BLEEDING. QUANT 7300. TECHNIQUE: Real-time transvaginal obstetrical ultrasound of the maternal pelvis and a first trimester with image documentation. Transvaginal imaging was used for better evaluation of the fetus and adnexa. COMPARISON: No relevant prior studies available. FINDINGS: GESTATION: Complex hypoechoic lesion in the endometrium measuring up to 19 mm. This is questionable gestational sac. Beta HCG level is 7300. Repeat pelvic ultrasound in 10-14 days is recommended. PLACENTA/AMNIOTIC FLUID: Cannot be adequately evaluated due to the early gestational age. UTERUS/CERVIX: Unremarkable. No myometrial mass. The uterus measures 9.7 x 7.4 x 5.8 cm. OVARIES: Unremarkable. No mass. The right ovary measures 3.6 x 2.6 x 1.5 cm. The left ovary measures 3.0 x 2.7 x 2.1 cm. FREE FLUID: No free fluid. US/Transvaginal w/Preg US IMPRESSION: Complex hypoechoic lesion in the endometrium measuring up to 19 mm. This is qu estionable gestational sac. Beta HCG level is 7300. Repeat pelvic ultrasound in 10-14 days is recommended. Reading Location: [id number]
[2025-07-08 19:54] VITALS: BP 115/70; PULSE 73; RESP 18; O2SAT 100
[2025-07-08 21:00] VITALS: PULSE 72; RESP 18; O2SAT 100
--- NOTE | 2025-07-08 22:55 | ED.RN ---
Dr Espana went into room and pt no where to be found.
== END 2025-07-08 22:55 | disposition left against medical advice (07) ==
PROVIDERS: Emergency Provider Emergency Medicine; Visit Provider Emergency Medicine
DX: O20.0 Threatened abortion (principal); O09.521 Supervision of elderly multigravida, first trimester; Z3A.01 Less than 8 weeks gestation of pregnancy; O99.341 Other mental disorders complicating pregnancy, first trimester; F90.9 Attention-deficit hyperactivity disorder, unspecified type; Z79.899 Other long term (current) drug therapy
CPT/HCPCS: 36415; 76817; 84702; 85025; 99282

== ENCOUNTER → 2025-07-09 | Outpatient (CLI) | payer SELFPAY ==
--- NOTE | 2025-07-09 16:00 | POC_PTH ---
PATIENT: DILLAN MIGUEL LOC: [facility] U#:[id number] AGE/SX: 34/F ROOM: RE07/09/[address]: Dr. Evie Bryan DO : 1990 BED: DIS: 07/09/2025 SPEC #: [id number] RECD: 07/09/25 16:35 STATUS: ILDA NISHI #: [id number] PEDRO: 07/09/25 16:[address]: Evie Bryan DEPT: SURGICAL PATHOLOGY RECD BY: Quentin Ortega ENTERED: 07/10/25 10:08 SP TYPE: PROD CONC OTHR DR: No Primary Care Phys Tissues: A - Product of conception, NOS Procedures: Surgery Specimen Level IV HEADER OPERATION: Tissue collection from vaginal wall PRE-OP DIAGNOSIS: Spontaneous TISSUE SUBMITTED: A- Products of conception MICROSCOPIC DIAGNOSIS A. Uterine contents: * Inflamed and degenerating decidua with hemorrhage * Chorionic villi are not identified Note: Clinical and serologic correlation is recommended. MICROSCOPIC DESCRIPTION Slides are reviewed. GROSS DESCRIPTION A. Received in formalin labeled with patient's name and date of is a 3.9 x 2.9 x 1.2 cm aggregate of dark red clotted blood and light brown to parry tissue. parts are not present. Ad Compositor sections are submitted in 3 cassettes. CO 07/10/2025 A. The remainder of the specimen is entirely submitted in cassettes A4-A5, following histopathologic review. CO 07/11/2025 CPT:[id number]
== END | disposition home or self-care (01) ==
LOC: LABSPEC 16:55
PROVIDERS: Referring Provider Obstetrics & Gynecology; Visit Provider Obstetrics & Gynecology
DX: O03.9 Complete or unspecified spontaneous abortion without complication (principal)
CPT/HCPCS: 88305